=== PATIENT | male | born 1965 | race Caucasian/White ===

== ENCOUNTER 2020-01-08 13:02 | Inpatient (IN) | payer OTHER, SELFPAY ==
[2020-01-08] VITALS (22 sets, daily range): BP systolic 100–167; BP diastolic 53–102; PULSE 65–86; RESP 18–34; TEMP 36.9–37.4; O2SAT 70–100; BMI 45.2
--- NOTE | 2020-01-08 | CT_ITS ---
EXAMINATION: CT CHEST, ABDOMEN AND PELVIS WITHOUT IV CONTRAST CLINICAL INFORMATION: Hypoxia status post CPR. Status post CPR. Rule out hematoma COMPARISON: Chest x-ray 01/08/2020, earlier the same day. CT abdomen pelvis 09/08/2017 TECHNIQUE: Multidetector volumetric imaging was performed from the thoracic inlet through the pubic symphysis following the uneventful administration of: Oral contrast: No Intravenous contrast: None. Sagittal and coronal reformatted images were obtained on the technologist workstation. DLP [id number] examination was performed using dose optimization techniques as appropriate, variously including the following: *Automated exposure control *Adjustment of mA and/or kV according to patient size (this includes techniques or standardized protocols for targeted exams where dose is matched to indication/reason for exam; i.e. extremities or head) *Use of iterative reconstruction technique FINDINGS: CHEST: LUNG: There is bibasilar consolidation, at least in part atelectasis but there is likely superimposed aspiration or pneumonia as well. Overall lung volumes are low. Central airways are patent. Endotracheal tube seen with tip 4.5 cm above the celestina. MEDIASTINUM: Moderate cardiomegaly. Trace pericardial fluid. There are scattered prominent mediastinal lymph nodes. Among the largest on the following: A 1.7 x 1.1 cm left high prevascular lymph node, 2.0 x 1.1 cm right paratracheal lymph node, and a 1.2 x 1.1 cm right superior mediastinal lymph node. PLEURA: Small bilateral pleural effusions. CHEST WALL/AXILLA: No axillary or internal mammary lymphadenopathy. ABDOMEN/PELVIS: The lack of intravenous contrast limits evaluation of the solid visceral organs including the liver, spleen, pancreas, and kidneys. In addition, there is respiratory motion artifact during the exam. LIVER, GALLBLADDER, AND BILIARY TREE: Limited non-contrast evaluation is normal. No gross focal hepatic lesion. Normal liver size and contour. No gross biliary ductal dilation. The gallbladder is unremarkable with no evidence of radiopaque gallstones, gallbladder wall thickening, or obvious pericholecystic inflammatory changes. PANCREAS: Limited non-contrast evaluation is normal. No lauren-pancreatic fluid. SPLEEN: Limited non-contrast evaluation is normal. ADRENAL GLANDS: Normal; no adrenal mass. KIDNEYS AND URETERS: Limited non-contrast evaluation is normal. No hydronephrosis, hydroureter, or calculi seen. No perinephric stranding. GASTROINTESTINAL TRACT: An enteric tube descends the esophagus into the stomach. The tip is beyond the pylorus in the proximal duodenum. Small bowel is nondilated. No evidence of colitis or diverticulitis. ABDOMINAL WALL: There is fluid and fat stranding of the umbilicus. Recommend correlation with physical exam. LYMPH NODES: No pathologically enlarged lymph nodes in the abdomen or pelvis. VASCULAR: Normal caliber abdominal aorta. There is a right common femoral venous catheter. BLADDER: Bladder is collapsed with Mcleod catheter in place. PELVIC VISCERA: Normal noncontrast appearance of the prostate and seminal vesicles. OSSEOUS STRUCTURES: Right total hip arthroplasty with streak artifact. Degenerative changes of the spine. IMPRESSION: Small bilateral pleural effusions with bilateral lower lobe consolidation, at least in part atelectasis but there is likely some component of concomitant aspiration or pneumonia. Moderate cardiomegaly. Nonspecific mediastinal lymphadenopathy. There is fluid and fat stranding of the umbilicus. Recommend correlation with physical exam this could be scarring from prior laparoscopic surgery with an umbilical port. Although evaluation of the abdomen and pelvis is limited by lack of IV contrast and motion artifact, no acute abnormalities are seen.
--- NOTE | 2020-01-08 | CT_ITS ---
EXAMINATION: CT HEAD WITHOUT CONTRAST CLINICAL INFORMATION: Respiratory arrest. Status post CPR with poor return to baseline mental status. COMPARISON: None TECHNIQUE: Contiguous axial imaging was performed from the skull base to vertex without intravenous administration of contrast. This CT examination was performed using dose optimization techniques as appropriate, variously including the following: *Automated exposure control *Adjustment of mA and/or kV according to patient size (this includes techniques or standardized protocols for targeted exams where dose is matched to indication/reason for exam; i.e. extremities or head) *Use of iterative reconstruction technique DLP: 976.64 mGy-cm FINDINGS: The patient was moving, not cooperative for the CT exam. As result, there is motion degradation of images. No hemorrhage is identified. No evidence of cerebral edema. The goldstein-white matter differentiation appears to be maintained. No extra-axial fluid collection, focal mass effect or midline shift. The ventricles have normal size and configuration. The brainstem and cerebellar hemispheres are unremarkable. There is atherosclerotic calcification of cavernous carotid arteries. The mastoid air cells are well aerated. Mucosal thickening of ethmoid, sphenoid and maxillary sinuses without air-fluid levels. The orbits, globes and temporomandibular joints are unremarkable. IMPRESSION: * Images of the head are degraded in diagnostic quality due to patient motion. * No evidence of hemorrhage, cerebral edema or other acute intracranial pathology.
--- NOTE | 2020-01-08 13:13 | ED_ITS ---
HPI - CPR General Stated Complaint: RESPIRATORY ARREST Time Seen by Provider: 01/08/20 13:13 Source: family and EMS Mode of arrival: EMS Limitations: other (respiratory arrest unresponsive) History of Present Illness HPI narrative: patient showed up to grocery store c/o dyspnea to friend, 911 called, paramedics state patient arrested with them and stated I have fluid in my lungs. on arrival to the ED he was being bagged, PEA with no pulses, central and cyanotic, immediate CPR started MD complaint: stopped breathing Onset (ago): minute(s) (just prior to arrival ) Timing confirmed by: other (EMS) Place: street Bystander CPR performed: No AED applied by bystander/community health promoter: No Initial findings in the field: agonal and other rhythm (bradycardic) Associated symptoms: shortness of breath Known history of: other (asthma/CHF) Treatments prior to arrival: BMV Related Data Home Medications Medication Instructions Recorded Confirmed acetaminophen 650 mg PO Q12H PRN 01/08/20 01/08/20 albuterol sulfate [ProAir HFA] 2 puff INHALATION Q6H PRN 01/08/20 01/08/20 amlodipine 10 mg PO DAILY 01/08/20 01/08/20 atorvastatin 40 mg PO DAILY 01/08/20 01/08/20 buprenorphine-naloxone [Suboxone] 2.5 film BUCCAL DAILY 01/08/20 01/08/20 carvedilol 6.25 mg PO BID 01/08/20 01/08/20 cholecalciferol (vitamin D3) 25 mcg PO DAILY 01/08/20 01/08/20 [Vitamin D3] fluticasone propion-salmeterol 1 inh INHALATION BID 01/08/20 01/08/20 [AirDuo RespiClick] furosemide 20 mg PO DAILY 01/08/20 01/08/20 gabapentin 1,200 mg PO TID 01/08/20 01/08/20 isosorbide mononitrate 30 mg PO DAILY 01/08/20 01/08/20 lisinopril 40 mg PO DAILY 01/08/20 01/08/20 Allergies Allergy/AdvReac Type Severity Reaction Status Date / Time penicillin V Allergy Unknown Verified 08/22/19 00:00 Penicillins [PENICILLINS] Allergy Unknown UNKNOWN Unverified 12/13/19 15:15 penicillin AdvReac Unknown hives Uncoded 12/04/19 00:00 Review of Systems Review of Systems: ROS unable to be obtained due to altered mental status [facility] Past Medical History Source: old records reviewed Medical History (Updated 01/08/20 @ 15:02 by Malissa Reynolds DO) Arthritis Asthma CHF (congestive heart failure) Hernia HTN (hypertension) Social History Social History (Updated 01/08/20 @ 13:47 by Malissa Reynolds DO) Alcohol intake: current Smoking Status: Current every day smoker Substance Use Type Other:: family suspects had a long history a while ago Advance Directives: No Advance Directives Information Provided: No Physical Exam Vital Signs: Vital Signs: Vital Signs Temp Pulse BP Pulse Ox 01/08/20 13:52 99.3 F 81 157/99 H 100 01/08/20 13:40 99.1 F 85 130/90 H 100 01/08/20 13:35 84 167/102 H 100 Appearance: severe distress, cyanotic, no movement, no respirations Eyes: pupils fixed and dilated ENT: bloody secretions noted Neck: short neck and obese CVS: no spontaneous pulses, no cardiac activity on US Respiratory: severe respiratory distress. Breath sounds absent, cyanotic, being bagged on arrival Abdomen: Soft and obese Skin: Skin cool and cyanotic Extremities: No lower extremity edema. no trauma Neuro: no response to stimuli, no movements, fixed and dilated pupils. Course Course Course Narrative: ROSC after 4 to 5 minutes of CPR, IV steroids, IV lasix, nebulization, no neurologic activity at this time, pupils fixed and dilated sedation held Reevaluation(s) Reevaluation #1: pupils reactive 3mm, starting to move around, sedation ordered Time: 14:00 Reevaluation #2: lactic acidosis and lab abnormalities due to hypoxia and not infection or severe sepsis, responds better to propofol sedation, biting at his tube Time: 14:27 Procedures Procedure Narrative Procedure Narrative: CPR with manual compressions, 2 epi, BS 118, 1st cardiac US showed no activity and PEA on monitor, 2nd US after ROSC hyperkinetic activity Central Line Placement Right Femoral: Time Out Performed: Yes Patient Placed on Monitor/Pulse Ox: Yes MD Prep: mask, gown, gloves and other Central Line Prep: Chlorhexidine scrub and sterile drapes applied Ultrasound Used for Placement: Yes Central Line Lumen Inserted: triple Post Procedure: sutured in place, good blood return, all ports aspirated, flushed, capped and sterile dressing applied Post Procedure X-Ray: tip of catheter in good position Patient Tolerated Procedure: well Complications: none Intubation Time out performed: No sedative: none Laryngoscope: Williams ET Tube Size: 7.5 ET Tube Uncuffed: No Tube Secured Depth (cm): 24 Tube Secured Location: teeth Tube Placement Confirmation: visualized tube passing through cords and equal breath sounds bilaterally Patient Tolerated Procedure: other (2 attempts due to size and bloody secretions in airway) Intubation Complications: difficult intubation (2 attempts bagged in between done in less than 1 minute) MDM - Cardiac Arrest/CPR MDM Narrative Medical decision making narrative: 54 yo male with asthma and CHF - respiratory arrest with ROSC in ED suspect asthma/CHF, cyanotic on arrival without pulses, unknown downtime but no neurologic activity Lab Data Result diagrams: 01/08/20 13:28 01/08/20 13:28 Labs: Lab Results 01/08/20 01/08/20 01/08/20 Range/Units 13:05 13:27 13:28 WBC 10.2 (4.8-10.8) X10*3/uL RBC 4.56 L (4.60-5.80) X10*6/uL Hgb 14.4 (14.0-18.0) g/dl Hct 48.9 (42-52) % MCV 107.2 H (80-98) fL MCH 31.6 (27.0-33.0) pg MCHC 29.4 L (31.0-36.0) g/dl RDW 15.2 (11.0-16.0) % Plt Count 167 (160-400) X10*3/uL MPV 11.8 (9.4-12.4) fL Immature Gran % (Auto) 1.0 H (0.0-0.4) % Neut % (Auto) 62.4 (45-73) % Lymph % (Auto) 25.1 (20-40) % [place] % (Auto) 9.9 (2-11) % Eos % (Auto) 1.3 (0-4) % Baso % (Auto) 0.3 (0-2) % Lymph # (Auto) 2.6 (1.2-4.9) X10*3/uL [place] # (Auto) 1.0 (0.1-1.2) X10*3/uL Eos # (Auto) 0.1 (0.0-0.4) X10*3/uL Baso # (Auto) 0.0 (0.0-0.2) X10*3/uL Abs Immat Gran (auto) 0.10 H (0.00-0.03) X10*3/uL Absolute Neuts (auto) 6.4 (2.0-8.3) X10*3/uL Absolute Nucleated RBC 0.160 H (0.0-0.012) X10*3/uL Nucleated RBC % (auto) 1.6 H (0.0-0.2) /100WBC PT (10.8-13.0) SEC INR (0.9-1.1) APTT (24.1-38.0) SEC ABG pH (7.35-7.45) ABG pCO2 (32-45) mmhg ABG pO2 (83-108) mmhg ABG HCO3 (22-26) mmol/l ABG O2 Saturation % ABG Base Excess Oxygen Given Sodium (135-145) mmol/L Potassium (3.3-5.1) mmol/l Chloride (96-108) mmol/L Carbon Dioxide (22-29) mmol/L Anion Gap (12-20) BUN (9-16) mg/dL Creatinine (0.5-1.4) mg/dL Estim Creat Clear Calc Estimated GFR POC Glucose 113 (60-115) mg/dL Random Glucose (60-115) mg/dL Lactic Acid (0.5-2.0) mmol/L Calcium (8.4-10.2) mg/dL Magnesium (1.6-2.6) mg/dL Total Bilirubin (0.0-1.0) mg/dL Direct Bilirubin (0.0-0.5) mg/dL AST (5-37) U/L ALT (0-40) U/L Alkaline Phosphatase (39-117) U/L Total Protein (6.5-8.0) g/dL Albumin (3.5-5.0) g/dL Lipase (8-78) U/L Urine Color YELLOW Urine Appearance CLEAR Urine pH 6.0 (5.0-8.0) Ur Specific [place] 1.025 (1.005-1.025) Urine Protein 2+ H (NEG-TRACE) MG/DL Urine Glucose (UA) NEG (NEG) MG/DL Urine Ketones 5 (NEG) MG/DL Urine Blood TRACE (NEG) Urine Nitrite NEG (NEG) Ur Leukocyte Esterase NEG (NEG) Urine RBC 0-2 (0) /HPF Urine WBC 0 (0-4) /HPF Ur Squamous Epith Cells TRACE /LPF Urine Bacteria NONE /LPF Urine Sperm NOTED 01/08/20 01/08/20 01/08/20 Range/Units 13:28 13:28 13:28 WBC (4.8-10.8) X10*3/uL RBC (4.60-5.80) X10*6/uL Hgb (14.0-18.0) g/dl Hct (42-52) % MCV (80-98) fL MCH (27.0-33.0) pg MCHC (31.0-36.0) g/dl RDW (11.0-16.0) % Plt Count (160-400) X10*3/uL MPV (9.4-12.4) fL Immature Gran % (Auto) (0.0-0.4) % Neut % (Auto) (45-73) % Lymph % (Auto) (20-40) % [place] % (Auto) (2-11) % Eos % (Auto) (0-4) % Baso % (Auto) (0-2) % Lymph # (Auto) (1.2-4.9) X10*3/uL [place] # (Auto) (0.1-1.2) X10*3/uL Eos # (Auto) (0.0-0.4) X10*3/uL Baso # (Auto) (0.0-0.2) X10*3/uL Abs Immat Gran (auto) (0.00-0.03) X10*3/uL Absolute Neuts (auto) (2.0-8.3) X10*3/uL Absolute Nucleated RBC (0.0-0.012) X10*3/uL Nucleated RBC % (auto) (0.0-0.2) /100WBC PT 12.5 (10.8-13.0) SEC INR 1.1 (0.9-1.1) APTT 30.7 (24.1-38.0) SEC ABG pH (7.35-7.45) ABG pCO2 (32-45) mmhg ABG pO2 (83-108) mmhg ABG HCO3 (22-26) mmol/l ABG O2 Saturation % ABG Base Excess Oxygen Given Sodium 145 (135-145) mmol/L Potassium 3.8 (3.3-5.1) mmol/l Chloride 106 (96-108) mmol/L Carbon Dioxide 21 L (22-29) mmol/L Anion Gap 22 H (12-20) BUN 16 (9-16) mg/dL Creatinine 1.28 (0.5-1.4) mg/dL Estim Creat Clear Calc TNP Estimated GFR 59 POC Glucose (60-115) mg/dL Random Glucose 218 H (60-115) mg/dL Lactic Acid 10.3 H* (0.5-2.0) mmol/L Calcium 9.1 (8.4-10.2) mg/dL Magnesium 2.6 (1.6-2.6) mg/dL Total Bilirubin 0.8 (0.0-1.0) mg/dL Direct Bilirubin 0.4 (0.0-0.5) mg/dL AST 46 H (5-37) U/L ALT 51 H (0-40) U/L Alkaline Phosphatase 102 (39-117) U/L Total Protein 7.8 (6.5-8.0) g/dL Albumin 4.4 (3.5-5.0) g/dL Lipase 16 (8-78) U/L Urine Color Urine Appearance Urine pH (5.0-8.0) Ur Specific [place] (1.005-1.025) Urine Protein (NEG-TRACE) MG/DL Urine Glucose (UA) (NEG) MG/DL Urine Ketones (NEG) MG/DL Urine Blood (NEG) Urine Nitrite (NEG) Ur Leukocyte Esterase (NEG) Urine RBC (0) /HPF Urine WBC (0-4) /HPF Ur Squamous Epith Cells /LPF Urine Bacteria /LPF Urine Sperm 10/13/20 Range/Units 13:50 WBC (4.8-10.8) X10*3/uL RBC (4.60-5.80) X10*6/uL Hgb (14.0-18.0) g/dl Hct (42-52) % MCV (80-98) fL MCH (27.0-33.0) pg MCHC (31.0-36.0) g/dl RDW (11.0-16.0) % Plt Count (160-400) X10*3/uL MPV (9.4-12.4) fL Immature Gran % (Auto) (0.0-0.4) % Neut % (Auto) (45-73) % Lymph % (Auto) (20-40) % [place] % (Auto) (2-11) % Eos % (Auto) (0-4) % Baso % (Auto) (0-2) % Lymph # (Auto) (1.2-4.9) X10*3/uL [place] # (Auto) (0.1-1.2) X10*3/uL Eos # (Auto) (0.0-0.4) X10*3/uL Baso # (Auto) (0.0-0.2) X10*3/uL Abs Immat Gran (auto) (0.00-0.03) X10*3/uL Absolute Neuts (auto) (2.0-8.3) X10*3/uL Absolute Nucleated RBC (0.0-0.012) X10*3/uL Nucleated RBC % (auto) (0.0-0.2) /100WBC PT (10.8-13.0) SEC INR (0.9-1.1) APTT (24.1-38.0) SEC ABG pH 7.22 L (7.35-7.45) ABG pCO2 52 H (32-45) mmhg ABG pO2 199 H (83-108) mmhg ABG HCO3 21 L (22-26) mmol/l ABG O2 Saturation 99.3 % ABG Base Excess -7.5 Oxygen Given 100% Sodium (135-145) mmol/L Potassium (3.3-5.1) mmol/l Chloride (96-108) mmol/L Carbon Dioxide (22-29) mmol/L Anion Gap (12-20) BUN (9-16) mg/dL Creatinine (0.5-1.4) mg/dL Estim Creat Clear Calc Estimated GFR POC Glucose (60-115) mg/dL Random Glucose (60-115) mg/dL Lactic Acid (0.5-2.0) mmol/L Calcium (8.4-10.2) mg/dL Magnesium (1.6-2.6) mg/dL Total Bilirubin (0.0-1.0) mg/dL Direct Bilirubin (0.0-0.5) mg/dL AST (5-37) U/L ALT (0-40) U/L Alkaline Phosphatase (39-117) U/L Total Protein (6.5-8.0) g/dL Albumin (3.5-5.0) g/dL Lipase (8-78) U/L Urine Color Urine Appearance Urine pH (5.0-8.0) Ur Specific [place] (1.005-1.025) Urine Protein (NEG-TRACE) MG/DL Urine Glucose (UA) (NEG) MG/DL Urine Ketones (NEG) MG/DL Urine Blood (NEG) Urine Nitrite (NEG) Ur Leukocyte Esterase (NEG) Urine RBC (0) /HPF Urine WBC (0-4) /HPF Ur Squamous Epith Cells /LPF Urine Bacteria /LPF Urine Sperm ECG Data Attestation: I personally reviewed and interpreted this ECG as follows: ECG interpretation date: 01/08/20 ECG interpretation time: 13:17 Interpretation: Rate: 158 Rhythm: narrow complex tachycardia [place]: normal Normal P waves. Normal MARI. Normal QRS complex. ST T wave : nonspecific qTC:normal prior studies: unavailable The study has been interpreted contemporaneously by me. . 2nd EKG Rate: 80 Rhythm: NSR [place]: normal Normal P waves. Normal MARI. Normal QRS complex. ST T wave : normal qTC: normal prior studies: no acute ischemia The study has been interpreted contemporaneously by me. . Critical Care Time Critical Care Time Critical Care Time: Yes Total Critical Care Time: 60 Attestation: I personally attest to this time spent taking care of the patient Discharge Plan Discharge Clinical Impression: Cardiac arrest due to respiratory disorder, Acidosis, lactic, Asthma, Hypoxia, Congestive heart failure Patient Disposition: Admitted As Inpatient
--- NOTE | 2020-01-08 13:14 | ECG_ITS ---
Test Reason : CARDIAC ARREST Blood Pressure : / mmHG Vent. Rate : 080 BPM Atrial Rate : 080 BPM P-R Int : 174 ms QRS Dur : 084 ms QT Int : 382 ms P-R-T Axes : 071 039 065 degrees QTc Int : 440 ms Normal sinus rhythm Possible Left atrial enlargement Borderline ECG No previous ECGs available Referred By: Malissa Reynolds Electronically Signed By:LUZ ALCALA MD
--- NOTE | 2020-01-08 13:15 | XR_ITS ---
EXAMINATION: XR CHEST CLINICAL INFORMATION: Respiratory arrest, ETT placement. COMPARISON: 06/27/2017 TECHNIQUE: Frontal view of the chest was obtained. FINDINGS: Lordotic rotated positioning. Endotracheal tube present, tip approximately 5.6 cm from the celestina. Consider repositioning. Enlarged cardiac and mediastinal silhouette, accentuated by positioning/technique. There is vascular congestion. Multifocal airspace opacities in bilateral hemithoraces, more prominent in the upper lobes. No large pleural effusions. IMPRESSION: ET tube tip approximately 5.6 cm from the celestina. Clinically correlate. Vascular congestion. Multifocal airspace opacities in bilateral hemithoraces. This result was discussed with Malissa Reynolds at 1415 hours on 01/08/2020 and it was ascertained that the content and urgency of the report was understood at the time of direct communication.
[2020-01-08 13:34] LABS: MANUAL DIFF FLAG NO
[2020-01-08] MEDS: Furosemide 40 MG/4 ML VIAL IVPUSH (13:35)
[2020-01-08] MEDS: methylPREDNISolone Sod Succ/PF 125 MG/2 ML VIAL IVPUSH (13:38)
[2020-01-08 13:39] LABS: Basophils Percent Auto 0.3 % (0-2); Eosinophils Absolute Auto 0.1 X10*3/uL (0.0-0.4); Eosinophils Percent Auto 1.3 % (0-4); Hematocrit 48.9 % (42-52); Hemoglobin 14.4 g/dl (14.0-18.0); Lymphocytes Absolute Auto 2.6 X10*3/uL (1.2-4.9); Lymphocytes Percent Auto 25.1 % (20-40); Mean Corpuscular HGB Conc 29.4 g/dl (31.0-36.0); Mean Corpuscular Hemoglobin 31.6 pg (27.0-33.0); Mean Corpuscular Volume 107.2 fL (80-98); Mean Platelet Volume 11.8 fL (9.4-12.4); Monocytes Percent Auto 9.9 % (2-11); Neutrophils Absolute Auto 6.4 X10*3/uL (2.0-8.3); Neutrophils Percent Auto 62.4 % (45-73); Red Blood Count 4.56 X10*6/uL (4.60-5.80); Red Cell Distribution Width 15.2 % (11.0-16.0); White Blood Count 10.2 X10*3/uL (4.8-10.8)
[2020-01-08 13:47] LABS: INTERNATIONAL NORM RATIO 1.1 (0.9-1.1); Prothrombin Time 12.5 SEC (10.8-13.0)
--- NOTE | 2020-01-08 13:47 | PC.NURSE ---
REMAINS WELL SEDATED. SKIN PWD. PUPILS 3MM FIXED. CAP REFILL BRISK. CONTINUED EFFORTS FOR LABS. BP'S CHECKED MANUALLY INTERMITTENTLY. FAMILY UPDATED BY .
[2020-01-08 13:48] LABS: NRBC Pct Auto 1.6 /100WBC (0.0-0.2)
[2020-01-08 13:49] LABS: Platelet Count 167 X10*3/uL (160-400)
[2020-01-08 13:50] LABS: Partial Thromboplastin Time 30.7 SEC (24.1-38.0)
[2020-01-08 13:55] LABS: Glucose Urine UA NEG (NEG); Leukocyte Esterase Urine NEG (NEG); Nitrite Urine NEG (NEG); Specific Gravity - Urine 1.025 (1.005-1.025); Urine Blood TRACE (NEG); Urine Ketones 5 MG/DL (NEG); Urine Protein 2+ MG/DL (NEG-TRACE)
[2020-01-08 13:57] LABS: Appearance Urine CLEAR; Color Urine YELLOW
--- NOTE | 2020-01-08 13:57 | ECG_ITS ---
Test Reason : CARDIAC ARREST Blood Pressure : / mmHG Vent. Rate : 158 BPM Atrial Rate : 158 BPM P-R Int : 120 ms QRS Dur : 080 ms QT Int : 310 ms P-R-T Axes : 100 045 064 degrees QTc Int : 502 ms Sinus tachycardia Nonspecific ST abnormality Abnormal ECG No previous ECGs available Referred By: Malissa Reynolds Electronically Signed By:LUZ ALCALA MD
[2020-01-08 14:03] LABS: Alanine Aminotransferase 51 U/L (0-40); Albumin Level 4.4 g/dL (3.5-5.0); Alkaline Phosphatase 102 U/L (39-117); Aspartate Amino Transferase 46 U/L (5-37); Bilirubin Direct 0.4 mg/dL (0.0-0.5); Bilirubin Total 0.8 mg/dL (0.0-1.0); Blood Urea Nitrogen 16 mg/dL (9-16); Calcium 9.1 mg/dL (8.4-10.2); Estimated Glomerular Filt Rate 59; Glucose Random 218 mg/dL (60-115); Lactic Acid 10.3 mmol/L (0.5-2.0); Lipase 16 U/L (8-78); Magnesium 2.6 mg/dL (1.6-2.6); Total Protein 7.8 g/dL (6.5-8.0)
[2020-01-08] MEDS: fentaNYL citrate/NS 1,000 MCG/100 ML PLAST..BAG 2.5 MCG IVCONT (14:10)
[2020-01-08] MEDS: Midazolam HCl/PF 2 MG/2 ML VIAL IVPUSH ×3 (14:10→22:15)
[2020-01-08 14:11] LABS: ABG PCO2 52 mmhg (32-45); Base Excess ABG -7.5; HCO3 ABG 21 mmol/l (22-26); PO2 ABG 199 mmhg (83-108); pH ABG 7.22 (7.35-7.45)
[2020-01-08 14:12] LABS: Oxygen Saturation ABG 99.3 %
[2020-01-08 14:13] LABS: Anion Gap 22 (12-20); Carbon Dioxide 21 mmol/L (22-29); Chloride 106 mmol/L (96-108); Potassium 3.8 mmol/l (3.3-5.1); Sodium 145 mmol/L (135-145)
[2020-01-08 14:16] LABS: Glucose, Whole Blood 113 mg/dL (60-115)
[2020-01-08 14:17] LABS: RBC Urine 0-2 /HPF (0); Squamous Epithelial Cell Urine TRACE /LPF; WBC Urine 0 /HPF (0-4)
[2020-01-08 14:18] LABS: Pt Ventilation O2% 100%
[2020-01-08 14:18] LABS: Sperm Urine NOTED
[2020-01-08] MEDS: Midazolam HCl/NS 50 MG/50 ML PLAST..BAG IVCONT (14:20)
--- NOTE | 2020-01-08 14:23 | PC.NURSE ---
pt is a tough stick. call placed to phleb, no answer. called for page to ed.
[2020-01-08] MEDS: propofoL 200 MG/20 ML VIAL 50 MG IVPUSH ×2 (14:45→15:00)
[2020-01-08] MEDS: propofoL 1,000 MG/100 ML VIAL 18.18 MG IVCONT (14:55)
[2020-01-08 15:30] LABS: Ethanol < 10 mg/dL
[2020-01-08 15:33] LABS: Reflex Lactate? Lactic Acid Added
[2020-01-08 15:38] LABS: B Type Natriuretic Peptide 583 pg/mL (<100); Troponin-I High Sensitivity 20.9 ng/L (<3.5-35.0)
[2020-01-08] MEDS: levoFLOXacin/D5W 500 MG/100 ML PIGGYBACK 100 MG IV (15:39)
--- NOTE | 2020-01-08 15:47 | PC.NURSE ---
This rn has been with patient since arriva. care just transfered to satinder tompkins for transfer to icu. After intubation pt was well sedated. Aprox 20 minutes after intuvatio pt began to de la torre tube. Secretions became pink after pt bit his tounge. Pt needed frequent suctioning. :Labs were difficult to obtain. Sedaction titration was as folllows: Fentanyl drip 1420 increased to 75 mcg/hr, 1430 100mcg/hr, 1510 125 mcg/kr, 1530 150mcg/hr versed increased to 6mg/hr at 1445 Propfol drip increased to 60mcg/kg/min imidiatly after initial drip. Sister is currently at [facility]. ED DOc inserted femoral central line [id number] This rn has updated girlfriend via phone and sister at bedside. pt is makng urine. awaits transfer to icu.
--- NOTE | 2020-01-08 15:52 | XR_ITS ---
EXAMINATION: XR CHEST CLINICAL INFORMATION: Evaluate orogastric tube placement COMPARISON: Previous chest x-ray from earlier the same day TECHNIQUE: Frontal view of the chest was obtained. FINDINGS: There is an endotracheal tube with tip 5.8 cm above the celestina. There is a enteric tube appears coiled in the esophagus with tip projecting superiorly, not included in the [id number]. The cardiac silhouette is enlarged but stable. Mediastinal contours appear prominent but stable as well. There may be pulmonary venous redistribution. There is bilateral predominantly perihilar airspace disease. Differential would include pulmonary edema, pneumonia and the right clinical setting pulmonary hemorrhage. There is no pleural effusion or pneumothorax. Bony structures are unremarkable. IMPRESSION: Orogastric tube coiled in the esophagus. ET tube in satisfactory position. Stable enlargement of the cardiac silhouette and bilateral airspace disease.
[2020-01-08] MEDS: propofoL 1,000 MG/100 ML VIAL 45.45 MG IVCONT ×4 (16:24→23:25)
--- NOTE | 2020-01-08 16:51 | PM.CCHP ---
History of Present Illness Date of Service: 01/08/20 Chief Complaint: Cardiac arrest 54-year-old gentleman with underlying history of morbid obesity, obstructive sleep apnea, polysubstance abuse, congestive heart failure, brought in by EMS after he was noted to be short of breath and cyanotic at local grocery store. Patient likely with PEA cardiac arrest in transit or at arrival to ER. CPR started with return of spontaneous circulation after approximately 5 minutes, intubated during the CPR. Patient moving all 4 extremities after CPR requiring sedation while on ventilatory support. EKG without evidence of acute ST abnormality. Admitted to intensive care unit. Review of Systems Review of Systems: Yes unobtainable due to endotracheal tube, Unobtainable due to mental condition and Unobtainable due to mental status PMFSH Past Medical History Medical History Arthritis Asthma CHF (congestive heart failure) Hernia HTN (hypertension) Social History Social History Alcohol intake: current Smoking Status: Current every day smoker Substance Use Type Other:: family suspects had a long history a while ago Advance Directives: No Advance Directives Information Provided: No Meds Allergies Allergy/AdvReac Type Severity Reaction Status Date / Time penicillin V Allergy Unknown Verified 08/22/19 00:00 Penicillins [PENICILLINS] Allergy Unknown UNKNOWN Unverified 12/13/19 15:15 penicillin AdvReac Unknown hives Uncoded 12/04/19 00:00 Home Medications Medication Instructions Recorded Confirmed Type acetaminophen 650 mg PO Q12H PRN 01/08/20 01/08/20 History albuterol sulfate [ProAir HFA] 2 puff INHALATION Q6H PRN 01/08/20 01/08/20 History amlodipine 10 mg PO DAILY 01/08/20 01/08/20 History atorvastatin 40 mg PO DAILY 01/08/20 01/08/20 History buprenorphine-naloxone [Suboxone] 2.5 film BUCCAL DAILY 01/08/20 01/08/20 History carvedilol 6.25 mg PO BID 01/08/20 01/08/20 History cholecalciferol (vitamin D3) 25 mcg PO DAILY 01/08/20 01/08/20 History [Vitamin D3] fluticasone propion-salmeterol 1 inh INHALATION BID 01/08/20 01/08/20 History [AirDuo RespiClick] furosemide 20 mg PO DAILY 01/08/20 01/08/20 History gabapentin 1,200 mg PO TID 01/08/20 01/08/20 History isosorbide mononitrate 30 mg PO DAILY 01/08/20 01/08/20 History lisinopril 40 mg PO DAILY 01/08/20 01/08/20 History Physical Exam Vital Signs: Vital Signs: Vital Signs Temp Pulse Resp BP Pulse Ox 01/08/20 15:41 98.8 F 69 20 116/64 93 01/08/20 15:39 71 18 136/78 70 L 01/08/20 15:25 67 121/65 100 01/08/20 15:20 67 128/78 93 01/08/20 15:10 73 128/74 93 01/08/20 15:05 99.1 F 72 140/75 H 01/08/20 14:45 99.3 F 71 153/93 H 01/08/20 14:40 72 144/87 H 98 01/08/20 13:52 99.3 F 81 157/99 H 100 01/08/20 13:40 99.1 F 85 130/90 H 100 01/08/20 13:35 84 167/102 H 100 Const: General: no acute distress and other ( morbidly obese, sedated on the vent) Eyes: Sclerae: sclerae normal Pupils: Pupil size comments bilaterally ( pinpoint) Neck: Neck: Yes no lymphadenopathy, Yes trachea midline and Yes supple Resp: Auscultation: crackles ( diffuse bilateral) Cardio: Rate: regular rate Rhythm: regular rhythm Heart sounds: no gallops, no murmurs and no rubs GI: Palpation (GI): Soft to palpation and Other GI palpation findings present ( Nontender) Auscultation: normal bowel sounds Extrem: General: No clubbing, No cyanosis and Yes edema ( 2+ bilateral) Results Labs Labs: Laboratory Tests 01/08/20 01/08/20 01/08/20 13:05 13:27 13:28 WBC 10.2 RBC 4.56 L Hgb 14.4 Hct 48.9 MCV 107.2 H MCH 31.6 MCHC 29.4 L RDW 15.2 Plt Count 167 MPV 11.8 Immature Gran % (Auto) 1.0 H Neut % (Auto) 62.4 Lymph % (Auto) 25.1 Bailey % (Auto) 9.9 Eos % (Auto) 1.3 Baso % (Auto) 0.3 Lymph # (Auto) 2.6 Bailey # (Auto) 1.0 Eos # (Auto) 0.1 Baso # (Auto) 0.0 Abs Immat Gran (auto) 0.10 H Absolute Neuts (auto) 6.4 Absolute Nucleated RBC 0.160 H Nucleated RBC % (auto) 1.6 H PT INR APTT ABG pH ABG pCO2 ABG pO2 ABG HCO3 ABG O2 Saturation ABG Base Excess Oxygen Given Sodium Potassium Chloride Carbon Dioxide Anion Gap BUN Creatinine Estim Creat Clear Calc Estimated GFR POC Glucose 113 Random Glucose Lactic Acid Calcium Magnesium Total Bilirubin Direct Bilirubin AST ALT Alkaline Phosphatase Troponin I High Sens B-Natriuretic Peptide Total Protein Albumin Lipase Urine Color YELLOW Urine Appearance CLEAR Urine pH 6.0 Ur Specific Lawrence 1.025 Urine Protein 2+ H Urine Glucose (UA) NEG Urine Ketones 5 Urine Blood TRACE Urine Nitrite NEG Ur Leukocyte Esterase NEG Urine RBC 0-2 Urine WBC 0 Ur Squamous Epith Cells TRACE Urine Bacteria NONE Urine Sperm NOTED Ethyl Alcohol Blood Type Antibody Screen 01/08/20 01/08/20 01/08/20 13:28 13:28 13:28 WBC RBC Hgb Hct MCV MCH MCHC RDW Plt Count MPV Immature Gran % (Auto) Neut % (Auto) Lymph % (Auto) Bailey % (Auto) Eos % (Auto) Baso % (Auto) Lymph # (Auto) Bailey # (Auto) Eos # (Auto) Baso # (Auto) Abs Immat Gran (auto) Absolute Neuts (auto) Absolute Nucleated RBC Nucleated RBC % (auto) PT 12.5 INR 1.1 APTT 30.7 ABG pH ABG pCO2 ABG pO2 ABG HCO3 ABG O2 Saturation ABG Base Excess Oxygen Given Sodium 145 Potassium 3.8 Chloride 106 Carbon Dioxide 21 L Anion Gap 22 H BUN 16 Creatinine 1.28 Estim Creat Clear Calc TNP Estimated GFR 59 POC Glucose Random Glucose 218 H Lactic Acid 10.3 H* Calcium 9.1 Magnesium 2.6 Total Bilirubin 0.8 Direct Bilirubin 0.4 AST 46 H ALT 51 H Alkaline Phosphatase 102 Troponin I High Sens B-Natriuretic Peptide Total Protein 7.8 Albumin 4.4 Lipase 16 Urine Color Urine Appearance Urine pH Ur Specific [place] Urine Protein Urine Glucose (UA) Urine Ketones Urine Blood Urine Nitrite Ur Leukocyte Esterase Urine RBC Urine WBC Ur Squamous Epith Cells Urine Bacteria Urine Sperm Ethyl Alcohol Blood Type Antibody Screen 01/08/20 01/08/20 01/08/20 13:50 14:55 14:55 WBC RBC Hgb Hct MCV MCH MCHC RDW Plt Count MPV Immature Gran % (Auto) Neut % (Auto) Lymph % (Auto) Bailey % (Auto) Eos % (Auto) Baso % (Auto) Lymph # (Auto) Bailey # (Auto) Eos # (Auto) Baso # (Auto) Abs Immat Gran (auto) Absolute Neuts (auto) Absolute Nucleated RBC Nucleated RBC % (auto) PT INR APTT ABG pH 7.22 L ABG pCO2 52 H ABG pO2 199 H ABG HCO3 21 L ABG O2 Saturation 99.3 ABG Base Excess -7.5 Oxygen Given 100% Sodium Potassium Chloride Carbon Dioxide Anion Gap BUN Creatinine Estim Creat Clear Calc Estimated GFR POC Glucose Random Glucose Lactic Acid Calcium Magnesium Total Bilirubin Direct Bilirubin AST ALT Alkaline Phosphatase Troponin I High Sens 20.9 B-Natriuretic Peptide 583 H Total Protein Albumin Lipase Urine Color Urine Appearance Urine pH Ur Specific [place] Urine Protein Urine Glucose (UA) Urine Ketones Urine Blood Urine Nitrite Ur Leukocyte Esterase Urine RBC Urine WBC Ur Squamous Epith Cells Urine Bacteria Urine Sperm Ethyl Alcohol Blood Type O Positive Antibody Screen NEGATIVE 01/08/20 14:55 WBC RBC Hgb Hct MCV MCH MCHC RDW Plt Count MPV Immature Gran % (Auto) Neut % (Auto) Lymph % (Auto) Bailey % (Auto) Eos % (Auto) Baso % (Auto) Lymph # (Auto) Bailey # (Auto) Eos # (Auto) Baso # (Auto) Abs Immat Gran (auto) Absolute Neuts (auto) Absolute Nucleated RBC Nucleated RBC % (auto) PT INR APTT ABG pH ABG pCO2 ABG pO2 ABG HCO3 ABG O2 Saturation ABG Base Excess Oxygen Given Sodium Potassium Chloride Carbon Dioxide Anion Gap BUN Creatinine Estim Creat Clear Calc Estimated GFR POC Glucose Random Glucose Lactic Acid Calcium Magnesium Total Bilirubin Direct Bilirubin AST ALT Alkaline Phosphatase Troponin I High Sens B-Natriuretic Peptide Total Protein Albumin Lipase Urine Color Urine Appearance Urine pH Ur Specific [place] Urine Protein Urine Glucose (UA) Urine Ketones Urine Blood Urine Nitrite Ur Leukocyte Esterase Urine RBC Urine WBC Ur Squamous Epith Cells Urine Bacteria Urine Sperm Ethyl Alcohol < 10 Blood Type Antibody Screen Assessment and Plan (1) Cardiac arrest due to respiratory disorder: Status: Acute (2) Congestive heart failure: Qualifiers: Heart failure chronicity: acute on chronic Heart failure type: unspecified Qualified Code(s): I50.9 - Heart failure, unspecified Status: Acute Assessment: 54-year-old gentleman with underlying history of obesity, MARY, substance abuse, heart failure admitted with out of hospital cardiac arrest with unclear down time with returned spontaneous circulation after approximately 5 minutes of cardiopulmonary resuscitation, intubated during the CPR. Plan: Neuro: PEA arrest with unclear down time, patient moving all 4 extremities after arrest. Cardiac: PEA cardiac arrest, likely respiratory in etiology, underlying history of systolic heart failure. 2D echocardiogram is pending. Pulmonary: Acute hypoxic respiratory failure, likely secondary to combination of underlying systolic heart failure resulting in PEA cardiac arrest and obesity hypoventilation syndrome, intubated during the CPR. Continue ventilatory support. Renal: Non oliguric. Continue to monitor renal indices and urine output. Endo: No acute issues. GI: No acute issues. ID: No evidence of septic shock or severe sepsis. Heme/Onc: No acute issues. Psych: No acute issues. Miscellaneous: No acute issues. Prophylaxis: Heparin, famotidine Diet: nothing by mouth Critical care time spent: 90 minutes Critical Care Time Critical Care Time (minutes): 90
[2020-01-08] MEDS: 0.9 % Sodium Chloride Flush 3 ML SYRINGE IVFLUSH ×2 (17:23→23:31)
[2020-01-08] MEDS: Heparin Sodium,Porcine 5,000 UNIT/ML VIAL 5000 UNIT SUBCUT ×2 (17:29→23:29)
[2020-01-08 17:35] LABS: Base Excess VBG 0.3 mmol/L; HCO3 VBG 29 mmol/L; PCO2 VBG 65 mmhg; PO2 VBG 42 mmhg; pH VBG 7.26 (7.32-7.43)
[2020-01-08 17:36] LABS: Oxygen Saturation VBG 71.7 %
--- NOTE | 2020-01-08 17:36 | XR_ITS ---
EXAMINATION: XR CHEST CLINICAL INFORMATION: ET tube repositioned. NG tube placement COMPARISON: Chest x-ray today, 4 2:00 PM TECHNIQUE: Frontal portable view of the chest was obtained. 6:07 PM FINDINGS: Tubes and lines: 1. Endotracheal tube in good position proximal 5 cm above celestina. 2. OG tube passes down into the stomach. Catheter tip below lower margin of film. There is persistent central pulmonary vascular congestion. Persistent density the right lung base with silhouetting diaphragm due to pleural effusion and probable basilar consolidation/atelectasis. IMPRESSION: 1. Endotracheal tube in good position proximal 5 centimeters above celestina. 2. OG tube passes down into the stomach. Catheter tip below lower margin of film. 3. Persistent mild central pulmonary vascular congestion. Persistent density right lung base due to effusion and basilar consolidation/atelectasis.
[2020-01-08 17:42] LABS: ~Lactic Acid-LAB USE ONLY 1.3 mmol/L (0.5-2.0)
[2020-01-08 18:35] LABS: Amphetamine Screen Urine Not Detected (Not Detect); Barbiturates, Urine Not Detected (Not Detect); Benzodiazepines Screen Urine POSITIVE (Not Detect); Cannabinoid Screen Urine Not Detected (Not Detect); Cocaine Screen Urine POSITIVE (Not Detect); Opiate Screen Urine POSITIVE (Not Detect); Phencyclidine Screen Urine Not Detected (Not Detect)
[2020-01-08] MEDS: fentaNYL citrate/NS 1,000 MCG/100 ML PLAST..BAG 20 MCG IVCONT (19:24)
[2020-01-08] MEDS: Famotidine/PF 20 MG/2 ML VIAL IVPUSH (19:47)
[2020-01-08] MEDS: LORazepam 2 MG/ML VIAL IVPUSH (19:47)
[2020-01-08 21:20] LABS: Glucose, Whole Blood 149 mg/dL (60-115)
--- NOTE | 2020-01-08 23:18 | PC.NURSE ---
PT ARRIVING TO UNIT ~1640- PT INTUBATED AND SEDATE ON PROPOFOL AND FENTANYL GTT, VERSED GTT STOPPED D/C'ED BY MD DR MARTINEZ; VBG AND LA LABS DRAWN; INTUBATED WITH #7.5 ET TUBE AT 25 CM LOWER LIP LINE; BITE BLOCKED PLACED BY RT; PT ON AC 20, TV 500, PEEP 5- TRANSITIONED TO AC 22, TV 450 AND PEEP 8 AFTER VBG RESULTING; FAMILY UPDATED BY THIS RN AND MD DR MARTINEZ; SR ON MONITOR; VSS; TLC IN R FEM D&I; RESTRAINTS PLACED AT 1700; OG TUBE ALSO PLACED- CXR VERIFYING PLACEMENT, PLACED ON INTERMITTENT SUCTION; ? CONCERN FOR UNEQUAL PUPILS, PT TWITCHING WHOLE BODY WELL, JAW CLENCHED ON MAX DOSES OF SEDATION- DR MARTINEZ UPDATED- ORDERS FOR HEAD, CHEST, ABD AND PEVLIS CT SCAN- WENT TO CT ~2044 THIS EVENING- RESULTS PENDING, JUDY SWEET ON UNIT- DISUCSSING PT STATUS; 1X DOSE ORDERED AND GIVEN OF 2 MG ATIVAN FOR TESTING; TWITCHING PERSISTING INTO LATE EVENING- ADDITIONAL 2 MG VERSED GIVEN 1X DOSE- PT REMAINS ON HIGH DOSES OF PROPOFOL AND FENTANYL GTTS; SPOUSE DHARA UPDATED; PT PLACED ON PREVLON AIR POSITIONING MAT TO ASSIST STAFF WITH REPOSITIONING, PT ON AIRLOSS MECHANISM AIR MATTRESS; REPORT GIVEN TO ONCOMING MARCO A Grider AT 2300
[2020-01-09] VITALS (33 sets, daily range): BP systolic 101–220; BP diastolic 53–120; PULSE 69–110; RESP 22–40; TEMP 37.1–38.4; O2SAT 95–98; BMI 45.2
--- NOTE | 2020-01-09 | XR_ITS ---
EXAMINATION: XR CHEST CLINICAL INFORMATION: Hypoxia COMPARISON: 01/08/2020 TECHNIQUE: Frontal view of the chest was obtained. FINDINGS: ET tube 6 cm above celestina. NG tube is coursing in the stomach. The distal tip is not seen. Some mild clearing at the right base but some increasing opacities in the left lung upper mid and lower. IMPRESSION: ET tube 6.1 cm above the celestina. Some clearing at the right base. Increasing opacities on the left.
[2020-01-09] MEDS: fentaNYL citrate/NS 1,000 MCG/100 ML PLAST..BAG 20 MCG IVCONT ×5 (00:58→22:49)
[2020-01-09] MEDS: propofoL 1,000 MG/100 ML VIAL 45.45 MG IVCONT (00:59)
[2020-01-09] MEDS: LORazepam 2 MG/ML VIAL IVPUSH (02:48)
[2020-01-09] MEDS: Midazolam HCl/PF 2 MG/2 ML VIAL IVPUSH (02:49)
[2020-01-09] MEDS: Midazolam HCl/NS 50 MG/50 ML PLAST..BAG IVCONT (03:01)
[2020-01-09 03:24] LABS: Glucose, Whole Blood 129 mg/dL (60-115)
[2020-01-09] MEDS: Cisatracurium Besylate 20 MG/10 ML VIAL IVPUSH (03:49)
[2020-01-09] MEDS: CISATRACURIUM BESYLATE IVCONT (03:50)
[2020-01-09 04:28] LABS: Basophils Percent Auto 0.1 % (0-2); Imm Gran Abs Auto 0.05 X10*3/uL (0.00-0.03); Imm Gran Pct Auto 0.3 % (0.0-0.4); Lymphocytes Absolute Auto 0.5 X10*3/uL (1.2-4.9); Lymphocytes Percent Auto 3.3 % (20-40); MANUAL DIFF FLAG SCAN; Mean Corpuscular HGB Conc 31.1 g/dl (31.0-36.0); Mean Corpuscular Hemoglobin 31.8 pg (27.0-33.0); Mean Corpuscular Volume 102.3 fL (80-98); Mean Platelet Volume 11.7 fL (9.4-12.4); Monocytes Absolute Auto 0.9 X10*3/uL (0.1-1.2); Monocytes Percent Auto 6.1 % (2-11); NRBC Pct Auto 0.1 /100WBC (0.0-0.2); Neutrophils Absolute Auto 13.7 X10*3/uL (2.0-8.3); Neutrophils Percent Auto 90.2 % (45-73); Platelet Count 182 X10*3/uL (160-400); Red Cell Distribution Width 14.9 % (11.0-16.0); SCAN SMEAR FLAG 1; White Blood Count 15.2 X10*3/uL (4.8-10.8)
[2020-01-09 04:29] LABS: Base Excess VBG -1.4 mmol/L; HCO3 VBG 27 mmol/L; Oxygen Saturation VBG 76.6 %; PCO2 VBG 63 mmhg; PO2 VBG 48 mmhg; pH VBG 7.25 (7.32-7.43)
[2020-01-09] MEDS: Nitroglycerin/D5W 100 MG/250 ML INFUS..BTL IVCONT (04:32)
[2020-01-09] MEDS: Nitroglycerin 2 % Oint 1 GM Packet 1 INCH TRANSDERMA (04:36)
[2020-01-09] MEDS: Aspirin 325 MG TABLET PO (04:43)
[2020-01-09 04:50] LABS: SLIDE REVIEW VERIFIED; Troponin-I High Sensitivity 29.1 ng/L (<3.5-35.0)
[2020-01-09 04:52] LABS: Alanine Aminotransferase 51 U/L (0-40); Albumin Level 4.4 g/dL (3.5-5.0); Alkaline Phosphatase 98 U/L (39-117); Anion Gap 16 (12-20); Aspartate Amino Transferase 43 U/L (5-37); Bilirubin Total 0.8 mg/dL (0.0-1.0); Blood Urea Nitrogen 19 mg/dL (9-16); Carbon Dioxide 27 mmol/L (22-29); Chloride 105 mmol/L (96-108); Creatinine Clr Calc Pharmacy 96.8; Estimated Glomerular Filt Rate 57; Glucose Random 157 mg/dL (60-115); Magnesium 2.1 mg/dL (1.6-2.6); Phosphorus 5.1 mg/dL (2.7-4.5); Sodium 144 mmol/L (135-145); Total Protein 7.9 g/dL (6.5-8.0)
[2020-01-09 05:03] LABS: Lactate Dehydrogenase 357 U/L (118-273)
[2020-01-09 05:04] LABS: Calcium 9.3 mg/dL (8.4-10.2)
--- NOTE | 2020-01-09 05:37 | PC.NURSE ---
CARE ASSUMED 23:15...REMAINED TUBED/VENTED--VCV/AC MODE---PROPOFOL 50 MCG/KG/MIN & FENTANYL 200 MCG/HR...UNRESPONSIVE TO VERBAL STIMULI...PUPILS FIXED @ 3mm BILATERALLY...(+) COUGH REFLEX...NO WITHDRAWL TO PAIN...OVERBREATHING VENTILATOR...FREQUENT ?MYOCLONIC FACIAL/SHOULDER ACTIVITY--INCREASED LEVEL OF ?MYOCLONIC ACTIVIT WITH VENT DYSYNCHRONY..ICU PA PRESENT...ATIVAN 2MG IVP AND VERSED 2MG IVP GIVEN WITH ONLY SLIGHT EFFECT...PROPOFOL DRIP HELD AND STARTED ON VERSED DRIP W/O SIGNIFICANT IMPROVEMENT...REMAINS WITH VENT DYSYNCHRONY...NIMBEX BOLUS AND NIMBEX DRIP 3 MCG/KG/MIN (13.6 CC/HR) STARTED PER EMAR/PA...BP ELEVATED TO SBP 220'S/DBP 110-120....NITRO PASTE 1 APPLIED...ELEVATED ETCO2 & VENOUS GAS ACIDOSIS...AC RATE INCREASED FROM 22--24--26 PER PA..IV NTG DRIP STARTED AND TITRATED TO 80 MCG/MIN...SBP 160'S...GOAL SBP<170 PER PA...S.ATCH HR 100-110...T-MAX 101.4...REPEAT BLOOD CULTURES/LACTIC DRAWN CURRENTLY...FIO2 WEANED TO 90% BY RT...SAO2 96-97%....DIAPHORETIC...POC GLUCOSE & GLUCOSE VIA STAT LABS WNL...FREEMAN SEDIMENTED URINE
[2020-01-09 07:12] LABS: Glucose, Whole Blood 158 mg/dL (60-115)
[2020-01-09] MEDS: 0.9 % Sodium Chloride Flush 3 ML SYRINGE IVFLUSH ×3 (09:15→23:15)
[2020-01-09] MEDS: Heparin Sodium,Porcine 5,000 UNIT/ML VIAL 5000 UNIT SUBCUT ×3 (09:23→23:34)
[2020-01-09] MEDS: levoFLOXacin/D5W 750 MG/150 ML PIGGYBACK 100 MG IV (09:26)
[2020-01-09] MEDS: Famotidine/PF 20 MG/2 ML VIAL IVPUSH ×2 (09:26→21:00)
[2020-01-09] MEDS: propofoL 1,000 MG/100 ML VIAL 45.39 MG IVCONT ×6 (09:58→22:50)
--- NOTE | 2020-01-09 10:28 | MHC.CLN ---
RE: CONSULT RECOMMEND TF PROMOTE AT MAX GOAL RATE 55CC/HR TO PROVIDE 1320KCALS, 82.5G PROTEIN (1.0G/KG), 1107CC FREE WATER FROM FORMULA MONITOR TOLERANCE, RESIDUALS AND LYTES WILL ADD YAZAN FOR WOUND HEALING WILL ADJUST KCALS NEEDED R/T SEDATION FOLLOWING
--- NOTE | 2020-01-09 11:00 | CA_ITS ---
Transthoracic Echocardiogram Patient (Last, First, Middle): Momo Beck, Gender: Male Date of : 1965 Age: 54 Procedure Date: 01/09/2020 Procedure Type: Transthoracic Echocardiogram Location: ICU Height: 182. 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 The visually estimated ejection fraction is between 55-60%. - No obvious valvular pathology seen on this study. - Severe pulmonary hypertension is present. Estimated RVSP 62mmHg + RAP. Findings Procedure Information Contrast agent, definity, is being given per protocol without apparent complications. Left Ventricle Normal left ventricular cavity size. There is moderately increased left ventricular wall thickness. The left ventricular systolic function is normal. The visually estimated ejection fraction is between 55-60%. There is no evidence of regional wall motion abnormalities. Diastolic function is normal for age. Right Ventricle Normal right ventricular cavity size and systolic function. Atria Both atria are normal in size. Aortic Valve The aortic valve was not well visualized. There is no aortic valve stenosis. There is no aortic valve regurgitation. Mitral Valve The mitral valve appears normal. There is trace mitral valve regurgitation. There is no mitral valve stenosis. Pulmonic Valve The pulmonic valve was not well visualized. Tricuspid Valve There is mild tricuspid valve regurgitation. Severe pulmonary hypertension is present. Estimated RVSP 62mmHg + RAP. Great Vessels The aortic annulus, sinuses of valsalva, and asc aorta are normal in size. Venous The inferior vena cava is dilated and does not collapse with inspiration. (intubated) Pericardium/Pleural There is no evidence of pericardial effusion. Prior Study Comparison No prior study available for comparison. Recommendations, Care & Conclusions No obvious valvular pathology seen on this study. Measurements 2D Linear Measurements IVSd: 1.36 0.6-0.9/0.6-1.0 cm LVIDd: 5.61 3.9-5.3/4.2-5.9 cm LVIDd Index: 2.13 2.4-3.2/2.2-3.1 cm/m2 LVIDs: 4.04 2.0-3.6 cm LVPWd: 1.36 0.7-1.1 cm Ao Root: 3.10 2.1-3.5 cm LA Diam: 5.30 2.7-3.8/3.0-4.0 cm LAIDs Index: 2.01 1.5-2.3 cm/m2 LV Mass: 417.51 67-162/88-224 g LV Mass Index: 158.15 43-95/49-115 g/m2 LVOT Diam: 2.60 3.0+(-)1.3 cm 2D Systolic Function EF 4C: 64.90 >55% EF 2C: 48.00 >55% EF BiP: 55.90 >55% Mitral Valve MV Pk E: 0.97 MV PK A: 0.66 MV Decel Time: 99.00 E/A: 1.50 E'Lateral: 12.50 E'Medial: 9.48 E/E' Med: 10.20 E/E' Lat: 7.70 PHT: 29.00 MVA PHT: 7.59 Decel [place]: 9.79 Aortic Valve AoV Pk Colby: 1.80 AoV Mn Colby: 1.15 AoV VTI: 0.29 AoV Pk Grad: 13.00 Aov Mn Grad: 6.00 SUJEY Cont.VTI: 3.72 LVOT LVOT Pk [place]: 1.14 LVOT Mn [place]: 0.85 LVOT VTI: 0.21 LVOT Pk Grad: 5.00 LVOT Mn Grad: 3.00 LVOT Diam: 2.60 LVOT Area: 5.31 Diastolic Function MV Pk E: 0.97 MV Pk A: 0.66 E/A: 1.50 E'Medial: 9.48 E/E' Med: 10.20 E' Laterial: 12.50 E/E' Lat: 7.70 Tricuspid Valve TR Pk Colby: 3.79 TR Pk Grad: 57.00 Great Vessels Aorta Ao Root-2D: 3.10 2.0-3.7 cm Ao Asc: 3.60 2.1-3.4 cm Pulmonary Valve PV Pk Colby: 1.14 Peak PV Grad: 5.00 Updated in Other Vendor System with Status of Final Trent Hopper MD electronically signed on 01/09/2020 4:12:39 PM with status of Final
[2020-01-09 12:51] LABS: Glucose, Whole Blood 105 mg/dL (60-115)
--- NOTE | 2020-01-09 14:42 | P.PNCC_ITS ---
Subjective Subjective Date of Service: 01/09/20 Interval History: 54-year-old gentleman with underlying history of morbid obesity, obstructive sleep apnea, polysubstance abuse, congestive heart failure, brought in by EMS after he was noted to be short of breath and cyanotic at local grocery store. Patient likely with PEA cardiac arrest in transit or at arrival to ER. CPR started with return of spontaneous circulation after approximately 5 minutes, intubated during the CPR. Patient moving all 4 extremities after CPR requiring sedation while on ventilatory support. EKG without evidence of acute ST abnormality. Admitted to intensive care unit. Overnight with increased sedation requirements and ventilator dyssynchrony requiring initiation of paralytic drip. Physical Exam Vital Signs: Vital Signs: Vital Signs Temp Pulse Resp BP Pulse Ox 01/09/20 13:59 99.3 F 84 28 H 146/83 H 97 01/09/20 13:58 99.3 F 85 28 H 146/83 H 97 01/09/20 13:00 99.0 F 74 26 H 106/58 L 97 01/09/20 11:24 98.8 F 77 26 H 101/53 L 97 01/09/20 11:00 98.8 F 79 26 H 101/53 L 97 01/09/20 10:00 99.1 F 88 26 H 105/56 L 95 01/09/20 09:00 99.3 F 92 35 H 110/59 L 96 01/09/20 08:00 99.3 F 106 H 26 H 176/110 H 97 01/09/20 06:55 99.5 F 94 26 H 153/93 H 96 01/09/20 06:00 99.8 F 102 H 26 H 164/100 H 97 01/09/20 05:31 100.2 F 104 H 26 H 152/92 H 97 01/09/20 05:26 100.4 F 105 H 26 H 161/91 H 96 01/09/20 05:00 100.8 F H 108 H 26 H 172/102 H 97 01/09/20 04:36 110 H 220/110 H 01/09/20 04:00 101.1 F H 110 H 22 H 210/120 H 97 01/09/20 03:00 100.4 F 84 34 H 123/78 98 01/09/20 02:00 100.4 F 90 40 H 133/83 97 01/09/20 01:00 99.7 F 78 34 H 124/55 L 96 01/09/20 00:00 99.1 F 78 36 H 126/63 96 01/08/20 23:00 99.0 F 75 34 H 113/55 L 96 01/08/20 22:00 99 F 73 29 H 126/63 92 01/08/20 21:00 99.0 F 78 28 H 158/88 H 95 01/08/20 19:00 98.8 F 74 27 H 134/79 100 01/08/20 18:00 98.4 F 65 21 H 139/78 92 01/08/20 17:26 91 L 01/08/20 17:00 98.4 F 65 20 130/81 91 L 01/08/20 15:41 98.8 F 69 20 116/64 93 01/08/20 15:39 71 18 136/78 70 L 01/08/20 15:25 67 121/65 100 01/08/20 15:20 67 128/78 93 01/08/20 15:10 73 128/74 93 01/08/20 15:05 99.1 F 72 140/75 H 01/08/20 14:45 99.3 F 71 153/93 H Body Mass Index 45.2 Const: General: no acute distress and other ( sedated on the vent, obese) Eyes: Sclerae: sclerae normal Neck: Neck: Yes no lymphadenopathy, Yes trachea midline and Yes supple Resp: Auscultation: crackles ( bibasilar) Cardio: Rate: regular rate Rhythm: regular rhythm Heart sounds: no gallops, no murmurs and no rubs GI: Palpation (GI): Soft to palpation and Other GI palpation findings present ( Nontender) Auscultation: normal bowel sounds Extrem: General: No clubbing, No cyanosis and Yes edema ( 1+ bilateral) Objective Data Labs CBC & Chem 7: 01/09/20 04:10 01/09/20 04:10 Labs: Laboratory Results - last 24 hr 01/08/20 01/08/20 01/08/20 14:55 14:55 14:55 WBC RBC Hgb Hct MCV MCH MCHC RDW Plt Count MPV Immature Gran % (Auto) Neut % (Auto) Lymph % (Auto) [place] % (Auto) Eos % (Auto) Baso % (Auto) Lymph # (Auto) [place] # (Auto) Eos # (Auto) Baso # (Auto) Abs Immat Gran (auto) Absolute Neuts (auto) Absolute Nucleated RBC Nucleated RBC % (auto) Smear Tech's Comments VBG pH VBG pCO2 VBG Oxygen Liters/Min VBG pO2 VBG HCO3 VBG O2 Saturation VBG Base Excess Sodium Potassium Chloride Carbon Dioxide Anion Gap BUN Creatinine Estim Creat Clear Calc Estimated GFR POC Glucose Random Glucose Lactic Acid Lactic Acid Fup @ 2Hr Calcium Phosphorus Magnesium Total Bilirubin AST ALT Alkaline Phosphatase Lactate Dehydrogenase Troponin I High Sens 20.9 B-Natriuretic Peptide 583 H Total Protein Albumin Urine Opiates Screen Ur Barbiturates Screen Ur Phencyclidine Scrn Ur Amphetamines Screen U Benzodiazepines Scrn Urine Cocaine Screen U Marijuana (THC) Screen Ethyl Alcohol < 10 Blood Type O Positive Antibody Screen NEGATIVE 01/08/20 01/08/20 01/08/20 17:10 17:10 17:48 WBC RBC Hgb Hct MCV MCH MCHC RDW Plt Count MPV Immature Gran % (Auto) Neut % (Auto) Lymph % (Auto) [place] % (Auto) Eos % (Auto) Baso % (Auto) Lymph # (Auto) [place] # (Auto) Eos # (Auto) Baso # (Auto) Abs Immat Gran (auto) Absolute Neuts (auto) Absolute Nucleated RBC Nucleated RBC % (auto) Smear Tech's Comments VBG pH 7.26 L VBG pCO2 65 VBG Oxygen Liters/Min Not Reportable VBG pO2 42 VBG HCO3 29 VBG O2 Saturation 71.7 VBG Base Excess 0.3 Sodium Potassium Chloride Carbon Dioxide Anion Gap BUN Creatinine Estim Creat Clear Calc Estimated GFR POC Glucose Random Glucose Lactic Acid Lactic Acid Fup @ 2Hr 1.3 Calcium Phosphorus Magnesium Total Bilirubin AST ALT Alkaline Phosphatase Lactate Dehydrogenase Troponin I High Sens B-Natriuretic Peptide Total Protein Albumin Urine Opiates Screen POSITIVE H Ur Barbiturates Screen Not Detected Ur Phencyclidine Scrn Not Detected Ur Amphetamines Screen Not Detected U Benzodiazepines Scrn POSITIVE H Urine Cocaine Screen POSITIVE H U Marijuana (THC) Screen Not Detected Ethyl Alcohol Blood Type Antibody Screen 01/08/20 01/09/20 01/09/20 21:17 03:20 04:10 WBC RBC Hgb Hct MCV MCH MCHC RDW Plt Count MPV Immature Gran % (Auto) Neut % (Auto) Lymph % (Auto) [place] % (Auto) Eos % (Auto) Baso % (Auto) Lymph # (Auto) [place] # (Auto) Eos # (Auto) Baso # (Auto) Abs Immat Gran (auto) Absolute Neuts (auto) Absolute Nucleated RBC Nucleated RBC % (auto) Smear Tech's Comments VBG pH VBG pCO2 VBG Oxygen Liters/Min VBG pO2 VBG HCO3 VBG O2 Saturation VBG Base Excess Sodium Potassium Chloride Carbon Dioxide Anion Gap BUN Creatinine Estim Creat Clear Calc Estimated GFR POC Glucose 149 H 129 H Random Glucose Lactic Acid Lactic Acid Fup @ 2Hr Calcium Phosphorus Cancelled Magnesium Total Bilirubin AST ALT Alkaline Phosphatase Lactate Dehydrogenase Troponin I High Sens B-Natriuretic Peptide Total Protein Albumin Urine Opiates Screen Ur Barbiturates Screen Ur Phencyclidine Scrn Ur Amphetamines Screen U Benzodiazepines Scrn Urine Cocaine Screen U Marijuana (THC) Screen Ethyl Alcohol Blood Type Antibody Screen 01/09/20 01/09/20 01/09/20 04:10 04:10 04:10 WBC 15.2 H RBC 4.40 L Hgb 14.0 Hct 45.0 MCV 102.3 H MCH 31.8 MCHC 31.1 RDW 14.9 Plt Count 182 MPV 11.7 Immature Gran % (Auto) 0.3 Neut % (Auto) 90.2 H Lymph % (Auto) 3.[address] [place] % (Auto) 6.1 Eos % (Auto) 0.0 Baso % (Auto) 0.1 Lymph # (Auto) 0.[address] [place] # (Auto) 0.9 Eos # (Auto) 0.0 Baso # (Auto) 0.0 Abs Immat Gran (auto) 0.05 H Absolute Neuts (auto) 13.7 H Absolute Nucleated RBC 0.020 H Nucleated RBC % (auto) 0.1 Smear Tech's Comments VERIFIED VBG pH VBG pCO2 VBG Oxygen Liters/Min VBG pO2 VBG HCO3 VBG O2 Saturation VBG Base Excess Sodium Potassium Chloride Carbon Dioxide Anion Gap BUN Creatinine Estim Creat Clear Calc Estimated GFR POC Glucose Random Glucose Lactic Acid Lactic Acid Fup @ 2Hr Calcium Phosphorus Magnesium Total Bilirubin AST ALT Alkaline Phosphatase Lactate Dehydrogenase Troponin I High Sens 29.1 B-Natriuretic Peptide Total Protein Albumin Cancelled Urine Opiates Screen Ur Barbiturates Screen Ur Phencyclidine Scrn Ur Amphetamines Screen U Benzodiazepines Scrn Urine Cocaine Screen U Marijuana (THC) Screen Ethyl Alcohol Blood Type Antibody Screen 01/09/20 01/09/20 01/09/20 04:10 04:11 04:11 WBC RBC Hgb Hct MCV MCH MCHC RDW Plt Count MPV Immature Gran % (Auto) Neut % (Auto) Lymph % (Auto) [place] % (Auto) Eos % (Auto) Baso % (Auto) Lymph # (Auto) [place] # (Auto) Eos # (Auto) Baso # (Auto) Abs Immat Gran (auto) Absolute Neuts (auto) Absolute Nucleated RBC Nucleated RBC % (auto) Smear Tech's Comments VBG pH 7.25 L VBG pCO2 63 VBG Oxygen Liters/Min Not Reportable VBG pO2 48 VBG HCO3 27 VBG O2 Saturation 76.6 VBG Base Excess -1.4 Sodium 144 Potassium 4.0 Chloride 105 Carbon Dioxide 27 Anion Gap 16 BUN 19 H Creatinine 1.32 Estim Creat Clear Calc 96.8 Estimated GFR 57 POC Glucose Random Glucose 157 H Lactic Acid Lactic Acid Fup @ 2Hr Calcium 9.3 Phosphorus 5.1 H Magnesium 2.1 Cancelled Total Bilirubin 0.8 AST 43 H ALT 51 H Alkaline Phosphatase 98 Lactate Dehydrogenase 357 H Troponin I High Sens B-Natriuretic Peptide Total Protein 7.9 Albumin 4.4 Urine Opiates Screen Ur Barbiturates Screen Ur Phencyclidine Scrn Ur Amphetamines Screen U Benzodiazepines Scrn Urine Cocaine Screen U Marijuana (THC) Screen Ethyl Alcohol Blood Type Antibody Screen 01/09/20 01/09/20 01/09/20 05:42 07:08 12:48 WBC RBC Hgb Hct MCV MCH MCHC RDW Plt Count MPV Immature Gran % (Auto) Neut % (Auto) Lymph % (Auto) [place] % (Auto) Eos % (Auto) Baso % (Auto) Lymph # (Auto) [place] # (Auto) Eos # (Auto) Baso # (Auto) Abs Immat Gran (auto) Absolute Neuts (auto) Absolute Nucleated RBC Nucleated RBC % (auto) Smear Tech's Comments VBG pH VBG pCO2 VBG Oxygen Liters/Min VBG pO2 VBG HCO3 VBG O2 Saturation VBG Base Excess Sodium Potassium Chloride Carbon Dioxide Anion Gap BUN Creatinine Estim Creat Clear Calc Estimated GFR POC Glucose 158 H 105 Random Glucose Lactic Acid 1.0 Lactic Acid Fup @ 2Hr Calcium Phosphorus Magnesium Total Bilirubin AST ALT Alkaline Phosphatase Lactate Dehydrogenase Troponin I High Sens B-Natriuretic Peptide Total Protein Albumin Urine Opiates Screen Ur Barbiturates Screen Ur Phencyclidine Scrn Ur Amphetamines Screen U Benzodiazepines Scrn Urine Cocaine Screen U Marijuana (THC) Screen Ethyl Alcohol Blood Type Antibody Screen Progress Note: A&P Assessment and plan (1) Cardiac arrest: Status: Acute (2) Acute respiratory failure with hypoxia: Status: Acute (3) Aspiration pneumonia: Status: Acute (4) Congestive heart failure: Status: Acute (5) Cocaine abuse: Status: Acute Assessment and Plan: Assessment: 54-year-old gentleman with underlying history of obesity, MARY, substance abuse, heart failure admitted with out of hospital cardiac arrest with unclear down time with returned spontaneous circulation after approximately 5 minutes of cardiopulmonary resuscitation, intubated during the CPR. Plan: Neuro: PEA arrest with unclear down time, patient moving all 4 extremities after arrest. No return to consciousness with sedation vacation today, will repeat in a.m. Cardiac: PEA cardiac arrest, with underlying cocaine intoxication, underlying history of systolic heart failure. 2D echocardiogram is pending. Pulmonary: Acute hypoxic respiratory failure, intubated during the CPR. Continue ventilatory support. Also, now with aspiration pneumonia Likely as a sequela of aspirating during cardiac arrest. Renal: Non oliguric. Continue to monitor renal indices and urine output. Endo: No acute issues. GI: No acute issues. ID: Aspiration pneumonia covered with Levaquin secondary to penicillin allergy. Heme/Onc: No acute issues. Psych: No acute issues. Miscellaneous: No acute issues. Prophylaxis: Heparin, famotidine Diet: Tube feeds Critical care time spent: 60 minutes Time Spent With Patient Time: Total time spent is greater than 50% in coordination of care (as documented) at patient's floor/unit and/or counseling patient: Total time spent with greater than 50% in coordination of care (as documented) at patient's floor/unit and/or counseling patient:: 0 Critical Care Time Critical Care Time (minutes): 60
--- NOTE | 2020-01-09 16:17 | MHC.CM.PN ---
Attempted to meet with patient in regards to discharge planning. Patient is currently intubated/vented in the ICU. Will attempt to reach out to family to complete case management assessment. Continue to monitor for d/c needs.
--- NOTE | 2020-01-09 16:22 | ECG_ITS ---
Test Reason : rhythm change Blood Pressure : / mmHG Vent. Rate : 109 BPM Atrial Rate : 109 BPM P-R Int : 176 ms QRS Dur : 088 ms QT Int : 320 ms P-R-T Axes : 064 027 067 degrees QTc Int : 430 ms Sinus tachycardia Left atrial enlargement Intra-ventricular conduction delay Borderline ECG When compared with ECG of 08-JAN-2020 13:43, No significant change was found Heart rate has increased Referred By: Eloy Vasquez Electronically Signed By:LUZ ALCALA MD
[2020-01-09 17:46] LABS: Glucose, Whole Blood 94 mg/dL (60-115)
[2020-01-09 18:10] LABS: Alanine Aminotransferase 39 U/L (0-40); Albumin Level 3.6 g/dL (3.5-5.0); Alkaline Phosphatase 82 U/L (39-117); Anion Gap 12 (12-20); Aspartate Amino Transferase 42 U/L (5-37); Bilirubin Total 0.4 mg/dL (0.0-1.0); Blood Urea Nitrogen 22 mg/dL (9-16); Calcium 8.7 mg/dL (8.4-10.2); Carbon Dioxide 29 mmol/L (22-29); Chloride 107 mmol/L (96-108); Creatinine Clr Calc Pharmacy 113.1; Estimated Glomerular Filt Rate > 60; Glucose Random 104 mg/dL (60-115); Potassium 3.6 mmol/l (3.3-5.1); Sodium 144 mmol/L (135-145); Total Protein 6.7 g/dL (6.5-8.0)
[2020-01-09 23:29] LABS: Glucose, Whole Blood 99 mg/dL (60-115)
[2020-01-10] VITALS (41 sets, daily range): BP systolic 120–186; BP diastolic 37–120; PULSE 91–113; RESP 24–44; TEMP 38.1–40; O2SAT 85–98; BMI 45.7
[2020-01-10] MEDS: Midazolam HCl/PF 2 MG/2 ML VIAL IVPUSH ×2 (00:57→20:54)
[2020-01-10] MEDS: Acetylcysteine 10 % 400 MG/4 ML VIAL INHALE (00:58)
[2020-01-10] MEDS: Albuterol Sulfate (0.083%) 2.5 MG/3 ML VIAL.NEB INHALE (00:59)
[2020-01-10] MEDS: propofoL 1,000 MG/100 ML VIAL 45.39 MG IVCONT ×11 (01:01→23:39)
[2020-01-10 01:04] LABS: Base Excess VBG 1.8 mmol/L; HCO3 VBG 31 mmol/L; Oxygen Saturation VBG 81.5 %; PCO2 VBG 68 mmhg; PO2 VBG 53 mmhg; pH VBG 7.27 (7.32-7.43)
[2020-01-10 01:05] LABS: Blood Gas Serial # 5414
--- NOTE | 2020-01-10 02:20 | PC.NURSE ---
CARE ASSUMED 23;15...REMAINED TUBED/VENT--AC/VCV NODE...SEDATED PROPOFOL 50 MCG/KG/MIN & FENTANYL 200 MCG/HR...(+) GAG/COUGH...OVERBREATHEING WITH RR 30-34...SAO2 95-96%...PUPILS 3-4MM AND SLUGGISH--NO WITHDRAWL OF EXTREMETIES TO PAIN...S.TACH..HR 100'S...REMAINS FEBRILE 100.8--101.3..APPROX 12AM DESATING--RR 44-48...SUCTIONED CREAM SPUTUM VIA ETT...REMAINS HYPOXIC...RT/PA AT BEDSIDE...LAVAGED W/O EFFECT...DECREASED Ve/TV...STAT CXR DONE..[id number] IVP FOR VENT DYSYNCHRONY...PATIENT PLACED RIGHT SIDE DOWNWARD PER PA...CHEST PT DONE BY RT...THICK CREAM SECRETIONS OBTAINED...FIO2 TO 90% AND PEEP INCREASED TO 10CM...GRADUAL IMPROVED SAO2 AND RETURN OF VENT SYNCHRONY..MUCOMYST UPDRAFT GIVEN BY RT X1...TO MAINTAIN RIGHT SIDE DOWNWARD AND TO HOLD TUBE FEEDS PER PA
[2020-01-10] MEDS: fentaNYL citrate/NS 1,000 MCG/100 ML PLAST..BAG 20 MCG IVCONT ×4 (03:47→20:52)
--- NOTE | 2020-01-10 05:12 | PC.NURSE ---
RR 32-36 ON AC 26/ TV 450/FIO2 90%/PEEP 10---ETCO2 37-38....REPEAT CHEST PT DONE THIS AM...MODERATE THICK CREAM SECRETIONS OBTAINED...MAINTAINED LEFT SIDE UP PER ICU PA
[2020-01-10 05:52] LABS: Basophils Percent Auto 0.1 % (0-2); Hematocrit 42.3 % (42-52); Hemoglobin 13.1 g/dl (14.0-18.0); Imm Gran Abs Auto 0.05 X10*3/uL (0.00-0.03); Imm Gran Pct Auto 0.4 % (0.0-0.4); Lymphocytes Absolute Auto 0.3 X10*3/uL (1.2-4.9); Lymphocytes Percent Auto 2.6 % (20-40); MANUAL DIFF FLAG SCAN; Mean Corpuscular Volume 103.2 fL (80-98); Mean Platelet Volume 11.2 fL (9.4-12.4); Monocytes Absolute Auto 0.8 X10*3/uL (0.1-1.2); Monocytes Percent Auto 7.4 % (2-11); Neutrophils Percent Auto 89.5 % (45-73); Platelet Count 149 X10*3/uL (160-400); Red Cell Distribution Width 15.1 % (11.0-16.0); SCAN SMEAR FLAG 1; White Blood Count 11.1 X10*3/uL (4.8-10.8)
[2020-01-10 06:14] LABS: Base Excess VBG 1.7 mmol/L; Blood Gas Serial # 5414; HCO3 VBG 27 mmol/L; Oxygen Saturation VBG 84.3 %; PCO2 VBG 45 mmhg; PO2 VBG 52 mmhg
--- NOTE | 2020-01-10 06:15 | PC.NURSE ---
tube feeds restarted 20 cc/hr at 4am per pa...to titrate per emar as tolerated...to hold am h20 bolus per pa
[2020-01-10 06:16] LABS: SLIDE REVIEW VERIFIED
[2020-01-10 06:21] LABS: Alanine Aminotransferase 37 U/L (0-40); Albumin Level 3.6 g/dL (3.5-5.0); Alkaline Phosphatase 80 U/L (39-117); Anion Gap 14 (12-20); Aspartate Amino Transferase 61 U/L (5-37); Bilirubin Total 0.5 mg/dL (0.0-1.0); Blood Urea Nitrogen 22 mg/dL (9-16); Calcium 8.6 mg/dL (8.4-10.2); Carbon Dioxide 28 mmol/L (22-29); Chloride 104 mmol/L (96-108); Creatinine Clr Calc Pharmacy 113.9; Estimated Glomerular Filt Rate > 60; Glucose Random 114 mg/dL (60-115); Phosphorus 3.2 mg/dL (2.7-4.5); Potassium 3.7 mmol/l (3.3-5.1); Sodium 142 mmol/L (135-145); Total Protein 6.7 g/dL (6.5-8.0)
[2020-01-10] MEDS: 0.9 % Sodium Chloride Flush 3 ML SYRINGE IVFLUSH ×3 (07:22→23:37)
[2020-01-10] MEDS: levoFLOXacin/D5W 750 MG/150 ML PIGGYBACK 100 MG IV (07:25)
[2020-01-10] MEDS: Heparin Sodium,Porcine 5,000 UNIT/ML VIAL 5000 UNIT SUBCUT ×3 (07:25→23:37)
[2020-01-10] MEDS: Furosemide 40 MG/4 ML VIAL IVPUSH (08:21)
--- NOTE | 2020-01-10 09:25 | MHC.CM.PN ---
pt lives alone in apt. he is independent in his care. he does have sisters and a mother that live in the area; and a daughter that lives in the [place] area. they may be helpful if pt needs assistance at dc, this assistance may include transportation at dc. at this time pt is in the icu; intubated, sedated and on mech. ventilator. it looks like pt could return home no svcs p a care team consult. however, this will have to be ascertained p pt is extubated , communicating and demonstrates his functionality c adl's. dc plan is uncertain at this time . cm to cont. to follow.
[2020-01-10 10:56] LABS: Glucose, Whole Blood 136 mg/dL (60-115)
--- NOTE | 2020-01-10 13:31 | PM.CCPN ---
Subjective Subjective Date of Service: 01/10/20 Interval History: 54-year-old gentleman with underlying history of morbid obesity, obstructive sleep apnea, polysubstance abuse, congestive heart failure, brought in by EMS after he was noted to be short of breath and cyanotic at local grocery store. Patient likely with PEA cardiac arrest in transit or at arrival to ER. CPR started with return of spontaneous circulation after approximately 5 minutes, intubated during the CPR. Patient moving all 4 extremities after CPR requiring sedation while on ventilatory support. EKG without evidence of acute ST abnormality. Admitted to intensive care unit. overnight with an episode of mucus plugging requiring manual bagging and lavage resolved with chest PT and suctioning. Physical Exam Vital Signs: Vital Signs: Vital Signs Temp Pulse Resp BP Pulse Ox 01/10/20 13:00 101.7 F H 96 30 H 146/76 H 95 01/10/20 11:53 102.0 F H 99 36 H 125/69 96 01/10/20 11:00 102.0 F H 99 34 H 125/69 95 01/10/20 09:48 102.2 F H 102 H 34 H 120/37 L 01/10/20 08:55 102.0 F H 102 H 37 H 137/53 L 95 01/10/20 07:43 102.0 F H 103 H 36 H 127/65 95 01/10/20 07:00 102.0 F H 102 H 35 H 143/78 H 95 01/10/20 05:57 101.8 F H 102 H 34 H 145/73 H 96 01/10/20 04:58 101.7 F H 105 H 36 H 136/68 96 01/10/20 04:00 101.3 F H 106 H 35 H 182/95 H 94 01/10/20 03:00 101.2 F H 105 H 34 H 168/97 H 95 01/10/20 02:00 100.8 F H 105 H 34 H 161/98 H 96 01/10/20 01:00 101.1 F H 102 H 30 H 156/92 H 95 01/10/20 00:50 101.1 F H 113 H 33 H 163/120 H 95 01/10/20 00:45 101.1 F H 100 32 H 173/103 H 97 01/10/20 00:40 101.1 F H 101 H 32 H 176/107 H 98 01/10/20 00:35 101.3 F H 106 H 34 H 186/93 H 98 01/10/20 00:20 101.1 F H 112 H 38 H 182/110 H 90 L 01/10/20 00:00 100.6 F H 107 H 24 H 179/108 H 85 L 01/09/20 22:56 97 32 H 160/102 H 96 01/09/20 22:00 100.0 F 105 H 25 H 160/102 H 95 01/09/20 21:00 97 32 H 149/88 H 96 01/09/20 19:52 99.8 F 83 26 H 127/74 97 01/09/20 18:50 87 25 H 159/101 H 98 01/09/20 17:43 69 26 H 144/86 H 96 01/09/20 16:53 86 26 H 156/101 H 96 01/09/20 16:00 99.9 F 82 26 H 153/91 H 97 01/09/20 13:59 99.3 F 84 28 H 146/83 H 97 01/09/20 13:58 99.3 F 85 28 H 146/83 H 97 Body Mass Index 45.7 Const: General: no acute distress and other ( Sedated on the vent, no awakening with sedation vacation) Nutritional Appearance: obese Eyes: Sclerae: sclerae normal Pupils: Equal, round and reactive pupils present Neck: Neck: Yes no lymphadenopathy, Yes trachea midline and Yes supple Resp: Effort & Inspection: normal respiratory effort and no respiratory distress Auscultation: clear to auscultation bilaterally Cardio: Rate: regular rate Rhythm: regular rhythm Heart sounds: no gallops, no murmurs and no rubs GI: Palpation (GI): Soft to palpation and Other GI palpation findings present ( Nontender) Auscultation: normal bowel sounds Neuro: Cranial nerves: Yes Equal, round and reactive pupils present Extrem: General: No clubbing, No cyanosis and Yes edema ( 1+ bilateral) Objective Data Labs CBC & Chem 7: 01/10/20 05:25 01/10/20 05:24 Labs: Laboratory Results - last 24 hr 01/09/20 01/09/20 01/09/20 16:55 17:36 23:26 WBC RBC Hgb Hct MCV MCH MCHC RDW Plt Count MPV Immature Gran % (Auto) Neut % (Auto) Lymph % (Auto) [place] % (Auto) Eos % (Auto) Baso % (Auto) Lymph # (Auto) [place] # (Auto) Eos # (Auto) Baso # (Auto) Abs Immat Gran (auto) Absolute Neuts (auto) Absolute Nucleated RBC Nucleated RBC % (auto) Smear Tech's Comments VBG pH VBG pCO2 VBG Oxygen Liters/Min VBG pO2 VBG HCO3 VBG O2 Saturation VBG Base Excess Sodium 144 Potassium 3.6 Chloride 107 Carbon Dioxide 29 Anion Gap 12 BUN 22 H Creatinine 1.13 Estim Creat Clear Calc 113.1 Estimated GFR > 60 POC Glucose 94 99 Random Glucose 104 Calcium 8.7 Phosphorus Magnesium Total Bilirubin 0.4 AST 42 H ALT 39 Alkaline Phosphatase 82 Total Protein 6.7 Albumin 3.6 01/10/20 01/10/20 01/10/20 00:45 05:24 05:25 WBC 11.1 H RBC 4.10 L Hgb 13.1 L Hct 42.3 MCV 103.2 H MCH 32.0 MCHC 31.0 RDW 15.1 Plt Count 149 L MPV 11.2 Immature Gran % (Auto) 0.4 Neut % (Auto) 89.5 H Lymph % (Auto) 2.6 L [place] % (Auto) 7.4 Eos % (Auto) 0.0 Baso % (Auto) 0.1 Lymph # (Auto) 0.3 L [place] # (Auto) 0.8 Eos # (Auto) 0.0 Baso # (Auto) 0.0 Abs Immat Gran (auto) 0.05 H Absolute Neuts (auto) 10.0 H Absolute Nucleated RBC 0.000 Nucleated RBC % (auto) 0.0 Smear Tech's Comments VERIFIED VBG pH 7.27 L VBG pCO2 68 VBG Oxygen Liters/Min TNP VBG pO2 53 VBG HCO3 31 VBG O2 Saturation 81.5 VBG Base Excess 1.8 Sodium 142 Potassium 3.7 Chloride 104 Carbon Dioxide 28 Anion Gap 14 BUN 22 H Creatinine 1.13 Estim Creat Clear Calc 113.9 Estimated GFR > 60 POC Glucose Random Glucose 114 Calcium 8.6 Phosphorus 3.2 Magnesium 2.0 Total Bilirubin 0.5 AST 61 H ALT 37 Alkaline Phosphatase 80 Total Protein 6.7 Albumin 3.6 01/10/20 01/10/20 05:25 10:52 WBC RBC Hgb Hct MCV MCH MCHC RDW Plt Count MPV Immature Gran % (Auto) Neut % (Auto) Lymph % (Auto) [place] % (Auto) Eos % (Auto) Baso % (Auto) Lymph # (Auto) [place] # (Auto) Eos # (Auto) Baso # (Auto) Abs Immat Gran (auto) Absolute Neuts (auto) Absolute Nucleated RBC Nucleated RBC % (auto) Smear Tech's Comments VBG pH 7.40 VBG pCO2 45 VBG Oxygen Liters/Min TNP VBG pO2 52 VBG HCO3 27 VBG O2 Saturation 84.3 VBG Base Excess 1.7 Sodium Potassium Chloride Carbon Dioxide Anion Gap BUN Creatinine Estim Creat Clear Calc Estimated GFR POC Glucose 136 H Random Glucose Calcium Phosphorus Magnesium Total Bilirubin AST ALT Alkaline Phosphatase Total Protein Albumin Microbiology Microbiology Results: Microbiology 01/09/20 05:42 Blood - Venous Blood Culture - Preliminary No growth after 24 hours. 01/09/20 05:43 Blood - Venous Blood Culture - Preliminary No growth after 24 hours. 01/08/20 14:55 Blood - Venous Blood Culture - Preliminary No growth after 24 hours. 01/08/20 13:45 Blood - Venous Blood Culture - Preliminary No growth after 24 hours. Progress Note: A&P Assessment and plan (1) Cocaine abuse: Status: Acute (2) Aspiration pneumonia: Status: Acute (3) Acute respiratory failure with hypoxia: Status: Acute (4) Cardiac arrest: Status: Acute Assessment and Plan: Assessment: 54-year-old gentleman with underlying history of obesity, MARY, substance abuse, heart failure admitted with out of hospital cardiac arrest with unclear down time with returned spontaneous circulation after approximately 5 minutes of cardiopulmonary resuscitation, intubated during the CPR. Plan: Neuro: PEA arrest with unclear down time, patient moving all 4 extremities after arrest. No return to consciousness with sedation vacation today, will repeat in a.m, if no improvement will obtain MRI brain. Cardiac: PEA cardiac arrest, with underlying cocaine intoxication, underlying history of systolic heart failure. 2D echocardiogram without evidence of acute cardiomyopathy. Started on IV diuresis. Pulmonary: Acute hypoxic respiratory failure, intubated during the CPR. Continue ventilatory support. Also, now with aspiration pneumonia Likely as a sequela of aspirating during cardiac arrest. Renal: Non oliguric. Continue to monitor renal indices and urine output. Endo: No acute issues. GI: No acute issues. ID: Aspiration pneumonia covered with Levaquin secondary to penicillin allergy. Heme/Onc: No acute issues. Psych: No acute issues. Miscellaneous: No acute issues. Prophylaxis: Heparin, famotidine Diet: Tube feeds Critical care time spent: 60 minutes Time Spent With Patient Total time spent with greater than 50% in coordination of care (as documented) at patient's floor/unit and/or counseling patient:: 0 Critical Care Time Critical Care Time (minutes): 60
[2020-01-10 17:58] LABS: Glucose, Whole Blood 123 mg/dL (60-115)
[2020-01-10 19:05] LABS: Anion Gap 13 (12-20); Blood Urea Nitrogen 21 mg/dL (9-16); Calcium 8.5 mg/dL (8.4-10.2); Carbon Dioxide 32 mmol/L (22-29); Chloride 101 mmol/L (96-108); Creatinine Clr Calc Pharmacy 111.9; Estimated Glomerular Filt Rate > 60; Glucose Random 113 mg/dL (60-115); Potassium 3.8 mmol/l (3.3-5.1); Sodium 142 mmol/L (135-145)
--- NOTE | 2020-01-10 20:21 | MHC.PIE ---
p pt overdriving vent/belly breathing/sats dropping to 90/tv 300 i suctioned for large amt thick sputum/chest pt done/ e with little improvement in the amt of secretions i med with 2mg versed e with some effect
[2020-01-10] MEDS: Famotidine/PF 20 MG/2 ML VIAL IVPUSH ×2 (20:51)
[2020-01-10] MEDS: Acetaminophen Oral Liquid 650 MG/20.3 ML SOLUTION PO (20:52)
[2020-01-10] MEDS: Chlorhexidine Gluc Oral Rinse 15 ML MOUTHWASH BUCCAL ×3 (20:53→20:58)
[2020-01-10 23:37] LABS: Glucose, Whole Blood 136 mg/dL (60-115)
[2020-01-11] VITALS (28 sets, daily range): BP systolic 116–169; BP diastolic 51–100; PULSE 96–110; RESP 30–45; TEMP 39.4–40.1; O2SAT 88–98; BMI 44.8
--- NOTE | 2020-01-11 | MR_ITS ---
EXAMINATION: MR BRAIN WITHOUT CONTRAST CLINICAL INFORMATION: Altered mental status after CPR. Anoxic brain injury. COMPARISON: CT head from 01/08/2020. TECHNIQUE: MRI of the brain was obtained using routine sequences without contrast. FINDINGS: Extensive, symmetric cortically based restricted diffusion involving the frontal parietal, occipital, and temporal lobes as well as the entirety of the deep nuclei. Associated evolving cortical edema throughout this distribution. No evidence of acute or chronic hemorrhagic products on heme-sensitive imaging. Early effacement of the regional sulci and lateral ventricles. No evidence of hydrocephalus. No midline shift. No extra-axial fluid collection. Partial effacement of the suprasellar cistern. No downward transtentorial herniation. Normal appearance of the pituitary gland. The cerebellar tonsils are positioned at the level the foramen magnum. Normal arterial and venous vascular flow voids are present. Normal, homogeneous marrow signal. The patient is intubated. Layering fluid within the pharynx, presumably related to intubation. Moderate mucosal thickening of the paranasal sinuses. Bilateral mastoid effusions. IMPRESSION: Findings of diffuse anoxic brain injury with extensive involvement of the bilateral frontoparietal, occipital, and temporal lobes as well as the deep nuclei. Early evolving cerebral edema with regional sulcal and lateral ventricle effacement. Partial effacement of the suprasellar cistern without overt transtentorial herniation. The cerebellar tonsils are positioned at the level of the foramen magnum without overt tonsillar herniation or brainstem compression at this time.
[2020-01-11] MEDS: propofoL 1,000 MG/100 ML VIAL 45.39 MG IVCONT ×9 (01:54→19:38)
[2020-01-11] MEDS: fentaNYL citrate/NS 1,000 MCG/100 ML PLAST..BAG 20 MCG IVCONT ×4 (01:55→16:21)
[2020-01-11] MEDS: Acetaminophen Oral Liquid 650 MG/20.3 ML SOLUTION OG-TUBE ×2 (05:30→14:12)
[2020-01-11 05:41] LABS: Glucose, Whole Blood 115 mg/dL (60-115)
--- NOTE | 2020-01-11 05:56 | PC.NURSE ---
CARE ASSUMED 23;15...REMAINS TUBED/VENTED VCV/AC MODE...[id number]...ETCO2 35-38...PROPOFOL 50 MCG/KG/MIN & FENTANYL 200 MCG/HR..(+) GAG/COUGH REFLEXES..EXTREMETIES FLACCID..NO WITHDRAWL TO PAIN...TRANSIENT VENT DYSYNCHRONY WITH CARE AND CHEST PT...PUPILS 4MM AND SLUGGISH..REMAINS FEBRILE.........T-MAX 104.2 THIS AM...ICU PA PRESENT...PRN TYLENOL 650MG VIA 0G-TUBE FOR ELEVATED TEMP...BLOODY DRAINAGE FROM RIGHT NARE PER SHIFT REPORT HAS CEASED...4AM FREEMAN WITH DECREASED DRAINAGE...LEAKING URINE AROUND CATHETER...FREEMAN D/C'D INTACT AND NEW #16 [place] FREEMAN INSERTED...CHEST PT X2 OVERNIGHT WITH ONLY MARGINAL SPUTUM OBTAINED..REMAINS S.TACH HR 104-110
[2020-01-11 06:06] LABS: Basophils Percent Auto 0.1 % (0-2); Hematocrit 41.5 % (42-52); Hemoglobin 13.1 g/dl (14.0-18.0); Imm Gran Abs Auto 0.03 X10*3/uL (0.00-0.03); Imm Gran Pct Auto 0.4 % (0.0-0.4); Lymphocytes Absolute Auto 0.4 X10*3/uL (1.2-4.9); Lymphocytes Percent Auto 5.6 % (20-40); MANUAL DIFF FLAG SCAN; Mean Corpuscular HGB Conc 31.6 g/dl (31.0-36.0); Mean Corpuscular Hemoglobin 31.8 pg (27.0-33.0); Mean Corpuscular Volume 100.7 fL (80-98); Monocytes Absolute Auto 0.5 X10*3/uL (0.1-1.2); Monocytes Percent Auto 6.6 % (2-11); Neutrophils Absolute Auto 6.7 X10*3/uL (2.0-8.3); Neutrophils Percent Auto 87.3 % (45-73); Platelet Count 141 X10*3/uL (160-400); Red Blood Count 4.12 X10*6/uL (4.60-5.80); Red Cell Distribution Width 15.2 % (11.0-16.0); SCAN SMEAR FLAG 1; White Blood Count 7.7 X10*3/uL (4.8-10.8)
[2020-01-11 06:19] LABS: Base Excess VBG 5.1 mmol/L; HCO3 VBG 31 mmol/L; PCO2 VBG 53 mmhg; PO2 VBG 39 mmhg; pH VBG 7.39 (7.32-7.43)
[2020-01-11 06:20] LABS: Blood Gas Serial # 5396; Oxygen Saturation VBG 71.7 %
[2020-01-11 06:42] LABS: Albumin Level 3.5 g/dL (3.5-5.0); Anion Gap 13 (12-20); Blood Urea Nitrogen 23 mg/dL (9-16); Calcium 8.6 mg/dL (8.4-10.2); Carbon Dioxide 33 mmol/L (22-29); Chloride 100 mmol/L (96-108); Creatinine Clr Calc Pharmacy 107.8; Estimated Glomerular Filt Rate > 60; Glucose Random 112 mg/dL (60-115); Magnesium 2.2 mg/dL (1.6-2.6); Phosphorus 3.1 mg/dL (2.7-4.5); Potassium 3.8 mmol/l (3.3-5.1); Sodium 142 mmol/L (135-145)
[2020-01-11] MEDS: 0.9 % Sodium Chloride Flush 3 ML SYRINGE IVFLUSH ×3 (07:48→23:33)
[2020-01-11] MEDS: Heparin Sodium,Porcine 5,000 UNIT/ML VIAL 5000 UNIT SUBCUT ×3 (07:49→23:32)
[2020-01-11] MEDS: Famotidine/PF 20 MG/2 ML VIAL IVPUSH ×2 (07:51→21:34)
[2020-01-11 07:53] LABS: SLIDE REVIEW VERIFIED
[2020-01-11] MEDS: levoFLOXacin/D5W 750 MG/150 ML PIGGYBACK 200 MG IV (08:22)
[2020-01-11] MEDS: Furosemide 40 MG/4 ML VIAL IVPUSH (08:36)
--- NOTE | 2020-01-11 09:38 | MHC.CM.PN ---
pt remains in the icu, intubated , sedated and on mech. ventilator. dc plan is deferred at this time. cm to cont. to follow.
--- NOTE | 2020-01-11 10:15 | PC.NURSE ---
Sedation vacation initiated at 09:30 am, propofol and fentanyl turned off. At approx 10:10 am, patient became tachypneic with a RR of 45, hypertensive with a BP of 169/84. Patient with eyes slightly open and fixated upward, pupils 3 mm, equal and reactive. All extremities flaccid, patient unrestrained. No response to painful stimuli. Left thigh noted to be twitching. MD notified. Sedation restarted at 10:15 am per MD. Plan for MRI today. Family updated on plan of care.
--- NOTE | 2020-01-11 10:27 | MHC.CLN ---
f/u pt tolerating tf promote at 30cc/hr with 300cc free water q 6 hrs provides 720kcals (1908kcals with sedation (24kcals/kg based on IBW), 45g protein (.5g/kg), 1804cc total water from formula and flushes monitor tolerance, residuals & lytes following
[2020-01-11 12:30] LABS: Glucose, Whole Blood 114 mg/dL (60-115)
--- NOTE | 2020-01-11 15:15 | P.PNCC_ITS ---
Subjective Subjective Date of Service: 01/11/20 Interval History: 54-year-old gentleman with underlying history of morbid obesity, obstructive sleep apnea, polysubstance abuse, congestive heart failure, brought in by EMS after he was noted to be short of breath and cyanotic at local grocery store. Patient likely with PEA cardiac arrest in transit or at arrival to ER. CPR started with return of spontaneous circulation after approximately 5 minutes, intubated during the CPR. Patient moving all 4 extremities after CPR requiring sedation while on ventilatory support. EKG without evidence of acute ST abnormality. Admitted to intensive care unit. No events overnight. No awakening with sedation vacation this a.m. Physical Exam Vital Signs: Vital Signs: Vital Signs Temp Pulse Resp BP Pulse Ox 01/11/20 14:00 104.0 F H 109 H 37 H 145/90 H 95 01/11/20 13:00 104.0 F H 109 H 39 H 146/82 H 95 01/11/20 12:00 104 F H 109 H 40 H 134/83 95 01/11/20 11:00 103.6 F H 106 H 41 H 116/66 97 01/11/20 10:00 103.3 F H 103 H 45 H 169/84 H 98 01/11/20 09:00 103.1 F H 102 H 39 H 118/51 L 96 01/11/20 08:00 103.3 F H 99 39 H 125/67 94 01/11/20 07:00 103.8 F H 105 H 40 H 145/83 H 97 01/11/20 06:00 104.2 F H 106 H 40 H 160/83 H 97 01/11/20 05:00 104.2 F H 106 H 40 H 165/96 H 96 01/11/20 04:00 103.8 F H 108 H 36 H 146/85 H 97 01/11/20 03:00 103.8 F H 108 H 36 H 154/84 H 96 01/11/20 02:00 103.6 F H 110 H 36 H 156/87 H 96 01/11/20 00:53 103.5 F H 108 H 38 H 162/88 H 95 01/10/20 23:59 103.5 F H 108 H 38 H 162/94 H 95 01/10/20 22:49 103.5 F H 107 H 38 H 180/97 H 94 01/10/20 21:59 103.6 F H 112 H 44 H 174/95 H 95 01/10/20 21:03 104 F H 112 H 34 H 182/104 H 92 01/10/20 20:00 103.5 F H 108 H 34 H 164/99 H 91 L 01/10/20 18:55 102.6 F H 104 H 38 H 157/98 H 01/10/20 18:00 102.2 F H 91 34 H 143/81 H 95 01/10/20 16:53 92 32 H 133/74 95 01/10/20 16:00 101.8 F H 94 33 H 138/75 95 Body Mass Index 44.8 Const: General: no acute distress and other ( sedated on the vent) Nutritional Appearance: obese Eyes: Sclerae: sclerae normal EOM: EOMs intact bilaterally Neck: Neck: Yes no lymphadenopathy, Yes trachea midline and Yes supple Resp: Effort & Inspection: normal respiratory effort and no respiratory distress Auscultation: clear to auscultation bilaterally Cardio: Rate: regular rate Rhythm: regular rhythm Heart sounds: no gallops, no murmurs and no rubs GI: Palpation (GI): Soft to palpation and Other GI palpation findings present ( Nontender) Auscultation: normal bowel sounds Extrem: General: No clubbing, No cyanosis and Yes edema ( 1+ bilateral) Objective Data Labs CBC & Chem 7: 01/11/20 05:44 01/11/20 05:44 Labs: Laboratory Results - last 24 hr 01/10/20 01/10/20 01/10/20 17:53 18:02 23:33 WBC RBC Hgb Hct MCV MCH MCHC RDW Plt Count MPV Immature Gran % (Auto) Neut % (Auto) Lymph % (Auto) [place] % (Auto) Eos % (Auto) Baso % (Auto) Lymph # (Auto) [place] # (Auto) Eos # (Auto) Baso # (Auto) Abs Immat Gran (auto) Absolute Neuts (auto) Absolute Nucleated RBC Nucleated RBC % (auto) Smear Tech's Comments VBG pH VBG pCO2 VBG Oxygen Liters/Min VBG pO2 VBG HCO3 VBG O2 Saturation VBG Base Excess Sodium 142 Potassium 3.8 Chloride 101 Carbon Dioxide 32 H Anion Gap 13 BUN 21 H Creatinine 1.15 Estim Creat Clear Calc 111.9 Estimated GFR > 60 POC Glucose 123 H 136 H Random Glucose 113 Calcium 8.5 Phosphorus Magnesium Albumin 01/11/20 01/11/20 01/11/20 05:37 05:44 05:44 WBC 7.7 RBC 4.12 L Hgb 13.1 L Hct 41.5 L MCV 100.7 H MCH 31.8 MCHC 31.6 RDW 15.2 Plt Count 141 L MPV 12.0 Immature Gran % (Auto) 0.4 Neut % (Auto) 87.3 H Lymph % (Auto) 5.6 L [place] % (Auto) 6.6 Eos % (Auto) 0.0 Baso % (Auto) 0.1 Lymph # (Auto) 0.4 L [place] # (Auto) 0.5 Eos # (Auto) 0.0 Baso # (Auto) 0.0 Abs Immat Gran (auto) 0.03 Absolute Neuts (auto) 6.7 Absolute Nucleated RBC 0.000 Nucleated RBC % (auto) 0.0 Smear Tech's Comments VERIFIED VBG pH VBG pCO2 VBG Oxygen Liters/Min VBG pO2 VBG HCO3 VBG O2 Saturation VBG Base Excess Sodium 142 Potassium 3.8 Chloride 100 Carbon Dioxide 33 H Anion Gap 13 BUN 23 H Creatinine 1.18 Estim Creat Clear Calc 107.8 Estimated GFR > 60 POC Glucose 115 Random Glucose 112 Calcium 8.6 Phosphorus 3.1 Magnesium 2.2 Albumin 3.5 01/11/20 01/11/20 05:44 12:24 WBC RBC Hgb Hct MCV MCH MCHC RDW Plt Count MPV Immature Gran % (Auto) Neut % (Auto) Lymph % (Auto) [place] % (Auto) Eos % (Auto) Baso % (Auto) Lymph # (Auto) [place] # (Auto) Eos # (Auto) Baso # (Auto) Abs Immat Gran (auto) Absolute Neuts (auto) Absolute Nucleated RBC Nucleated RBC % (auto) Smear Tech's Comments VBG pH 7.39 VBG pCO2 53 VBG Oxygen Liters/Min Not Reportable VBG pO2 39 VBG HCO3 31 VBG O2 Saturation 71.7 VBG Base Excess 5.1 Sodium Potassium Chloride Carbon Dioxide Anion Gap BUN Creatinine Estim Creat Clear Calc Estimated GFR POC Glucose 114 Random Glucose Calcium Phosphorus Magnesium Albumin Microbiology Microbiology Results: Microbiology 01/09/20 05:42 Blood - Venous Blood Culture - Preliminary No growth after 48 hours. 01/09/20 05:43 Blood - Venous Blood Culture - Preliminary No growth after 48 hours. 01/08/20 14:55 Blood - Venous Blood Culture - Preliminary No growth after 48 hours. 01/08/20 13:45 Blood - Venous Blood Culture - Preliminary No growth after 48 hours. Progress Note: A&P Assessment and plan (1) Cocaine abuse: Status: Acute (2) Aspiration pneumonia: Status: Acute (3) Acute respiratory failure with hypoxia: Status: Acute (4) Cardiac arrest: Status: Acute Assessment and Plan: Assessment: 54-year-old gentleman with underlying history of obesity, MARY, substance abuse, heart failure admitted with out of hospital cardiac arrest with unclear down time with returned spontaneous circulation after approximately 5 minutes of cardiopulmonary resuscitation, intubated during the CPR. Plan: Neuro: PEA arrest with unclear down time, patient moving all 4 extremities after arrest. No return to consciousness with sedation vacation today, will repeat in a.m, scheduled for MRI brain. Cardiac: PEA cardiac arrest, with underlying cocaine intoxication, underlying history of systolic heart failure. 2D echocardiogram without evidence of acute cardiomyopathy. Started on IV diuresis. Pulmonary: Acute hypoxic respiratory failure, intubated during the CPR. Continue ventilatory support. Aspiration pneumonia, likely as a sequela of aspirating during cardiac arrest. Renal: Non oliguric. Continue to monitor renal indices and urine output. Endo: No acute issues. GI: No acute issues. ID: Aspiration pneumonia covered with Levaquin secondary to penicillin allergy. Heme/Onc: No acute issues. Psych: No acute issues. Miscellaneous: No acute issues. Prophylaxis: Heparin, famotidine Diet: Tube feeds Critical care time spent: 60 minutes Time Spent With Patient Total time spent with greater than 50% in coordination of care (as documented) at patient's floor/unit and/or counseling patient:: 0 Critical Care Time Critical Care Time (minutes): 60
[2020-01-11 18:18] LABS: Glucose, Whole Blood 107 mg/dL (60-115)
[2020-01-11 18:46] LABS: Anion Gap 12 (12-20); Blood Urea Nitrogen 26 mg/dL (9-16); Calcium 8.2 mg/dL (8.4-10.2); Carbon Dioxide 34 mmol/L (22-29); Chloride 98 mmol/L (96-108); Creatinine Clr Calc Pharmacy 103.4; Estimated Glomerular Filt Rate > 60; Glucose Random 101 mg/dL (60-115); Potassium 3.7 mmol/l (3.3-5.1); Sodium 140 mmol/L (135-145)
--- NOTE | 2020-01-11 19:24 | PC.NURSE ---
Addendum entered by Dolores Davila RN 01/11/20 19:34: MRI resulted- md discussed- md calling family, updated of results, plan to have family meeting in am with family about prognostics and next step in plan of care for patient; Original Note: assumed are at 1500; pt remains sedate and intubated with 7.5 et tube at 25 cm lip line on ac settings; on propofol and fentanyl gtts; tube feeds restarted of promote at 30 mls/hr;
--- NOTE | 2020-01-11 19:35 | PC.NURSE ---
[employer] REFERAL NUMBER [id number]- SPOKE WITH MELLO Lawton AT [facility] FOR INITIAL REFERRAL
[2020-01-11] MEDS: Albuterol Sulfate (0.083%) 2.5 MG/3 ML VIAL.NEB INHALE ×2 (19:39→23:59)
[2020-01-11] MEDS: Chlorhexidine Gluc Oral Rinse 15 ML MOUTHWASH BUCCAL (21:34)
[2020-01-11] MEDS: fentaNYL citrate/NS 1,000 MCG/100 ML PLAST..BAG 10 MCG IVCONT (22:05)
[2020-01-11] MEDS: propofoL 1,000 MG/100 ML VIAL 36.31 MG IVCONT (22:37)
[2020-01-11 23:44] LABS: Glucose, Whole Blood 93 mg/dL (60-115)
[2020-01-12] VITALS (42 sets, daily range): BP systolic 95–171; BP diastolic 37–91; PULSE 33–194; RESP 18–41; TEMP 32.7–40.2; O2SAT 87–96; BMI 44.1
[2020-01-12] MEDS: propofoL 1,000 MG/100 ML VIAL 36.31 MG IVCONT ×3 (01:16→06:43)
[2020-01-12] MEDS: Adenosine 6 MG/2 ML VIAL 12 MG IVPUSH (03:59)
[2020-01-12] MEDS: Metoprolol Tartrate 5 MG in 0.9 % Sodium Chloride 50 ML 200 MG IV ×2 (04:17→05:29)
[2020-01-12] MEDS: fentaNYL citrate/NS 1,000 MCG/100 ML PLAST..BAG 15 MCG IVCONT (05:32)
[2020-01-12 05:54] LABS: Basophils Percent Auto 0.2 % (0-2); Hematocrit 41.4 % (42-52); Hemoglobin 12.7 g/dl (14.0-18.0); Imm Gran Abs Auto 0.01 X10*3/uL (0.00-0.03); Imm Gran Pct Auto 0.2 % (0.0-0.4); Lymphocytes Absolute Auto 0.4 X10*3/uL (1.2-4.9); MANUAL DIFF FLAG SCAN; Mean Corpuscular HGB Conc 30.7 g/dl (31.0-36.0); Mean Corpuscular Hemoglobin 31.2 pg (27.0-33.0); Mean Corpuscular Volume 101.7 fL (80-98); Mean Platelet Volume 12.4 fL (9.4-12.4); Monocytes Absolute Auto 0.4 X10*3/uL (0.1-1.2); Monocytes Percent Auto 6.1 % (2-11); Neutrophils Absolute Auto 5.2 X10*3/uL (2.0-8.3); Neutrophils Percent Auto 86.5 % (45-73); Platelet Count 130 X10*3/uL (160-400); Red Blood Count 4.07 X10*6/uL (4.60-5.80); Red Cell Distribution Width 15.3 % (11.0-16.0); SCAN SMEAR FLAG 1
[2020-01-12 05:59] LABS: Base Excess VBG 4.7 mmol/L; HCO3 VBG 32 mmol/L; PCO2 VBG 58 mmhg; PO2 VBG 34 mmhg; pH VBG 7.36 (7.32-7.43)
[2020-01-12 06:13] LABS: SLIDE REVIEW VERIFIED
[2020-01-12 06:21] LABS: Glucose, Whole Blood 109 mg/dL (60-115)
[2020-01-12 06:24] LABS: Albumin Level 3.3 g/dL (3.5-5.0); Anion Gap 14 (12-20); Blood Urea Nitrogen 34 mg/dL (9-16); Calcium 8.1 mg/dL (8.4-10.2); Carbon Dioxide 29 mmol/L (22-29); Chloride 100 mmol/L (96-108); Creatinine Clr Calc Pharmacy 90.9; Estimated Glomerular Filt Rate 53; Glucose Random 113 mg/dL (60-115); Magnesium 2.6 mg/dL (1.6-2.6); Phosphorus 4.3 mg/dL (2.7-4.5); Potassium 4.2 mmol/l (3.3-5.1); Sodium 139 mmol/L (135-145)
--- NOTE | 2020-01-12 07:17 | PC.NURSE ---
Patient with O2 sats in the 80s at the beginning of shift; vent setting changes; tidal volume 500 and fiO2 90%. Patient with increased core temp; max 104.1; Renato Mccartney NP aware. Patient went into SVT at 0354; 6 mg adenosine administered followed by 12mg adenosine (see MAR and VS). 5mg lopressor administered at 0417; with another 5mg lopressor administered at 0529 (see MAR and VS). Renato Mccartney NP at bedside during all medication administrations.
[2020-01-12] MEDS: Albuterol Sulfate (0.083%) 2.5 MG/3 ML VIAL.NEB INHALE ×4 (07:55→19:38)
[2020-01-12] MEDS: Chlorhexidine Gluc Oral Rinse 15 ML MOUTHWASH BUCCAL ×3 (08:14→21:17)
[2020-01-12] MEDS: 0.9 % Sodium Chloride Flush 3 ML SYRINGE IVFLUSH ×2 (08:14→18:15)
[2020-01-12] MEDS: Famotidine/PF 20 MG/2 ML VIAL IVPUSH ×2 (08:14→21:17)
[2020-01-12] MEDS: levoFLOXacin/D5W 750 MG/150 ML PIGGYBACK 100 MG IV (08:17)
[2020-01-12] MEDS: Heparin Sodium,Porcine 5,000 UNIT/ML VIAL 5000 UNIT SUBCUT ×2 (08:22→18:14)
[2020-01-12] MEDS: Esmolol HCl/NaCl Iso 2,500 MG/250 ML IV.SOLN 44.25 MG IVCONT ×2 (08:40→12:54)
[2020-01-12] MEDS: propofoL 1,000 MG/100 ML VIAL 18.16 MG IVCONT ×3 (09:43→20:04)
--- NOTE | 2020-01-12 09:50 | PC.NURSE ---
START OF SHIFT PT IN AND OUT OF SVT 180-190S LASTING 2 MINUTES AND PT RHYTHM BACK TO , ARTIAL BIGEMMENY, BP STABLE- DR MARTINEZ MADE AWARE; ESMOLOL GTT ORDERED, STARTED AT ~0947,8 BEAT VTACH NOTED WELL; ESMOLOL GTT STARTED AT 50 MCG/KG/HR; FENTANYL AND PROPOFOL GTT REAMAIN RUNNING, ADJUSTING NEEDED FOR VENT/BP CONTROL; FAMILY PLAN TO COME IN AT NOON FOR MEETING, NEOB UPDATED OF PLAN WITH FAMILY; LUNG SOUNDS COARSE ON RIGHT SIDE, EXPIRATORY WHEEZES NOTED THROUGHOUT, DIMINISHED, CPT DONE THIS AM, TURNING AND REPOSITIONING Q2H; TF REMAIN RUNNING AT 30 MLS/HR; FREEMAN IN PLACE; AIRLOSS BED IN PLACE; TLC IN R GROIN D&I
--- NOTE | 2020-01-12 09:57 | PC.NURSE ---
PUPIL REACTION CHANGING FROM 3 MM PINPOINT TO 6 MM RIGHT EYE AND 3 MM LEFT EYE FIXED, MYOCLONIC MOVEMOVENT IN BILATERAL TOES, MD AWARE- VENT AC RATE INCREASED TO 30
[2020-01-12 11:38] LABS: Glucose, Whole Blood 130 mg/dL (60-115)
--- NOTE | 2020-01-12 13:28 | PC.NURSE ---
FAMILY WISHES TO KEEP PATIENT FULL CODE AT THIS TIME, NEOB AWARE AND LEFT; FAMILY AT BEDSIDE INTERMITTENTLY THROUGHOUT THE DAY DYSCONJUGATE GAZE NOTED, PUPILS SMALLER, MD AWARE
--- NOTE | 2020-01-12 13:54 | P.PNCC_ITS ---
Subjective Subjective Date of Service: 01/12/20 Interval History: 54-year-old gentleman with underlying history of morbid obesity, obstructive sleep apnea, polysubstance abuse, congestive heart failure, brought in by EMS after he was noted to be short of breath and cyanotic at local grocery store. Patient likely with PEA cardiac arrest in transit or at arrival to ER. CPR started with return of spontaneous circulation after approximately 5 minutes, intubated during the CPR. Patient moving all 4 extremities after CPR requiring sedation while on ventilatory support. EKG without evidence of acute ST abnormality. Admitted to intensive care unit. patient with no awakening with sedation vacation. MRI brain performed on 01/11/2020 - significant anoxic injury. Early clinical signs of herniation overnight - myoclonus of toes and disconjugate gaze. Physical Exam Vital Signs: Vital Signs: Vital Signs Temp Pulse Resp BP Pulse Ox 01/12/20 13:00 103.6 F H 92 35 H 121/61 90 L 01/12/20 11:59 104 F H 92 35 H 121/69 90 L 01/12/20 11:00 104.2 F H 40 H 154/83 H 91 L 01/12/20 09:58 104.2 F H 83 34 H 171/91 H 93 01/12/20 08:52 104.2 F H 97 30 H 105/55 L 89 L 01/12/20 08:00 104.4 F H 99 35 H 107/62 88 L 01/12/20 07:00 104.2 F H 106 H 35 H 95/37 L 87 L 01/12/20 06:13 103 H 33 H 121/63 90 L 01/12/20 05:36 94 33 H 127/67 89 L 01/12/20 05:29 181 H 110/42 L 01/12/20 05:03 102 H 33 H 131/73 90 L 01/12/20 04:35 101 H 32 H 122/68 90 L 01/12/20 04:18 104 H 113/62 01/12/20 04:17 106 H 01/12/20 04:00 104.1 F H 105 H 31 H 116/53 L 91 L 01/12/20 03:59 184 H 109/44 L 01/12/20 03:56 194 H 125/70 01/12/20 03:10 104 F H 103 H 33 H 134/65 92 10/17/20 02:12 103.8 F H 104 H 31 H 134/67 91 L 01/12/20 01:08 103 H 32 H 126/70 91 L 01/12/20 00:07 103.6 F H 107 H 35 H 159/75 H 91 L 01/11/20 23:14 103.5 F H 108 H 34 H 142/86 H 89 L 01/11/20 22:10 105 H 33 H 153/85 H 89 L 01/11/20 21:11 102 H 31 H 124/82 90 L 01/11/20 20:06 103.3 F H 97 30 H 130/73 88 L 01/11/20 19:14 103.3 F H 97 38 H 140/76 H 88 L 01/11/20 18:00 103.1 F H 96 36 H 160/85 H 92 01/11/20 16:52 102.9 F H 97 36 H 157/86 H 92 01/11/20 16:00 103.3 F H 104 H 37 H 161/91 H 93 01/11/20 14:00 104.0 F H 109 H 37 H 145/90 H 95 Body Mass Index 44.1 Const: General: no acute distress Eyes: Other: dysconjugate gaze Sclerae: sclerae normal Neck: Neck: Yes no lymphadenopathy, Yes trachea midline and Yes supple Resp: Effort & Inspection: normal respiratory effort and no respiratory dist ress Auscultation: clear to auscultation bilaterally Cardio: Rate: regular rate Rhythm: regular rhythm Heart sounds: no gallops, no murmurs and no rubs GI: Palpation (GI): Soft to palpation and Other GI palpation findings present ( Nontender) Auscultation: normal bowel sounds Extrem: General: No clubbing, No cyanosis and Yes edema ( 1+ bilateral) Objective Data Labs CBC & Chem 7: 01/12/20 05:38 01/12/20 05:38 Labs: Laboratory Results - last 24 hr 01/11/20 01/11/20 01/11/20 18:07 18:14 23:25 WBC RBC Hgb Hct MCV MCH MCHC RDW Plt Count MPV Immature Gran % (Auto) Neut % (Auto) Lymph % (Auto) [place] % (Auto) Eos % (Auto) Baso % (Auto) Lymph # (Auto) [place] # (Auto) Eos # (Auto) Baso # (Auto) Abs Immat Gran (auto) Absolute Neuts (auto) Absolute Nucleated RBC Nucleated RBC % (auto) Smear Tech's Comments VBG pH VBG pCO2 VBG Oxygen Liters/Min VBG pO2 VBG HCO3 VBG O2 Saturation VBG Base Excess Sodium 140 Potassium 3.7 Chloride 98 Carbon Dioxide 34 H Anion Gap 12 BUN 26 H Creatinine 1.23 Estim Creat Clear Calc 103.4 Estimated GFR > 60 POC Glucose 107 93 Random Glucose 101 Calcium 8.2 L Phosphorus Magnesium Albumin 01/12/20 01/12/20 01/12/20 05:38 05:38 05:38 WBC 6.0 RBC 4.07 L Hgb 12.7 L Hct 41.4 L MCV 101.7 H MCH 31.2 MCHC 30.7 L RDW 15.3 Plt Count 130 L MPV 12.4 Immature Gran % (Auto) 0.2 Neut % (Auto) 86.5 H Lymph % (Auto) 7.0 L [place] % (Auto) 6.1 Eos % (Auto) 0.0 Baso % (Auto) 0.2 Lymph # (Auto) 0.4 L [place] # (Auto) 0.4 Eos # (Auto) 0.0 Baso # (Auto) 0.0 Abs Immat Gran (auto) 0.01 Absolute Neuts (auto) 5.2 Absolute Nucleated RBC 0.000 Nucleated RBC % (auto) 0.0 Smear Tech's Comments VERIFIED VBG pH 7.36 VBG pCO2 58 VBG Oxygen Liters/Min TNP VBG pO2 34 VBG HCO3 32 VBG O2 Saturation 60.0 VBG Base Excess 4.7 Sodium 139 Potassium 4.2 Chloride 100 Carbon Dioxide 29 Anion Gap 14 BUN 34 H Creatinine 1.40 Estim Creat Clear Calc 90.9 Estimated GFR 53 POC Glucose Random Glucose 113 Calcium 8.1 L Phosphorus 4.3 Magnesium 2.6 Albumin 3.3 L 01/12/20 01/12/20 06:16 11:35 WBC RBC Hgb Hct MCV MCH MCHC RDW Plt Count MPV Immature Gran % (Auto) Neut % (Auto) Lymph % (Auto) [place] % (Auto) Eos % (Auto) Baso % (Auto) Lymph # (Auto) [place] # (Auto) Eos # (Auto) Baso # (Auto) Abs Immat Gran (auto) Absolute Neuts (auto) Absolute Nucleated RBC Nucleated RBC % (auto) Smear Tech's Comments VBG pH VBG pCO2 VBG Oxygen Liters/Min VBG pO2 VBG HCO3 VBG O2 Saturation VBG Base Excess Sodium Potassium Chloride Carbon Dioxide Anion Gap BUN Creatinine Estim Creat Clear Calc Estimated GFR POC Glucose 109 130 H Random Glucose Calcium Phosphorus Magnesium Albumin Microbiology Microbiology Results: Microbiology 01/09/20 05:42 Blood - Venous Blood Culture - Preliminary No growth after 48 hours. 01/09/20 05:43 Blood - Venous Blood Culture - Preliminary No growth after 48 hours. 01/08/20 14:55 Blood - Venous Blood Culture - Preliminary No growth after 48 hours. 01/08/20 13:45 Blood - Venous Blood Culture - Preliminary No growth after 48 hours. Progress Note: A&P Assessment and plan (1) Cocaine abuse: Status: Acute (2) Aspiration pneumonia: Status: Acute (3) Acute respiratory failure with hypoxia: Status: Acute (4) Cardiac arrest: Status: Acute (5) Anoxic brain injury: Status: Acute Assessment and Plan: Assessment: 54-year-old gentleman with underlying history of obesity, MARY, substance abuse, heart failure admitted with out of hospital cardiac arrest with unclear down time with returned spontaneous circulation after approximately 5 minutes of cardiopulmonary resuscitation, intubated during the CPR. Plan: Neuro: PEA arrest with unclear down time, patient moving all 4 extremities after arrest. No return to consciousness with sedation vacation - MRI with significant anoxic injury. Cardiac: PEA cardiac arrest, with underlying cocaine intoxication, underlying history of systolic heart failure. 2D echocardiogram without evidence of acute cardiomyopathy. Pulmonary: Acute hypoxic respiratory failure, intubated during the CPR. Continue ventilatory support. Aspiration pneumonia, likely as a sequela of aspirating during cardiac arrest. Renal: Non oliguric. Continue to monitor renal indices and urine output. Endo: No acute issues. GI: No acute issues. ID: Aspiration pneumonia covered with Levaquin secondary to penicillin allergy. Heme/Onc: No acute issues. Psych: No acute issues. Miscellaneous: essentially no chance of neurologic recovery and likely impeding herniation explained to patient's family, who still want to proceed with full support at this time. Prophylaxis: Heparin, famotidine Diet: Tube feeds Critical care time spent: 90 minutes Time Spent With Patient Total time spent with greater than 50% in coordination of care (as documented) at patient's floor/unit and/or counseling patient:: 0 Critical Care Time Critical Care Time (minutes): 90
[2020-01-12] MEDS: fentaNYL citrate/NS 1,000 MCG/100 ML PLAST..BAG 10 MCG IVCONT (14:38)
[2020-01-12 18:13] LABS: Glucose, Whole Blood 121 mg/dL (60-115)
--- NOTE | 2020-01-12 18:31 | PC.NURSE ---
PT INCREASE PEAK PRESSURES- PT TRANSITIONED TO PCV- SEE WORKLIST FOR DETAILS
[2020-01-12] MEDS: fentaNYL citrate/NS 1,000 MCG/100 ML PLAST..BAG 12.5 MCG IVCONT (22:21)
--- NOTE | 2020-01-12 23:42 | PC.NURSE ---
pt experienced decreased sao2 88-89% and increased peak airway pressures as well as decreased vt 100 ml. pt lavaged and endotracheal suctioning performed. initial suctioning of large amounts of thick clear white sputum. 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 breath sounds coarse with scattered rhonchi throughout. pt positioned in high semifowlers. trevor from [facility] [employer] called for status report-[employer] to be notified if brain criteria declared or asystolic .
[2020-01-13] VITALS (35 sets, daily range): BP systolic 96–151; BP diastolic 46–84; PULSE 77–94; RESP 18–89; TEMP 38.2–38.8; O2SAT 83–97; BMI 44.1
[2020-01-13] MEDS: Albuterol Sulfate (0.083%) 2.5 MG/3 ML VIAL.NEB INHALE (00:20)
[2020-01-13 00:57] LABS: Glucose, Whole Blood 121 mg/dL (60-115)
[2020-01-13] MEDS: Heparin Sodium,Porcine 5,000 UNIT/ML VIAL 5000 UNIT SUBCUT ×4 (01:06→23:33)
[2020-01-13] MEDS: propofoL 1,000 MG/100 ML VIAL 18.16 MG IVCONT ×3 (01:07→17:00)
[2020-01-13] MEDS: 0.9 % Sodium Chloride Flush 3 ML SYRINGE IVFLUSH ×4 (01:09→23:33)
[2020-01-13] MEDS: fentaNYL citrate/NS 1,000 MCG/100 ML PLAST..BAG 20 MCG IVCONT (04:41)
[2020-01-13 05:37] LABS: Basophils Percent Auto 0.1 % (0-2); Hematocrit 42.8 % (42-52); Hemoglobin 13.3 g/dl (14.0-18.0); Imm Gran Abs Auto 0.02 X10*3/uL (0.00-0.03); Imm Gran Pct Auto 0.3 % (0.0-0.4); Lymphocytes Absolute Auto 0.3 X10*3/uL (1.2-4.9); Lymphocytes Percent Auto 3.9 % (20-40); MANUAL DIFF FLAG SCAN; Mean Corpuscular HGB Conc 31.1 g/dl (31.0-36.0); Mean Corpuscular Hemoglobin 31.7 pg (27.0-33.0); Mean Corpuscular Volume 102.1 fL (80-98); Mean Platelet Volume 12.2 fL (9.4-12.4); Monocytes Absolute Auto 0.4 X10*3/uL (0.1-1.2); Monocytes Percent Auto 5.2 % (2-11); Neutrophils Absolute Auto 6.1 X10*3/uL (2.0-8.3); Neutrophils Percent Auto 90.5 % (45-73); Platelet Count 132 X10*3/uL (160-400); Red Blood Count 4.19 X10*6/uL (4.60-5.80); Red Cell Distribution Width 15.2 % (11.0-16.0); SCAN SMEAR FLAG 1; White Blood Count 6.7 X10*3/uL (4.8-10.8)
[2020-01-13 05:44] LABS: Base Excess VBG -0.6 mmol/L; HCO3 VBG 28 mmol/L; Oxygen Saturation VBG 76.5 %; PCO2 VBG 66 mmhg; PO2 VBG 46 mmhg; pH VBG 7.25 (7.32-7.43)
[2020-01-13 06:07] LABS: SLIDE REVIEW VERIFIED
[2020-01-13 06:10] LABS: Alanine Aminotransferase 38 U/L (0-40); Albumin Level 3.3 g/dL (3.5-5.0); Alkaline Phosphatase 58 U/L (39-117); Anion Gap 15 (12-20); Aspartate Amino Transferase 123 U/L (5-37); Bilirubin Total 0.3 mg/dL (0.0-1.0); Blood Urea Nitrogen 64 mg/dL (9-16); Carbon Dioxide 30 mmol/L (22-29); Chloride 101 mmol/L (96-108); Creatinine Clr Calc Pharmacy 60.9; Estimated Glomerular Filt Rate 34; Glucose Random 123 mg/dL (60-115); Magnesium 3.2 mg/dL (1.6-2.6); Phosphorus 7.5 mg/dL (2.7-4.5); Potassium 4.5 mmol/l (3.3-5.1); Sodium 141 mmol/L (135-145); Total Protein 6.4 g/dL (6.5-8.0)
--- NOTE | 2020-01-13 06:44 | PC.NURSE ---
PT HAS HAD INTERMITTENT REFLEXES INVOLVING COUGH WITH ETT SUCTIONING. PUPILS FIXED AT 1MM-2MM OD IS SLIGHTLY LARGER THEN OS. PERIODICALLY A SELF LIMITING TWITCHING IS NOTED INVOLVING THE FEET. THE TWITCHING IS NONPURPOSEFUL AND IS MORE EVIDENT IN LEFT FOOT. RESP STATUS HAS BEEN TENUOUS. PT EXPERIENCE O2 DESATURATION WITH MINIMAL ACTIVITY. TURNING SIDE TO SIDE PT WILL DROP SAO2S INTO THE LOW 80S. PT HAS BEEN SUCTIONED VIA ETT FOR COPIOUS AMOUNTS OF LOOSE THIN WHITE SPUTUM. PT EXPELLED LARGE BROWN GLUE LIKE STOOL. ECG DISPLAYS SR WITH FREQUENT PACS. ATRIAL ECTOPY HAS BEEN INCREASING. TUBE FEEDINGS ON HOLD. U/O 100-120 ML/HR.
[2020-01-13] MEDS: Famotidine/PF 20 MG/2 ML VIAL IVPUSH ×2 (08:50→21:21)
[2020-01-13] MEDS: Chlorhexidine Gluc Oral Rinse 15 ML MOUTHWASH BUCCAL ×3 (08:50→21:21)
[2020-01-13] MEDS: levoFLOXacin/D5W 750 MG/150 ML PIGGYBACK 150 MG IV (09:01)
--- NOTE | 2020-01-13 11:37 | PM.CCPN ---
Subjective Subjective Date of Service: 01/13/20 Interval History: ICU day 5 for cocaine overdose, cardiac arrest, acute respiratory failure, and anoxic brain injury 54-year-old gentleman with underlying history of morbid obesity, obstructive sleep apnea, polysubstance abuse, congestive heart failure, asthma brought in by EMS on 01/08/2020 after he was noted to be short of breath and cyanotic at local grocery store. Patient likely with PEA cardiac arrest in transit or at arrival to ER. CPR started with return of spontaneous circulation after approximately 5 minutes, intubated during the CPR. Patient moving all 4 extremities after CPR requiring sedation while on ventilatory support. EKG without evidence of acute ST abnormality. Admitted to intensive care unit. patient with no awakening with sedation vacation. MRI brain performed on 01/11/2020 - significant anoxic injury. Essentially no chance for meaningful neurologic recovery discussed with patient's family on 01/12/2020, who still want patient to receive full support. Physical Exam Vital Signs: Vital Signs: Vital Signs Temp Pulse Resp BP Pulse Ox 01/13/20 11:00 101.1 F H 78 20 133/71 88 L 01/13/20 10:00 101.1 F H 79 20 143/76 H 89 L 01/13/20 09:00 101.3 F H 85 22 H 110/58 L 84 L 01/13/20 08:00 100.9 F H 83 30 H 111/56 L 92 01/13/20 07:00 100.8 F H 89 31 H 116/52 L 91 L 01/13/20 06:00 100.8 F H 91 32 H 112/46 L 01/13/20 05:00 101.1 F H 85 18 96/57 L 93 01/13/20 04:22 90 24 H 01/13/20 04:00 101.1 F H 84 18 102/60 94 01/13/20 03:00 101.3 F H 82 20 104/62 93 01/13/20 02:00 101.3 F H 80 20 112/52 L 90 L 01/13/20 01:00 101.5 F H 84 18 147/72 H 88 L 01/13/20 00:00 101.7 F H 88 39 H 135/72 89 L 01/12/20 22:54 91 F L 33 L 31 H 118/58 L 87 L 01/12/20 22:53 87 33 H 118/58 L 88 L 01/12/20 21:48 101.8 F H 95 34 H 159/63 H 94 01/12/20 21:00 102 F H 90 41 H 126/49 L 91 L 01/12/20 20:00 102 F H 92 30 H 123/66 91 L 01/12/20 18:55 102.2 F H 95 27 H 110/59 L 94 01/12/20 17:45 103.1 F H 95 34 H 100/47 L 96 01/12/20 17:00 103.1 F H 91 18 137/72 87 L 01/12/20 16:44 89 L 01/12/20 16:00 103.3 F H 89 35 H 110/56 L 88 L 01/12/20 15:00 103.3 F H 94 35 H 114/60 90 L 01/12/20 14:00 103.3 F H 88 35 H 107/56 L 91 L 01/12/20 13:00 103.6 F H 92 35 H 121/61 90 L 01/12/20 11:59 104 F H 92 35 H 121/69 90 L Body Mass Index 44.1 Const: General: no acute distress and other ( Tolerating ET tube without sedation) Nutritional Appearance: obese Orientation/consciousness: Other orientation findings ( no spontaneous or to painful stimuli movement of extremities) Eyes: Sclerae: sclerae normal Neck: Neck: Yes no lymphadenopathy, Yes trachea midline and Yes supple Resp: Auscultation: other ( bibasilar crackles) Cardio: Rate: regular rate Rhythm: regular rhythm and other Heart sounds: no gallops, no murmurs and no rubs GI: Palpation (GI): Soft to palpation and Other GI palpation findings present ( Nontender) Auscultation: normal bowel sounds Extrem: General: No clubbing, No cyanosis and Yes edema ( 1+ bilateral) Objective Data Labs CBC & Chem 7: 01/13/20 05:13 01/13/20 05:13 Labs: Laboratory Results - last 24 hr 01/12/20 01/12/20 01/13/20 11:35 18:10 00:53 WBC RBC Hgb Hct MCV MCH MCHC RDW Plt Count MPV Immature Gran % (Auto) Neut % (Auto) Lymph % (Auto) [place] % (Auto) Eos % (Auto) Baso % (Auto) Lymph # (Auto) [place] # (Auto) Eos # (Auto) Baso # (Auto) Abs Immat Gran (auto) Absolute Neuts (auto) Absolute Nucleated RBC Nucleated RBC % (auto) Smear Tech's Comments VBG pH VBG pCO2 VBG Oxygen Liters/Min VBG pO2 VBG HCO3 VBG O2 Saturation VBG Base Excess Sodium Potassium Chloride Carbon Dioxide Anion Gap BUN Creatinine Estim Creat Clear Calc Estimated GFR POC Glucose 130 H 121 H 121 H Random Glucose Calcium Phosphorus Magnesium Total Bilirubin AST ALT Alkaline Phosphatase Total Protein Albumin 01/13/20 01/13/20 01/13/20 05:13 05:13 05:13 WBC 6.7 RBC 4.19 L Hgb 13.3 L Hct 42.8 MCV 102.1 H MCH 31.7 MCHC 31.1 RDW 15.2 Plt Count 132 L MPV 12.2 Immature Gran % (Auto) 0.3 Neut % (Auto) 90.5 H Lymph % (Auto) 3.9 L [place] % (Auto) 5.2 Eos % (Auto) 0.0 Baso % (Auto) 0.1 Lymph # (Auto) 0.3 L [place] # (Auto) 0.4 Eos # (Auto) 0.0 Baso # (Auto) 0.0 Abs Immat Gran (auto) 0.02 Absolute Neuts (auto) 6.1 Absolute Nucleated RBC 0.000 Nucleated RBC % (auto) 0.0 Smear Tech's Comments VERIFIED VBG pH 7.25 L VBG pCO2 66 VBG Oxygen Liters/Min TNP VBG pO2 46 VBG HCO3 28 VBG O2 Saturation 76.5 VBG Base Excess -0.6 Sodium 141 Potassium 4.5 Chloride 101 Carbon Dioxide 30 H Anion Gap 15 BUN 64 H D Creatinine 2.07 H Estim Creat Clear Calc 60.9 Estimated GFR 34 POC Glucose Random Glucose 123 H Calcium 8.0 L Phosphorus 7.5 H Magnesium 3.2 H Total Bilirubin 0.3 AST 123 H ALT 38 Alkaline Phosphatase 58 D Total Protein 6.4 L Albumin 3.3 L Microbiology Microbiology Results: Microbiology 01/09/20 05:42 Blood - Venous Blood Culture - Preliminary No growth after 48 hours. 01/09/20 05:43 Blood - Venous Blood Culture - Preliminary No growth after 48 hours. 01/08/20 14:55 Blood - Venous Blood Culture - Preliminary No growth after 48 hours. 01/08/20 13:45 Blood - Venous Blood Culture - Preliminary No growth after 48 hours. Progress Note: A&P Assessment and plan (1) Anoxic brain injury: Status: Acute (2) Cocaine abuse: Status: Acute (3) Aspiration pneumonia: Status: Acute (4) Acute respiratory failure with hypoxia: Status: Acute (5) Cardiac arrest: Status: Acute Assessment and Plan: Assessment: 54-year-old gentleman with underlying history of obesity, MARY, substance abuse, heart failure admitted with out of hospital cardiac arrest with unclear down time with returned spontaneous circulation after approximately 5 minutes of cardiopulmonary resuscitation, intubated during the CPR. Plan: Neuro: PEA arrest with unclear down time, patient moving all 4 extremities after arrest. No return to consciousness with sedation vacation - MRI with significant anoxic injury. Cardiac: PEA cardiac arrest, with underlying cocaine intoxication, underlying history of systolic heart failure. 2D echocardiogram without evidence of acute cardiomyopathy. Pulmonary: Acute hypoxic respiratory failure, intubated during the CPR. Continue ventilatory support. Aspiration pneumonia, likely as a sequela of aspirating during cardiac arrest. Renal: Non oliguric. Continue to monitor renal indices and urine output. Endo: No acute issues. GI: No acute issues. ID: Aspiration pneumonia covered with Levaquin secondary to penicillin allergy. Heme/Onc: No acute issues. Psych: No acute issues. Miscellaneous: essentially no chance of meaningful neurologic recovery and likely impeding herniation explained to patient's family, who still want to proceed with full support at this time. Prophylaxis: Heparin, famotidine Diet: Tube feeds Critical care time spent: 60 minutes Time Spent With Patient Total time spent with greater than 50% in coordination of care (as documented) at patient's floor/unit and/or counseling patient:: 0 Critical Care Time Critical Care Time (minutes): 60
[2020-01-13 11:49] LABS: Glucose, Whole Blood 118 mg/dL (60-115)
--- NOTE | 2020-01-13 12:07 | MHC.CM.PN ---
Pt remains vented on ICU: brain imaging supports significant anoxic brain injury with impending herniation. Family is opting for continuation of all care. CM will continue to follow
[2020-01-13 17:34] LABS: Glucose, Whole Blood 130 mg/dL (60-115)
[2020-01-13] MEDS: propofoL 1,000 MG/100 ML VIAL 36.31 MG IVCONT (19:26)
--- NOTE | 2020-01-13 19:31 | PC.NURSE ---
SHIFT UPDATE; PT REMAINS ON SEDATION THIS AM- SHUT OFF LATE AM; REMAINED OFF SEDATION UNTIL THIS EVENING AROUND 1730 WHEN PT STARTED TO BECOME TACHYPNEIC AFTER DEEP SUCTIONING AND FIGHTING THE VENT; PROPOFOL GTT RESTARTED - DR MARTINEZ AWARE, PCV VENT SETTINGS ADJUSTED, 7.5 ET TUBE REMAINS AT 25 CM LUNG SOUNDS COARSE, DIMINISHED; PT REAMINS FEBRILE, PT DIAPHORETIC MOST OF THE SHIFT- FINE PINK RASH NOTED ON PT TRUNK, ARMS AND BACK, QUESTION DRUG RASH VS HEAT RASH VS CONTACT DERMATITIS FROM DIAPHORESIS- DR MARTINEZ MADE AWARE, NO NEW ORDERS- PT BATHED HEAD TO TOE THIS EVENING; TUBE FEEDS RESUMED AT 1200 THIS AFTERNOON; PUPILS 6MM R SIDE AND 4-5 MM L SIDE, REACTIVE BUT SLUGGISH- POSITIVE COUGH, ? YAWNING THIS AFTERNOON WHEN DEEP SUCTIONING, MILD HEAD JERK FORWARD MOVEMENTS WITH SUCTIONING- OTHER THAN THAT NO OTHER MOVEMENT OR WITHDRAWAL TO PAINFUL STIMULI- DR MARTINEZ AWARE;
[2020-01-13 23:35] LABS: Glucose, Whole Blood 129 mg/dL (60-115)
[2020-01-14] VITALS (33 sets, daily range): BP systolic 114–209; BP diastolic 66–106; PULSE 83–118; RESP 17–38; TEMP 38.1–38.8; O2SAT 85–96; BMI 41.5
[2020-01-14] MEDS: propofoL 1,000 MG/100 ML VIAL 18.16 MG IVCONT ×3 (03:05→13:09)
[2020-01-14 05:37] LABS: Basophils Percent Auto 0.1 % (0-2); Hematocrit 43.6 % (42-52); Hemoglobin 13.5 g/dl (14.0-18.0); Imm Gran Abs Auto 0.04 X10*3/uL (0.00-0.03); Imm Gran Pct Auto 0.5 % (0.0-0.4); Lymphocytes Absolute Auto 0.4 X10*3/uL (1.2-4.9); MANUAL DIFF FLAG SCAN; Mean Corpuscular Hemoglobin 31.7 pg (27.0-33.0); Mean Corpuscular Volume 102.3 fL (80-98); Mean Platelet Volume 12.2 fL (9.4-12.4); Monocytes Absolute Auto 0.5 X10*3/uL (0.1-1.2); Monocytes Percent Auto 5.7 % (2-11); Neutrophils Absolute Auto 7.3 X10*3/uL (2.0-8.3); Neutrophils Percent Auto 88.7 % (45-73); Platelet Count 136 X10*3/uL (160-400); Red Blood Count 4.26 X10*6/uL (4.60-5.80); Red Cell Distribution Width 15.2 % (11.0-16.0); SCAN SMEAR FLAG 1; White Blood Count 8.3 X10*3/uL (4.8-10.8)
[2020-01-14 05:40] LABS: HCO3 VBG 32 mmol/L; PCO2 VBG 66 mmhg; PO2 VBG 38 mmhg; pH VBG 7.29 (7.32-7.43)
[2020-01-14 05:41] LABS: Oxygen Saturation VBG 66.4 %; SLIDE REVIEW VERIFIED
[2020-01-14 06:11] LABS: Alanine Aminotransferase 48 U/L (0-40); Albumin Level 3.2 g/dL (3.5-5.0); Alkaline Phosphatase 75 U/L (39-117); Anion Gap 14 (12-20); Aspartate Amino Transferase 141 U/L (5-37); Bilirubin Total 0.5 mg/dL (0.0-1.0); Blood Urea Nitrogen 80 mg/dL (9-16); Calcium 8.4 mg/dL (8.4-10.2); Carbon Dioxide 30 mmol/L (22-29); Chloride 105 mmol/L (96-108); Creatinine Clr Calc Pharmacy 61.5; Estimated Glomerular Filt Rate 34; Glucose Random 121 mg/dL (60-115); Magnesium 3.6 mg/dL (1.6-2.6); Phosphorus 3.5 mg/dL (2.7-4.5); Potassium 4.1 mmol/l (3.3-5.1); Sodium 145 mmol/L (135-145); Total Protein 6.5 g/dL (6.5-8.0)
[2020-01-14 06:23] LABS: Glucose, Whole Blood 129 mg/dL (60-115)
--- NOTE | 2020-01-14 08:01 | PC.NURSE ---
ASSUMED CARE AT 19:00. PATIENT WAS INITIALLY ON PROPOFOL OF 30, NON-RESPONSIVE, BUT WITH +COUGH AND +GAG. ALSO INTUBATED WITH ETT #7.5 23 CM OLGA, AND DISCUSSED WITH RT, NURSING REPORT HAD INDICATED ETT AT 25 CM OLGA; AFTER DISCUSSION WITH PULVERIZER AND WITH RT, WHO HAD DOCUMENTED ETT AT 23 CM OLGA, PULVERIZER DETERMINED TO KEEP ETT IN CURRENT LOCATION AT 23 CM AT THE BOTTOM LIP. PATIENT WITH PRESSURE CONTROL SETTINGS: AC 20; PRESSURE IS 26; PEEP 12; FIO2 100%; TIDAL VOLUM 500'S; MINUTE VOLUMES 16-17; RR WAS INITIALLY LOW 30'S. PULVERIZER GAVE ORDER TO TITRATE THE PROPOFOL OFF, AND THIS WAS DONE GRADUALLY FROM 20:00 TO OFF AT 23:00; BY 00:00 PATIENT WAS TACHYPNEIC WITH RR 32-39, DIAPHORETIC; TEMPERATURE CLIMBED FROM 100.8 AT 20:00 TO 101.7 TMAX AT THIS TIME; ALSO, HAD HYPERTENSION WITH 174/110 RANGE; DISCUSSED WITH PULVERIZER AND ORDERED TO TURN PROPOFOL BACK ON; WHICH WAS RESTARTED TO 30 AND THEN TITRATED DOWN TO 20 BY MORNING. PATIENT IS NON-RESPONSIVE. INITIALLY, IN THE 20:00 TIME, PATIENT HAD A GAG, AND A COUGH, BUT BY 3 AM HAD NO GAG; PULVERIZER AWARE. NO NEW ORDERS AT THIS TIME. DISCUSSED PATIENT POSSIBILITY OF EEG TODAY; DAY SHIFT TO FOLLOW UP. PATIENT HAD COFFEE-GROUND ASPIRATE FROM OGT 65 CCS AT 20:00; PULVERIZER NOTIFIED, NO NEW ORDERS, BUT OK TO GIVE PROPHYLACTIC HEPARIN 5,000 U AT 00:00, WHICH WAS GIVEN. PATIENT POC WELL CONTROLLED. SBP THIS MORNING 130'S-140'S. PATIENT STILL NON-RESPONSIVE, NO COUGH, NO GAG, PUPILS FIXED AT 2 MM, PULVERIZER AWARE.
[2020-01-14] MEDS: fentaNYL citrate/PF 100 MCG/2 ML VIAL IVPUSH ×2 (08:51→08:55)
[2020-01-14] MEDS: levoFLOXacin/D5W 750 MG/150 ML PIGGYBACK 100 MG IV (08:53)
[2020-01-14] MEDS: Famotidine/PF 20 MG/2 ML VIAL IVPUSH ×2 (08:54→20:02)
[2020-01-14] MEDS: Heparin Sodium,Porcine 5,000 UNIT/ML VIAL 5000 UNIT SUBCUT ×3 (08:54→23:51)
[2020-01-14] MEDS: 0.9 % Sodium Chloride Flush 3 ML SYRINGE IVFLUSH ×3 (08:55→23:51)
[2020-01-14] MEDS: Chlorhexidine Gluc Oral Rinse 15 ML MOUTHWASH BUCCAL ×3 (08:56→20:01)
[2020-01-14] MEDS: fentaNYL citrate/NS 1,000 MCG/100 ML PLAST..BAG 20 MCG IVCONT ×3 (09:25→19:02)
--- NOTE | 2020-01-14 09:41 | MHC.CM.PN ---
pt remains in icu, intubated, sedated on mech. ventilator. dc plan is uncertain at this time. deferred to a future time. cm to cont. to follow.
--- NOTE | 2020-01-14 10:08 | XR_ITS ---
EXAMINATION: XR CHEST CLINICAL INFORMATION: Follow-up pneumonia COMPARISON: Previous chest x-ray most recent 01/09/2020 TECHNIQUE: Frontal view of the chest was obtained. FINDINGS: There is an endotracheal tube with tip 8 cm above the celestina. Nasogastric tube projects over the stomach. The tip is not seen. The cardiac and mediastinal contours are stable. There is dense bilateral airspace disease. This appears increased from most recent exam 01/09/2020. There is no pleural effusion or pneumothorax. There are degenerative changes of the spine. IMPRESSION: Endotracheal tube 8 cm above the celestina. This should be advanced several centimeters. Nasogastric tube projects over the stomach, tip not seen. Increasing bilateral airspace disease. Findings will be communicated by the [place] work flow airplane rental clerk.
--- NOTE | 2020-01-14 10:44 | MHC.CLN ---
F/U SEDATION HAS DECREASED SINCE LAST ASSESSMENT RECOMMEND INCREASING TF PROMOTE AT MAX GOAL RATE 60CC/HR TO PROVIDE 1440KCALS (1915KCALS WITH SEDATION; 24KCALS/KG), 90G PROTEIN (1.1G/KG), 2408CC TOTAL WATER FROM FORMULA AND FLUSHES (30CC/KG) FOLLOWING
[2020-01-14] MEDS: Albuterol/Iprat 2.5/0.5MG 3 ML AMPUL.NEB INHALE ×2 (11:29→17:57)
[2020-01-14 11:54] LABS: Glucose, Whole Blood 178 mg/dL (60-115)
[2020-01-14] MEDS: Insulin Lispro 100 UNIT/ML 3 ML VIAL SUBCUT ×2 (11:55→18:38)
--- NOTE | 2020-01-14 14:05 | P.PNCC_ITS ---
Subjective Subjective Date of Service: 01/14/20 Interval History: Mr. Beck was admitted to ICU on Jan 07 after an OOH cardiac arrest. The patient is a 54-year-old gentleman with underlying history of morbid obesity, obstructive sleep apnea, polysubstance abuse, and congestive heart fail ure. He is unmarried. The NOK is a daughter who lives in [place]. He has no HCP as far as we know. On Jan 07, he was reportedly shopping at a local grocery store and was noted by the staff to look unwell. EMS was called. By report, the corporate trainer found him cyanotic but he had a pulse. He was loaded into the ambulance. It is unclear what exactly happened between there and arrival at the hospital. According to the resuscitation report from the ED, the corporate trainer reported that they put him in the ambulance to initiate BiPAP, but he went into respiratory arrest. Upon arrival at the ED, the corporate trainer were giving [id number] ventilation. They reported that the patient had a rhythm but no pulse. On arrival to the ED, the patient had no pulse and was not breathing. CPR/ACLS was started. The patient was intubated. Initial echo reportedly showed no contractile motion. After three rounds of epi, he as ROSC. He was reportedly moving all 4 extremities after CPR, requiring sedation while on ventilatory support. EKG showed no acute ST abnormality. Tox screen was positive for cocaine. He was admitted to intensive care unit. Echo the next day showed normal left ventricular systolic function with EF 55- 60%. Right ventricular cavity size and systolic function were normal. Both atria were normal in size. There is no obvious valvular pathology. The IVC was dilated with no inspiratory collapse. RVSP was 57+15=72mm. Over the next 3 days, multiple times for made to wake the patient up and he failed to arouse. On January 10, the patient underwent an MRI of the brain which was notable for diffuse anoxic brain injury with extensive involvement of the bilateral frontoparietal, occipital, and temporal lobes as well as the deep nuclei. There was early evolving cerebral edema with regional sulcal and lateral ventricle effacement, with partial effacement of the suprasellar cistern without overt transtentorial herniation. The cerebellar tonsils were positioned at the level of the foramen magnum without overt tonsillar herniation or brainstem compression at that time. Dr. Vasquez spoke with the family and indicated that the prognosis was grave and the patient was going to . The family chose to continue with critical care management, hoping for a miracle. Over subsequent days, the patient's course has been marked by hemodynamic instability with severe hypertension requiring propofol and multiple episodes of SVT requiring cardioversion with adenosine and esmolol. In addition, the patient has had temps up to 104 degrees, with persistent low- grade temps in the 101 range over the last 2 days, without leukocytosis. And for virtually the entire time the patient has been here, the patient has been severely hypoxemic, requiring 100% FiO2 for the last 2 days. Initial chest x- ray showed a right lower lobe infiltrate consistent with aspiration, and the patient has been on Levaquin (he?s penicillin allergic). On exam this morning, on no sedation, the patient was completely unresponsive. He was overbreathing the ventilator and did have a cough to suctioning. He had positive dolls eyes but no corneal reflex. He has no response to painful stimuli. No posturing. I saw no myoclonus today. See vital signs below. Heart rate was 97, with quadrigeminy. Blood pressure was 180/85. Respiratory respiratory rate was 36 with the ventilator set at AC/PC, rate of 20, pressures 26/12, I:E 1:2, 100% FiO2, with sat 92%, minute volume 16 L, PIPs 39 Ppl 35. There is no jugular venous distention with the head at about 30 degrees. Auscultation of the chest shows diffuse rhonchi with a normal expiratory phase. I cannot hear heart tones. Abdomen is benign with no organomegaly. He has trivial edema. LABORATORY DATA: As below. Notably, BUN/creat are up to 80/2.0. IMPRESSION: 1. Status post cardiac arrest with severe anoxic brain injury. Brain injury caused by lack of spontaneous circulation was compounded by pre-existing hypoxemia, leading to severe anoxic brain injury beyond what would have been expected by a purported short duration of cardiac arrest before ROSC. Given the MRI findings, prognosis for meaningful recovery of cortical function is zero. 2. Cocaine abuse. 3. Bilateral pulmonary infiltrates, most likely 2? severe bilateral aspiration p neumonia, but neuro-induced pulmonary edema is a possibility. Reasonable to continue Levaquin. 4. Acute hypoxemic and hypercarbic respiratory failure 2? above. 5. BIBI, getting worse. Possibile etiologies include ATN, hypovolemia (very doubtful), and right heart failure. I?ll send a urine Na and repeat his echo. 6. Uncontrolled hypertension. ? 2? Sana reflex. 7. Labile tachycardia. ? Similar sympathetic response to increasing ICP. 8. Persistent hyperthermia. Could be 2? infection vs failure of temp regulation 2? brain injury. Otherwise usual supportive care. ADDENDUM: I spoke with the patient's brother this morning and again late this afternoon for some time. I discussed with him what happened, with the physiology of cardiac arrest and anoxic encephalopathy is, with the brain scan findings were, an indicated that there was no chance of meaningful return of cortical function, and that he would be vegetative if he survived. But I indicated that there was virtually no chance of survival given both his cerebral and pulmonary issues. I told him I was certain that the patient was going to in this hospital. The patient's brother discussed with me the family's interest in transferring the patient to [facility] or the [facility]. I told him that we would be amenable to that, but it was unlikely that either hospital would accept him, and furthermore, that there would be insurance issues in transferring him given lack of any advanced care that could be offered that we could not do here. I believe the brother understands that and is content for now for the patient to remain here. Critical care time (including extensive chart review, multiple discussions with Dr. Vasquez, multiple visits to the bedside, and multiple discussions with family (brother and sister)): 130 +minutes. Physical Exam Vital Signs: Vital Signs: Vital Signs Temp Pulse Resp BP Pulse Ox 01/14/20 13:59 111 H 35 H 141/90 H 87 L 01/14/20 13:00 100.6 F H 107 H 34 H 159/87 H 87 L 01/14/20 12:00 100.8 F H 108 H 35 H 140/89 H 87 L 01/14/20 11:00 104 H 35 H 168/95 H 86 L 01/14/20 10:00 107 H 34 H 156/79 H 87 L 01/14/20 09:00 101.3 F H 99 34 H 209/106 H 88 L 01/14/20 08:55 34 H 01/14/20 08:51 34 H 01/14/20 08:00 101.3 F H 94 35 H 180/85 H 91 L 01/14/20 07:00 101.3 F H 94 32 H 152/81 H 92 01/14/20 06:00 101.3 F H 89 17 140/72 H 93 01/14/20 05:00 101.1 F H 88 29 H 140/73 H 92 01/14/20 04:00 101.1 F H 86 29 H 139/74 94 01/14/20 03:00 101.1 F H 85 29 H 132/71 94 01/14/20 02:00 101.1 F H 88 30 H 127/66 96 01/14/20 01:00 101.3 F H 93 31 H 142/80 H 93 01/14/20 00:00 101.7 F H 94 35 H 174/104 H 96 01/13/20 22:49 101.7 F H 89 33 H 145/81 H 93 01/13/20 22:00 101.7 F H 89 34 H 138/82 93 01/13/20 21:00 101.3 F H 90 26 H 145/78 H 93 01/13/20 19:49 100.8 F H 88 89 H 148/81 H 93 01/13/20 19:00 100.8 F H 89 31 H 138/84 92 01/13/20 17:47 101.5 F H 90 30 H 119/70 97 01/13/20 17:00 101.5 F H 94 30 H 151/81 H 97 01/13/20 15:51 101.8 F H 85 20 142/79 H 89 L 01/13/20 15:00 101.5 F H 83 20 137/76 90 L Body Mass Index 41.5 Objective Data Labs CBC & Chem 7: 01/14/20 05:21 01/14/20 05:21 Labs: Laboratory Results - last 24 hr 01/13/20 01/13/20 01/14/20 17:29 23:32 05:21 WBC 8.3 RBC 4.26 L Hgb 13.5 L Hct 43.6 MCV 102.3 H MCH 31.7 MCHC 31.0 RDW 15.2 Plt Count 136 L MPV 12.2 Immature Gran % (Auto) 0.5 H Neut % (Auto) 88.7 H Lymph % (Auto) 5.0 L [place] % (Auto) 5.7 Eos % (Auto) 0.0 Baso % (Auto) 0.1 Lymph # (Auto) 0.4 L [place] # (Auto) 0.5 Eos # (Auto) 0.0 Baso # (Auto) 0.0 Abs Immat Gran (auto) 0.04 H Absolute Neuts (auto) 7.3 Absolute Nucleated RBC 0.000 Nucleated RBC % (auto) 0.0 Smear Tech's Comments VERIFIED VBG pH VBG pCO2 VBG Oxygen Liters/Min VBG pO2 VBG HCO3 VBG O2 Saturation VBG Base Excess Sodium Potassium Chloride Carbon Dioxide Anion Gap BUN Creatinine Estim Creat Clear Calc Estimated GFR POC Glucose 130 H 129 H Random Glucose Calcium Phosphorus Magnesium Total Bilirubin AST ALT Alkaline Phosphatase Total Protein Albumin 01/14/20 01/14/20 01/14/20 05:21 05:21 06:19 WBC RBC Hgb Hct MCV MCH MCHC RDW Plt Count MPV Immature Gran % (Auto) Neut % (Auto) Lymph % (Auto) [place] % (Auto) Eos % (Auto) Baso % (Auto) Lymph # (Auto) [place] # (Auto) Eos # (Auto) Baso # (Auto) Abs Immat Gran (auto) Absolute Neuts (auto) Absolute Nucleated RBC Nucleated RBC % (auto) Smear Tech's Comments VBG pH 7.29 L VBG pCO2 66 VBG Oxygen Liters/Min TNP VBG pO2 38 VBG HCO3 32 VBG O2 Saturation 66.4 VBG Base Excess 3.0 Sodium 145 Potassium 4.1 Chloride 105 Carbon Dioxide 30 H Anion Gap 14 BUN 80 H* D Creatinine 2.05 H Estim Creat Clear Calc 61.5 Estimated GFR 34 POC Glucose 129 H Random Glucose 121 H Calcium 8.4 Phosphorus 3.5 Magnesium 3.6 H* Total Bilirubin 0.5 AST 141 H ALT 48 H Alkaline Phosphatase 75 D Total Protein 6.5 Albumin 3.2 L 01/14/20 11:50 WBC RBC Hgb Hct MCV MCH MCHC RDW Plt Count MPV Immature Gran % (Auto) Neut % (Auto) Lymph % (Auto) [place] % (Auto) Eos % (Auto) Baso % (Auto) Lymph # (Auto) [place] # (Auto) Eos # (Auto) Baso # (Auto) Abs Immat Gran (auto) Absolute Neuts (auto) Absolute Nucleated RBC Nucleated RBC % (auto) Smear Tech's Comments VBG pH VBG pCO2 VBG Oxygen Liters/Min VBG pO2 VBG HCO3 VBG O2 Saturation VBG Base Excess Sodium Potassium Chloride Carbon Dioxide Anion Gap BUN Creatinine Estim Creat Clear Calc Estimated GFR POC Glucose 178 H Random Glucose Calcium Phosphorus Magnesium Total Bilirubin AST ALT Alkaline Phosphatase Total Protein Albumin Microbiology Microbiology Results: Microbiology 01/09/20 05:42 Blood - Venous Blood Culture - Final No growth after 5 days. 01/09/20 05:43 Blood - Venous Blood Culture - Final No growth after 5 days. 01/08/20 14:55 Blood - Venous Blood Culture - Final No growth after 5 days. 01/08/20 13:45 Blood - Venous Blood Culture - Final No growth after 5 days. Progress Note: A&P Time Spent With Patient Time: Total time spent is greater than 50% in coordination of care (as documented) at patient's floor/unit and/or counseling patient: Total time spent with greater than 50% in coordination of care (as documented) at patient's floor/unit and/or counseling patient:: 0 Critical Care Time Critical Care Time (minutes): 120
--- NOTE | 2020-01-14 14:09 | MHC.PIE ---
P: SVT, HR 200'S. SPO2 DROPPING TO 82%, ALREADY ON 100% FIO2. I: PT ASSESSED, MD NOTIFIED. ADENOSINE 6MG IV GIVEN PER MD. E: PT INTUBATED/SEDATE. ADENOSINE GIVEN WITH CONVERSION BACK TO SINUS TACH WITH FREQ PVCS AND PACS. SPO2 BACK UP TO 87-88%. MD AWARE.
[2020-01-14] MEDS: Adenosine 6 MG/2 ML VIAL IVPUSH (15:26)
[2020-01-14] MEDS: Esmolol HCl/NaCl Iso 2,500 MG/250 ML IV.SOLN 22.13 MG IVCONT (15:27)
--- NOTE | 2020-01-14 17:32 | PC.NURSE ---
VISITOR LIST: PER MD AND DIRECTOR WORK ONLY ON 2 VISITORS ALLOWED IN THE MORNING AND 2 VISITORS IN THE EVENING FOR 30 MINUTES AND IT IS TO BE THE SAME FOUR VISITORS. PER DAUGHTER ALEXANDRIA TRUJILLO (NEXT OF KIN) THE LIST INCLUDES: ALEXANDRIA TRUJILLO, DOLORES TRUJILLO (PTS BROTHER) AND KO CONTRERAS (PTS EX GF/ALEXANDRIA'S MOTHER). SHE DID NOT HAVE A FOURTH VISITOR TO LIST AT THIS TIME. ALEXANDRIA HAS MADE IT VERY CLEAR THAT ONLY HER AND DOLORES TRUJILLO ARE TO BE UPDATED ON PTS STATUS BY RNS AND MD. NO ONE ELSE IS TO BE GIVEN INFORMATION. ALEXANDRIA TRUJILLO CONTACT NUMBERS: [phone] (MAIN NUMBER). [phone] (SECONDARY NUMBER)
--- NOTE | 2020-01-14 18:03 | PC.NURSE ---
ASSUMED CARE AT 1500- PT IN SVT 200S- ADENOSINE GIVEN AND ESMOLOL GTT STARTED; PT HR NOW 100S; PT FEBRILE, TACHYPNEIC; LUNG SOUNDS COARSE; PT UNRESPONSIVE; PROPOFOL GTT SHUT OFF WHEN ESMOLOL GTT TURNED ON; FENTANYL GTT REMAINS RUNNING;
[2020-01-14 18:26] LABS: Glucose, Whole Blood 187 mg/dL (60-115)
[2020-01-14 18:59] LABS: Base Excess VBG 0.1 mmol/L; HCO3 VBG 33 mmol/L; PCO2 VBG 100 mmhg; PO2 VBG 39 mmhg
[2020-01-14 19:01] LABS: pH VBG 7.14 (7.32-7.43)
[2020-01-14 19:56] LABS: Sodium Urine Random < 20.0 mmol/L
[2020-01-14] MEDS: Sodium Bicarbonate 8.4% 50 MEQ/50 ML VIAL IV (20:01)
[2020-01-14] MEDS: Lactated Ringers 1,000 ML 999 ML IVCONT (20:41)
[2020-01-14] MEDS: Esmolol HCl/NaCl Iso 2,500 MG/250 ML IV.SOLN 44.25 MG IVCONT (21:18)
[2020-01-14 21:36] LABS: HCO3 VBG 33 mmol/L; Oxygen Saturation VBG 65.7 %; PCO2 VBG 78 mmhg; PO2 VBG 36 mmhg; pH VBG 7.24 (7.32-7.43)
[2020-01-14 23:52] LABS: Glucose, Whole Blood 150 mg/dL (60-115)
[2020-01-15] VITALS (30 sets, daily range): BP systolic 96–162; BP diastolic 43–141; PULSE 93–105; RESP 29–40; TEMP 38.5–39.4; O2SAT 74–98; BMI 43.6
[2020-01-15] MEDS: Albuterol/Iprat 2.5/0.5MG 3 ML AMPUL.NEB INHALE ×4 (00:14→16:59)
[2020-01-15] MEDS: fentaNYL citrate/NS 1,000 MCG/100 ML PLAST..BAG 30 MCG IVCONT ×8 (01:36→23:40)
[2020-01-15] MEDS: Esmolol HCl/NaCl Iso 2,500 MG/250 ML IV.SOLN 44.25 MG IVCONT ×2 (03:29→09:15)
[2020-01-15 05:23] LABS: Glucose, Whole Blood 130 mg/dL (60-115)
[2020-01-15 06:00] LABS: Hematocrit 46.6 % (42-52); Hemoglobin 13.8 g/dl (14.0-18.0); Mean Corpuscular HGB Conc 29.6 g/dl (31.0-36.0); Mean Corpuscular Volume 104.7 fL (80-98); Mean Platelet Volume 12.5 fL (9.4-12.4); Platelet Count 151 X10*3/uL (160-400); Red Blood Count 4.45 X10*6/uL (4.60-5.80); Red Cell Distribution Width 15.2 % (11.0-16.0); White Blood Count 12.8 X10*3/uL (4.8-10.8)
[2020-01-15 06:21] LABS: Base Excess VBG 1.1 mmol/L; HCO3 VBG 31 mmol/L; PCO2 VBG 79 mmhg; PO2 VBG 44 mmhg; pH VBG 7.22 (7.32-7.43)
[2020-01-15 06:34] LABS: Blood Urea Nitrogen 87 mg/dL (9-16)
[2020-01-15 06:35] LABS: Alanine Aminotransferase 49 U/L (0-40); Albumin Level 3.2 g/dL (3.5-5.0); Alkaline Phosphatase 115 U/L (39-117); Anion Gap 15 (12-20); Aspartate Amino Transferase 121 U/L (5-37); Bilirubin Total 0.9 mg/dL (0.0-1.0); Calcium 8.8 mg/dL (8.4-10.2); Carbon Dioxide 32 mmol/L (22-29); Chloride 106 mmol/L (96-108); Creatinine Clr Calc Pharmacy 57.5; Estimated Glomerular Filt Rate 32; Glucose Random 128 mg/dL (60-115); Magnesium 3.7 mg/dL (1.6-2.6); Phosphorus 4.1 mg/dL (2.7-4.5); Potassium 4.9 mmol/l (3.3-5.1); Sodium 148 mmol/L (135-145); Total Protein 6.5 g/dL (6.5-8.0)
[2020-01-15 06:49] LABS: Procalcitonin 1.21 ng/mL
[2020-01-15] MEDS: 0.9 % Sodium Chloride Flush 3 ML SYRINGE IVFLUSH ×3 (07:16→23:43)
[2020-01-15] MEDS: levoFLOXacin/D5W 750 MG/150 ML PIGGYBACK 100 MG IV (07:20)
[2020-01-15] MEDS: Chlorhexidine Gluc Oral Rinse 15 ML MOUTHWASH BUCCAL ×3 (07:20→22:13)
[2020-01-15] MEDS: Heparin Sodium,Porcine 5,000 UNIT/ML VIAL 5000 UNIT SUBCUT ×3 (07:20→23:42)
[2020-01-15] MEDS: Famotidine/PF 20 MG/2 ML VIAL IVPUSH ×2 (07:21→22:13)
[2020-01-15] MEDS: Albuterol Sulfate (0.083%) 2.5 MG/3 ML VIAL.NEB INHALE (07:31)
[2020-01-15 11:40] LABS: Glucose, Whole Blood 122 mg/dL (60-115)
--- NOTE | 2020-01-15 13:40 | PM.CCPN ---
Subjective Subjective Date of Service: 01/15/20 Interval History: Mr. Beck was admitted to ICU on Jan 07 after an OOH cardiac arrest. The patient is a 54-year-old gentleman with underlying history of morbid obesity, obstructive sleep apnea, polysubstance abuse, and congestive heart failure. He is unmarried. The NOK is a daughter, Maribell, who lives in [place]. He has no HCP as far as we know. On Jan 07, he was reportedly shopping at a local grocery store and was noted by the staff to look unwell. EMS was called. By report, the software support analyst found him cyanotic but he had a pulse. He was loaded into the ambulance. It is unclear what exactly happened between there and arrival at the hospital. According to the resuscitation report from the ED, the software support analyst reported that they put him in the ambulance to initiate BiPAP, but he went into respiratory arrest. Upon arrival at the ED, the software support analyst were giving [id number] ventilation. They reported that the patient had a rhythm but no pulse. On arrival to the ED, the patient had no pulse and was not breathing. CPR/ACLS was started. The patient was intubated. Initial echo reportedly showed no contractile motion. After three rounds of epi, he as ROSC. He was reportedly moving all 4 extremities after CPR, requiring sedation while on ventilatory support. EKG showed no acute ST abnormality. Tox screen was positive for cocaine. He was admitted to intensive care unit. Echo the next day showed normal left ventricular systolic function with EF 55-60%. Right ventricular cavity size and systolic function were normal. Both atria were normal in size. There is no obvious valvular pathology. The IVC was dilated with no inspiratory collapse. RVSP was 57+15=72mm. Over the next 3 days, multiple attempts were made to wake the patient up and he failed to arouse. On January 10, the patient underwent an MRI of the brain which was notable for diffuse anoxic brain injury with extensive involvement of the bilateral frontoparietal, occipital, and temporal lobes as well as the deep nuclei. There was early evolving cerebral edema with regional sulcal and lateral ventricle effacement, with partial effacement of the suprasellar cistern without overt transtentorial herniation. The cerebellar tonsils were positioned at the level of the foramen magnum without overt tonsillar herniation or brainstem compression at that time. Dr. Vasquez spoke with the family and indicated that the prognosis was grave and the patient was going to . The family chose to continue with critical care management, hoping for a miracle. Over subsequent days, the patient's course has been marked by hemodynamic instability with severe hypertension requiring propofol and multiple episodes of SVT requiring cardioversion with adenosine and esmolol. In addition, the patient has had temps up to 104 degrees, and over the last three days has had persistent temps in the 101-102 range, without leukocytosis. And for virtually the entire time the patient has been here, the patient has been severely hypoxemic, requiring 100% FiO2 for the last 3 days. Initial chest x-ray showed a right lower lobe infiltrate consistent with aspiration, and the patient has been on Levaquin (he?s penicillin allergic). And for the last 24 hrs he?s been severely hypercarbic, despite minute volumes in the 17L range. We?ve had him on fentanyl 2-300ug/hr for the last 24 hrs just to control his WOB, but it hasn?t helped much, RR is in the mid-high 30?s. On exam this morning, he?s on just fentanyl at 300ug, no sedation. The patient was completely unresponsive. No response to painful stimulation. No corneals. Equivocal dolls eyes (probably negative). He still has a gag, and he?s overbreathing the ventilator. No posturing and no myoclonus. See vital signs below. Heart rate 100, stable sinus rhythm since restarted him on esmolol yesterday. He is now on 25 mcg. Blood pressure up until about 3am this morning was in the 130-180 range. It then dropped into the 110s and even into the 90s. No significant change in his respiratory pattern. With the ventilator set at AC/PC, rate of 20, pressures 30/12, 100% FiO2, with sat 86%, Vt 500cc, minute volume 19.5L, PIPs 43. There is no jugular venous distention with the head at about 30 degrees. Auscultation of the chest shows diffuse rhonchi with a normal expiratory phase. I cannot hear heart tones. Abdomen is benign with no organomegaly. He has trivial edema. LABORATORY DATA: As below. Notably, central venous blood gas this morning showed 7.22/79/+1. White count this morning is elevated for the first time in days, to 12.8. Sodium is 148, BUN and creatinine are up to 87/2.1 (was 80/2.0 yesterday). MICROBIOLOGY: Sputum Gram stain from today's pending. ECHOCARDIOGRAM for hemodynamic monitoring: Image quality: Fair at best. Findings: 1. Inadequate image quality to assess wall thickness. 2. LV cavity size is normal, with probably normal LV fxn. No RWMA noted. Image quality was in adequate to quantify EF. 3. RV size normal on parasternal and a pickle 4 chamber views. Looked mildly enlarged on the subcostal view. 4. Atria appear normal sized. 5. AoV not adeq assessed. 6. MV not adequately assessed. 7. TV not adequately assessed. 8. IVC 1.6cm w 50% insp collapse. Estimated CVP 7-8cm. Unable to estimate RVSP. IMPRESSION: 1. Status post cardiac arrest with severe anoxic brain injury. Brain injury caused by lack of spontaneous circulation was compounded by pre-existing hypoxemia, leading to severe anoxic brain injury beyond what would have been expected by a purported short duration of cardiac arrest before ROSC. Given the MRI findings, prognosis for meaningful recovery of cortical function is zero. 2. Cocaine abuse. 3. Bilateral pulmonary infiltrates, most likely 2? severe bilateral aspiration pneumonia, but neurogenic pulmonary edema is a possibility. Reasonable to continue Levaquin. Given his critically worsening hypercarbia in the face of extraordinary minute volumes, and lacking other treatment avenues, we?ll give him a three day trial of high dose solumedrol. 4. Acute hypoxemic and hypercarbic respiratory failure 2? above. 5. BIBI, getting worse. Urine Na yesterday was < 20. Echo suggests that he might be dry. We will bolus volume and see how he responds. 6. Uncontrolled hypertension, followed by rapid onset hypotension. ? 2? [place] reflex. But no change in his resp pattern yet, which I would expect to be the next thing that would change as he herniates. 7. Labile tachycardia. ? Similar sympathetic response to increasing ICP. 8. Persistent hyperthermia. Could be 2? infection vs failure of temp regulation 2? brain injury. 9. Hypernatremia. We?re bolusing him with half-normal saline. Otherwise usual supportive care. There is literally no prognosis for survival here. What we are doing is practically barbaric. I spoke with the patient's brother at length yesterday afternoon and told him that there is no chance for survival. I asked him to communicate that to the rest of the family. The patient's daughter Maribell called this morning and I told her the same thing. She told me that she is going to come in to see him this afternoon. It?s my intention to tell her that, ethically, we must terminate critical care management and allow him to in peace. Critical care time: 75 +minutes. Physical Exam Vital Signs: Vital Signs: Vital Signs Temp Pulse Resp BP Pulse Ox 01/15/20 13:00 102.6 F H 101 H 38 H 100/62 85 L 01/15/20 12:00 102.0 F H 101 H 38 H 113/62 84 L 01/15/20 11:00 102.2 F H 101 H 39 H 109/50 L 85 L 01/15/20 10:00 102.2 F H 103 H 38 H 104/47 L 85 L 01/15/20 09:00 102.4 F H 102 H 33 H 162/141 H 85 L 01/15/20 08:00 102.9 F H 101 H 39 H 115/71 84 L 01/15/20 07:00 102.7 F H 100 29 H 103/46 L 86 L 01/15/20 06:00 100 36 H 101/53 L 87 L 01/15/20 05:00 98 34 H 100/73 89 L 01/15/20 04:00 102.7 F H 96 32 H 115/51 L 98 01/15/20 03:00 97 29 H 110/43 L 88 L 01/15/20 02:00 102.6 F H 96 35 H 132/78 87 L 01/15/20 01:00 102 F H 94 36 H 154/73 H 91 L 01/15/20 00:00 101.3 F H 94 31 H 148/81 H 92 01/14/20 23:00 91 34 H 128/74 91 L 01/14/20 22:00 91 33 H 123/73 91 L 01/14/20 21:00 94 35 H 125/71 90 L 01/14/20 20:00 102 F H 96 32 H 129/74 89 L 01/14/20 19:00 99 36 H 121/77 88 L 01/14/20 18:00 101.8 F H 99 36 H 137/92 H 87 L 01/14/20 17:00 1015 F H 100 38 H 125/78 86 L 01/14/20 15:58 101.3 F H 99 37 H 114/72 85 L 01/14/20 15:00 100.8 F H 118 H 35 H 129/80 86 L 01/14/20 13:59 111 H 35 H 141/90 H 87 L Body Mass Index 43.6 Objective Data Labs CBC & Chem 7: 01/16/20 05:49 01/16/20 05:49 Labs: Laboratory Results - last 24 hr 01/14/20 01/14/20 01/14/20 18:13 18:42 19:05 WBC RBC Hgb Hct MCV MCH MCHC RDW Plt Count MPV Absolute Nucleated RBC Nucleated RBC % (auto) VBG pH 7.14 L* VBG pCO2 100 VBG Oxygen Liters/Min Not Reportable VBG pO2 39 VBG HCO3 33 VBG O2 Saturation 65.0 VBG Base Excess 0.1 Sodium Potassium Chloride Carbon Dioxide Anion Gap BUN Creatinine Estim Creat Clear Calc Estimated GFR POC Glucose 187 H Random Glucose Calcium Phosphorus Magnesium Total Bilirubin AST ALT Alkaline Phosphatase Total Protein Albumin Procalcitonin Ur Random Sodium < 20.0 01/14/20 01/14/20 01/15/20 21:26 23:48 05:19 WBC RBC Hgb Hct MCV MCH MCHC RDW Plt Count MPV Absolute Nucleated RBC Nucleated RBC % (auto) VBG pH 7.24 L VBG pCO2 78 VBG Oxygen Liters/Min Not Reportable VBG pO2 36 VBG HCO3 33 VBG O2 Saturation 65.7 VBG Base Excess 3.0 Sodium Potassium Chloride Carbon Dioxide Anion Gap BUN Creatinine Estim Creat Clear Calc Estimated GFR POC Glucose 150 H 130 H Random Glucose Calcium Phosphorus Magnesium Total Bilirubin AST ALT Alkaline Phosphatase Total Protein Albumin Procalcitonin Ur Random Sodium 01/15/20 01/15/20 01/15/20 05:22 05:22 05:22 WBC 12.8 H RBC 4.45 L Hgb 13.8 L Hct 46.6 MCV 104.7 H MCH 31.0 MCHC 29.6 L RDW 15.2 Plt Count 151 L MPV 12.5 H Absolute Nucleated RBC 0.000 Nucleated RBC % (auto) 0.0 VBG pH 7.22 L VBG pCO2 79 VBG Oxygen Liters/Min TNP VBG pO2 44 VBG HCO3 31 VBG O2 Saturation 70.0 VBG Base Excess 1.1 Sodium 148 H Potassium 4.9 Chloride 106 Carbon Dioxide 32 H Anion Gap 15 BUN 87 H* Creatinine 2.18 H Estim Creat Clear Calc 57.5 Estimated GFR 32 POC Glucose Random Glucose 128 H Calcium 8.8 Phosphorus 4.1 Magnesium 3.7 H* Total Bilirubin 0.9 AST 121 H ALT 49 H Alkaline Phosphatase 115 D Total Protein 6.5 Albumin 3.2 L Procalcitonin Ur Random Sodium 01/15/20 01/15/20 05:22 11:36 WBC RBC Hgb Hct MCV MCH MCHC RDW Plt Count MPV Absolute Nucleated RBC Nucleated RBC % (auto) VBG pH VBG pCO2 VBG Oxygen Liters/Min VBG pO2 VBG HCO3 VBG O2 Saturation VBG Base Excess Sodium Potassium Chloride Carbon Dioxide Anion Gap BUN Creatinine Estim Creat Clear Calc Estimated GFR POC Glucose 122 H Random Glucose Calcium Phosphorus Magnesium Total Bilirubin AST ALT Alkaline Phosphatase Total Protein Albumin Procalcitonin 1.21 Ur Random Sodium Microbiology Microbiology Results: Microbiology 01/09/20 05:42 Blood - Venous Blood Culture - Final No growth after 5 days. 01/09/20 05:43 Blood - Venous Blood Culture - Final No growth after 5 days. 01/08/20 14:55 Blood - Venous Blood Culture - Final No growth after 5 days. 01/08/20 13:45 Blood - Venous Blood Culture - Final No growth after 5 days. Progress Note: A&P Time Spent With Patient Time: Total time spent is greater than 50% in coordination of care (as documented) at patient's floor/unit and/or counseling patient: Total time spent with greater than 50% in coordination of care (as documented) at patient's floor/unit and/or counseling patient:: 0 Critical Care Time Critical Care Time (minutes): 90
[2020-01-15] MEDS: Sodium Chloride 0.45 % 1,000 ML 500 ML IVCONT (14:25)
--- NOTE | 2020-01-15 16:35 | PC.NURSE ---
PT GIVEN LAST RIGHTS BY FAMILY CRIMP SETTER. FAMILY FACETIMED WHILE RIGHTS WERE GIVE. DAUGHTER ALEXANDRIA STATES SHE WILL BE VISITING [employer] WITH HER MOM KO , BOTH ON VISITORS LIST. SECURITY AND NURSING ENGINE REPAIRER NOTIFIED. ALEXANDRIA UPDATED ABOUT PTS STATUS BY .
[2020-01-15 18:15] LABS: Glucose, Whole Blood 150 mg/dL (60-115)
--- NOTE | 2020-01-15 18:50 | PC.NURSE ---
MD NOTIFIED OF DECREASED TO ZERO ML/HR URINE OUTPUT. PT BOLUS 1.5 L OF 0.45% NS. MINIMAL POSITIVE EFFECT NOTED. MD AWARE OF 02 SAT OF 74%. NO FURTHER ORDERS AT THIS TIME.
[2020-01-15] MEDS: Esmolol HCl/NaCl Iso 2,500 MG/250 ML IV.SOLN 22.13 MG IVCONT (20:06)
[2020-01-15 23:39] LABS: Glucose, Whole Blood 161 mg/dL (60-115)
[2020-01-15] MEDS: Insulin Lispro 100 UNIT/ML 3 ML VIAL SUBCUT (23:41)
[2020-01-16] VITALS (21 sets, daily range): BP systolic 97–137; BP diastolic 46–77; PULSE 93–105; RESP 32–38; TEMP 37.5–38.2; O2SAT 61–81; BMI 43.9
[2020-01-16] MEDS: Albuterol/Iprat 2.5/0.5MG 3 ML AMPUL.NEB INHALE ×3 (00:13→11:31)
[2020-01-16] MEDS: fentaNYL citrate/NS 1,000 MCG/100 ML PLAST..BAG 30 MCG IVCONT ×4 (03:00→13:45)
[2020-01-16 05:40] LABS: Glucose, Whole Blood 162 mg/dL (60-115)
[2020-01-16] MEDS: Insulin Lispro 100 UNIT/ML 3 ML VIAL SUBCUT ×2 (05:43→13:51)
[2020-01-16 06:17] LABS: Basophils Percent Auto 0.1 % (0-2); Hematocrit 41.7 % (42-52); Hemoglobin 12.3 g/dl (14.0-18.0); Imm Gran Abs Auto 0.16 X10*3/uL (0.00-0.03); Imm Gran Pct Auto 1.1 % (0.0-0.4); Lymphocytes Absolute Auto 0.4 X10*3/uL (1.2-4.9); Lymphocytes Percent Auto 2.9 % (20-40); MANUAL DIFF FLAG SCAN; Mean Corpuscular HGB Conc 29.5 g/dl (31.0-36.0); Mean Platelet Volume 12.6 fL (9.4-12.4); Monocytes Absolute Auto 0.3 X10*3/uL (0.1-1.2); Monocytes Percent Auto 2.2 % (2-11); Neutrophils Absolute Auto 14.1 X10*3/uL (2.0-8.3); Neutrophils Percent Auto 93.7 % (45-73); Platelet Count 141 X10*3/uL (160-400); Red Blood Count 3.97 X10*6/uL (4.60-5.80); Red Cell Distribution Width 15.2 % (11.0-16.0); SCAN SMEAR FLAG 1
[2020-01-16 07:26] LABS: Base Excess VBG -2.6 mmol/L; HCO3 VBG 26 mmol/L; Oxygen Saturation VBG 74.3 %; PCO2 VBG 64 mmhg; PO2 VBG 42 mmhg
[2020-01-16 07:30] LABS: pH VBG 7.23 (7.32-7.43)
[2020-01-16] MEDS: 0.9 % Sodium Chloride Flush 3 ML SYRINGE IVFLUSH (07:30)
[2020-01-16] MEDS: Esmolol HCl/NaCl Iso 2,500 MG/250 ML IV.SOLN 22.13 MG IVCONT (07:31)
[2020-01-16] MEDS: Heparin Sodium,Porcine 5,000 UNIT/ML VIAL 5000 UNIT SUBCUT (07:32)
[2020-01-16 07:50] LABS: SLIDE REVIEW VERIFIED
[2020-01-16 07:57] LABS: Anion Gap 20 (12-20); Blood Urea Nitrogen 111 mg/dL (9-16); Calcium 8.6 mg/dL (8.4-10.2); Carbon Dioxide 27 mmol/L (22-29); Chloride 103 mmol/L (96-108); Creatinine Clr Calc Pharmacy 26.5; Estimated Glomerular Filt Rate 13; Glucose Fasting 156 mg/dL (60-99); Sodium 144 mmol/L (135-145)
[2020-01-16] MEDS: Famotidine/PF 20 MG/2 ML VIAL IVPUSH (09:52)
[2020-01-16] MEDS: Chlorhexidine Gluc Oral Rinse 15 ML MOUTHWASH BUCCAL ×2 (09:52→13:51)
--- NOTE | 2020-01-16 10:17 | PC.NURSE ---
Addendum entered by Neelam Figueroa RN 01/16/20 10:55: PER MD TURN ESMOLOL GTT OFF AT 1050 G[facility] FROM [facility] CALLED BACK AND IS NOT LONGER CANDIDATE FOR ORGAN DONATION Original Note: RR 38, 02 60-70% ON 100% FIO2 - ABDOMINAL BREATHING, NASAL FLARING, LABORED BREATHING - MD AWARE OF CURRENT RESPIRATORY STATUS AND DISCUSSED DURING ROUNDS - PER MD PATIENT IS NO CPR - AWAITING NO CPR ORDER. HCP CALLED AND AWAITING ARRIVAL.
--- NOTE | 2020-01-16 10:24 | MHC.CLN ---
F/U PT RECEIVING PROMOTE AT 30CC/HR PROVIDES 720KCALS, 45G PROTEIN, 604CC FREE WATER PT IS NO CPR PER MD WILL FOLLOW WITH CARE TEAM AND PROVIDE SUPPORT NEEDED
--- NOTE | 2020-01-16 10:25 | PM.CCPN ---
Subjective Subjective Date of Service: 01/16/20 Interval History: Mr. Beck was admitted to ICU on Jan 07 after an OOH cardiac arrest. The patient is a 54-year-old gentleman with underlying history of morbid obesity, obstructive sleep apnea, polysubstance abuse, and congestive heart failure. He is unmarried. The NOK is a daughter, Maribell, who lives in [place]. He has no HCP as far as we know. On Jan 07, he was reportedly shopping at a local grocery store and was noted by the staff to look unwell. EMS was called. By report, the research group director found him cyanotic but he had a pulse. He was loaded into the ambulance. It is unclear what exactly happened between there and arrival at the hospital. According to the resuscitation report from the ED, the research group director reported that they put him in the ambulance to initiate BiPAP, but he went into respiratory arrest. Upon arrival at the ED, the research group director were giving [id number] ventilation. They reported that the patient had a rhythm but no pulse. On arrival to the ED, the patient had no pulse and was not breathing. CPR/ACLS was started. The patient was intubated. Initial echo reportedly showed no contractile motion. After three rounds of epi, he as ROSC. He was reportedly moving all 4 extremities after CPR, requiring sedation while on ventilatory support. EKG showed no acute ST abnormality. Tox screen was positive for cocaine. He was admitted to intensive care unit. Echo the next day showed normal left ventricular systolic function with EF 55-60%. Right ventricular cavity size and systolic function were normal. Both atria were normal in size. There is no obvious valvular pathology. The IVC was dilated with no inspiratory collapse. RVSP was 72mm. Over the next 3 days, multiple attempts were made to wake the patient up and he failed to arouse. On January 10, the patient underwent an MRI of the brain which was notable for diffuse anoxic brain injury with extensive involvement of the bilateral frontoparietal, occipital, and temporal lobes as well as the deep nuclei. There was early evolving cerebral edema with regional sulcal and lateral ventricle effacement, with partial effacement of the suprasellar cistern without overt transtentorial herniation. The cerebellar tonsils were positioned at the level of the foramen magnum without overt tonsillar herniation or brainstem compression at that time. Dr. Vasquez spoke with the family and indicated that the prognosis was grave and the patient was going to . The family chose to continue with critical care management, hoping for a miracle. Over subsequent days, the patient's course has been marked by hemodynamic instability with severe hypertension requiring propofol and multiple episodes of SVT requiring cardioversion with adenosine and esmolol. In addition, the patient has had persistent temps in the 101-104 range, without leukocytosis until yesterday. And for virtually the entire time the patient has been here, the patient has been severely hypoxemic, requiring 100% FiO2 for the last 5 days. Initial chest x-ray showed a right lower lobe infiltrate consistent with aspiration, and the patient has been on Levaquin (he?s penicillin allergic). And for the last 48 hrs he?s been severely hypercarbic, despite minute volumes in the 17-19L range. We?ve had him on fentanyl 2-300ug/hr for the last 24 hrs just to control his WOB, but it hasn?t helped much, RR is in the mid-high 30?s. Yesterday, he dropped his BP into the 90?s for the first time, previously he?d been hypertensive (even requiring propofol to control his BP). He also dropped his Sat into the 80?s, and then later into the 70?s. On exam this morning, he?s on just fentanyl at 300ug, no sedation. The patient is completely unresponsive. No response to painful stimulation. No corneals. No dolls eyes, which is new. He still has a gag to suctioning, that?s much weaker than the last two days. He?s still overbreathing the ventilator. No posturing and no myoclonus. See vital signs below. Heart rate 91, stable sinus rhythm on esmolol at 25ug. Blood pressure 96/74. No significant change in his respiratory pattern altho his insp effort seems generally weaker. With the ventilator set at AC/PC, rate of 20, pressures 24/12, 100% FiO2, with sat in the 60?s, Vt 500cc, minute volume 19.2L, PIPs 38. Central venous blood gas this morning shows 7.23/64. There is no jugular venous distention with the head at about 30 degrees. Abdomen is benign with no organomegaly. He has minimal edema. Urine output is running 5-15cc/hr, even after blousing with 1.5L ?NS yesterday. LABORATORY DATA: As below. Notably, BUN and creatinine are up to 111/4.7 (was 87/2.1 yesterday), K up to 6.0. MICROBIOLOGY: Sputum Gram stain from yest shows 2+ polys, 1+ Gram-positive cocci. IMPRESSION: 1. Status post cardiac arrest with severe anoxic brain injury. Brain injury caused by lack of spontaneous circulation was compounded by pre-existing hypoxemia, leading to severe anoxic brain injury beyond what would have been expected by a purported short duration of cardiac arrest before ROSC. Given the MRI findings, prognosis for meaningful recovery of cortical function is zero. 2. Cocaine abuse. 3. Bilateral pulmonary infiltrates, most likely 2? severe bilateral aspiration pneumonia, but neurogenic pulmonary edema is a possibility. Reasonable to continue Levaquin. Given his critically worsening hypercarbia in the face of extraordinary minute volumes, and lacking other treatment avenues, we started him yesterday on a three day trial of high dose solumedrol. 4. Acute hypoxemic and hypercarbic respiratory failure 2? above. 5. BIBI, getting worse. He did not respond to fluid challenge. He is not a candidate for dialysis. There is no point in any attempt to intervene since nothing will improve his medical condition or prognosis. 6. Uncontrolled hypertension, followed by rapid onset hypotension. ? 2? [place] reflex. But no change in his resp pattern yet, which I would expect to be the next thing that would change as he herniates. 7. Labile tachycardia. ? Similar sympathetic response to increasing ICP. 8. Persistent hyperthermia. Could be 2? infection vs failure of temp regulation 2? brain injury. 9. Hypernatremia. Resolved with half-normal saline. Prognosis is extremely grim. There?s no doubt that he?s going to , and it looks like that will happen within the next few hours, probably no more than a day. I expect his daughter Maribell to arrive from [place] shortly, and hopefully she?ll be amenable to discontinuing critical care management and changing to comfort measures status. ADDENDUM at 1610: I spoke with Maribell at some length this afternoon and laid out the issues for her. She spoke with the rest of her family and they concluded that they'd like to take out the breathing tube and let him pass in peace. We did that and the patient passed almost immediately, at 16:04. Critical care time: 90 minutes. Physical Exam Vital Signs: Vital Signs: Vital Signs Temp Pulse Resp BP Pulse Ox 01/16/20 10:13 93 36 H 107/68 61 L 01/16/20 09:00 94 38 H 104/56 L 77 L 01/16/20 07:40 99.7 F 94 38 H 114/68 75 L 01/16/20 06:59 99.7 F 94 35 H 120/59 L 01/16/20 06:08 94 37 H 126/69 75 L 01/16/20 05:13 93 37 H 116/70 76 L 01/16/20 03:47 100.0 F 97 37 H 107/62 77 L 01/16/20 03:02 96 37 H 115/46 L 73 L 01/16/20 02:05 96 36 H 122/66 81 L 01/16/20 01:07 97 36 H 118/70 81 L 01/16/20 00:05 100.8 F H 99 32 H 132/77 81 L 01/15/20 23:04 95 35 H 110/62 84 L 01/15/20 22:17 96 37 H 119/80 84 L 01/15/20 20:57 101.5 F H 99 37 H 111/61 83 L 01/15/20 20:09 101.5 F H 98 37 H 117/57 L 82 L 01/15/20 19:02 105 H 38 H 105/57 L 77 L 01/15/20 17:53 101.5 F H 102 H 40 H 116/74 74 L 01/15/20 17:00 101.5 F H 98 38 H 113/55 L 81 L 01/15/20 16:10 79 L 01/15/20 15:52 102.4 F H 100 38 H 114/55 L 84 L 01/15/20 15:00 102.7 F H 100 38 H 110/55 L 85 L 01/15/20 14:00 102.7 F H 102 H 39 H 96/63 85 L 01/15/20 13:00 102.6 F H 101 H 38 H 100/62 85 L 01/15/20 12:00 102.0 F H 101 H 38 H 113/62 84 L 01/15/20 11:00 102.2 F H 101 H 39 H 109/50 L 85 L Body Mass Index 43.9 Objective Data Labs CBC & Chem 7: 01/16/20 05:49 01/16/20 05:49 Labs: Laboratory Results - last 24 hr 01/15/20 01/15/20 01/15/20 11:36 18:12 23:35 WBC RBC Hgb Hct MCV MCH MCHC RDW Plt Count MPV Immature Gran % (Auto) Neut % (Auto) Lymph % (Auto) [place] % (Auto) Eos % (Auto) Baso % (Auto) Lymph # (Auto) [place] # (Auto) Eos # (Auto) Baso # (Auto) Abs Immat Gran (auto) Absolute Neuts (auto) Absolute Nucleated RBC Nucleated RBC % (auto) Smear Tech's Comments VBG pH VBG pCO2 VBG Oxygen Liters/Min VBG pO2 VBG HCO3 VBG O2 Saturation VBG Base Excess Sodium Potassium Chloride Carbon Dioxide Anion Gap BUN Creatinine Estim Creat Clear Calc Estimated GFR POC Glucose 122 H 150 H 161 H Fasting Glucose Calcium 01/16/20 01/16/20 01/16/20 05:35 05:49 05:49 WBC 15.0 H RBC 3.97 L Hgb 12.3 L Hct 41.7 L MCV 105.0 H MCH 31.0 MCHC 29.5 L RDW 15.2 Plt Count 141 L MPV 12.6 H Immature Gran % (Auto) 1.1 H Neut % (Auto) 93.7 H Lymph % (Auto) 2.9 L [place] % (Auto) 2.2 Eos % (Auto) 0.0 Baso % (Auto) 0.1 Lymph # (Auto) 0.4 L [place] # (Auto) 0.3 Eos # (Auto) 0.0 Baso # (Auto) 0.0 Abs Immat Gran (auto) 0.16 H Absolute Neuts (auto) 14.1 H Absolute Nucleated RBC 0.000 Nucleated RBC % (auto) 0.0 Smear Tech's Comments VERIFIED VBG pH VBG pCO2 VBG Oxygen Liters/Min VBG pO2 VBG HCO3 VBG O2 Saturation VBG Base Excess Sodium 144 Potassium 6.0 H* D Chloride 103 Carbon Dioxide 27 Anion Gap 20 BUN 111 H* D Creatinine 4.73 H* Estim Creat Clear Calc 26.5 Estimated GFR 13 POC Glucose 162 H Fasting Glucose 156 H Calcium 8.6 01/16/20 05:49 WBC RBC Hgb Hct MCV MCH MCHC RDW Plt Count MPV Immature Gran % (Auto) Neut % (Auto) Lymph % (Auto) [place] % (Auto) Eos % (Auto) Baso % (Auto) Lymph # (Auto) [place] # (Auto) Eos # (Auto) Baso # (Auto) Abs Immat Gran (auto) Absolute Neuts (auto) Absolute Nucleated RBC Nucleated RBC % (auto) Smear Tech's Comments VBG pH 7.23 L VBG pCO2 64 VBG Oxygen Liters/Min TNP VBG pO2 42 VBG HCO3 26 VBG O2 Saturation 74.3 VBG Base Excess -2.6 Sodium Potassium Chloride Carbon Dioxide Anion Gap BUN Creatinine Estim Creat Clear Calc Estimated GFR POC Glucose Fasting Glucose Calcium Microbiology Microbiology Results: Microbiology 01/15/20 12:13 Sputum - Suctioned Gram Stain - Final 01/09/20 05:42 Blood - Venous Blood Culture - Final No growth after 5 days. 01/09/20 05:43 Blood - Venous Blood Culture - Final No growth after 5 days. 01/08/20 14:55 Blood - Venous Blood Culture - Final No growth after 5 days. 01/08/20 13:45 Blood - Venous Blood Culture - Final No growth after 5 days. Progress Note: A&P Time Spent With Patient Time: Total time spent is greater than 50% in coordination of care (as documented) at patient's floor/unit and/or counseling patient: Total time spent with greater than 50% in coordination of care (as documented) at patient's floor/unit and/or counseling patient:: 0 Critical Care Time Critical Care Time (minutes): 90
--- NOTE | 2020-01-16 11:40 | MHC.CM.PN ---
Patient continues vented and sedated, very poor prognosis. CM will continue to follow for discharge needs.
[2020-01-16 11:59] LABS: Glucose, Whole Blood 164 mg/dL (60-115)
[2020-01-16] MEDS: Midazolam HCl/PF 2 MG/2 ML VIAL 4 MG IVPUSH (16:04)
--- NOTE | 2020-01-16 16:30 | P.DN_ITS ---
Discharge Sum: Prov Provider Primary care physician: Unknown Physician Discharge Sum: Diag PCOD Cause of : Acute respiratory failure Contributing Factors (1) Anoxic brain injury: (2) Cocaine abuse: (3) Aspiration pneumonia: (4) Acute respiratory failure with hypoxia: (5) Cardiac arrest: Discharge Sum: Summary Date and Time Date of admission: 01/08/20 15:14 Date of : 01/16/20 Time of : 16:04 Summary Details: Mr. [place] [facility] [place] an [place]OH cardiac arrest. The patient is a 54-year-old gentleman with underlying history of morbid obesity, obstructive sleep apnea, polysubstance abuse, and congestive heart failure. He is unmarried. The NOK is a daughter, Maribell, who lives in [place]. He has no HCP as far as we know. On Jan 07, he was reportedly shopping at a local grocery store and was noted by the staff to look unwell. EMS was called. By report, the nuclear auxiliary operator found him cyanotic but he had a pulse. He was loaded into the ambulance. It is unclear what exactly happened between there and arrival at the hospital. According to the resuscitation report from the ED, the nuclear auxiliary operator reported that they put him in the ambulance to initiate BiPAP, but he went into respiratory arrest. Upon arrival at the ED, the nuclear auxiliary operator were giving [id number] ventilation. They reported that the patient had a rhythm but no pulse. On arrival to the ED, the patient had no pulse and was not breathing. CPR/ACLS was started. The patient was intubated. Initial echo reportedly showed no contractile motion. After three rounds of epi, he as ROSC. He was reportedly moving all 4 extremities after CPR, requiring sedation while on ventilatory support. EKG showed no acute ST abnormality. Tox screen was positive for cocaine. He was admitted to intensive care unit. Echo the next day showed normal left ventricular systolic function with EF 55- 60%. Right ventricular cavity size and systolic function were normal. Both atria were normal in size. There is no obvious valvular pathology. The IVC was dilated with no inspiratory collapse. RVSP was 72mm. Over the next 3 days, multiple attempts were made to wake the patient up and he failed to arouse. On January 10, the patient underwent an MRI of the brain which was notable for diffuse anoxic brain injury with extensive involvement of the bilateral frontoparietal, occipital, and temporal lobes as well as the deep nuclei. There was early evolving cerebral edema with regional sulcal and lateral ventricle effacement, with partial effacement of the suprasellar cistern without overt transtentorial herniation. The cerebellar tonsils were positioned at the level of the foramen magnum without overt tonsillar herniation or brainstem compression at that time. Dr. Vasquez spoke with the family and indicated that the prognosis was grave and the patient was going to . The family chose to continue with critical care management, hoping for a miracle. Over subsequent days, the patient's course was marked by hemodynamic instability with severe hypertension requiring propofol and multiple episodes of SVT requiring cardioversion with adenosine and esmolol. In addition, the patient had persistent temps in the 101-104 range, initially without leukocytosis. And for virtually the entire time the patient was in the hospital, the patient was severely hypoxemic, requiring 100% FiO2 for the last 5 days. Initial chest x- ray showed a right lower lobe infiltrate consistent with aspiration, and the patient was treated with Levaquin (he?s penicillin allergic). In his last two days, he also developed severe hypercarbia, despite minute volumes in the 17-19L range. We?ve had him on fentanyl 300ug/hr to control his WOB, but it hadn?t helped much, w RR is in the mid-high 30?s. The patient remained completely unresponsive, with progressive loss of brainstem reflexes. Over his last two days, he dropped his BP into the 90?s and had progressively deteriorating oxygenations, with Sats dropping into the 80?s, then into the 70?s, and then into the 60s, despite 100% FiO2 and high PEEP. And then on his last day, his renal indices and potassium hermelindo sharply. I met with his daughter Maribell and after discussing the situation with the rest of her family, she decided to discontinue critical care management and change to comfort measures status. The endotracheal tube was removed and the patient passed almost immediately, at 16:04. Additional Data Attending physician: John Avitia
== END 2020-01-16 16:04 | disposition expired | DRG 196 ==
LOC: HO.ED 15:04 → HO.ICU 15:35
PROVIDERS: Physician Assistant; Physician Assistant Medical; Registered Nurse Community Health; Admitting Provider Internal Medicine Pulmonary Disease; Emergency Provider Emergency Medicine; Visit Provider Anesthesiology
DX: I46.9 Cardiac arrest, cause unspecified (principal); J69.0 Pneumonitis due to inhalation of food and vomit; J96.01 Acute respiratory failure with hypoxia; J96.02 Acute respiratory failure with hypercapnia; G93.1 Anoxic brain damage, not elsewhere classified; J45.909 Unspecified asthma, uncomplicated; N17.9 Acute kidney failure, unspecified; E87.0 Hyperosmolality and hypernatremia; R00.0 Tachycardia, unspecified; I50.9 Heart failure, unspecified; E66.01 Morbid (severe) obesity due to excess calories; F14.10 Cocaine abuse, uncomplicated; F17.210 Nicotine dependence, cigarettes, uncomplicated; Z71.6 Tobacco abuse counseling; Z79.51 Long term (current) use of inhaled steroids; Z68.41 Body mass index [BMI] 40.0-44.9, adult; Z79.899 Other long term (current) drug therapy
CPT/HCPCS: 36415; 70450; 70551; 71045; 71250; 74176; 80048; 80053; 80076; 80307; 80320; 81001; 82040; 82803; 82947; 83605; 83615; 83690; 83735; 83880; 84100; 84145; 84300; 84484; 85025; 85027; 85610; 85730; 86850; 86900; 86901; 87040; 87070; 87205; 93005; 93306; 94640; 94660; 94667; 96365; 96366; 96375; 96376; 99283; 99285; C1758; J1940; J1956; J2060; J2250; J2930; J3010